=== PATIENT | male | born 1950 | race Caucasian/White ===

== ENCOUNTER → 2016-09-24 | Outpatient (CLI) | payer MEDICARE, OTHER ==
--- NOTE | 2016-09-24 09:26 | CT ---
EXAMINATION TYPE: CT chest wo con DATE OF EXAM: 09/24/2016 9:00 AM COMPARISON: 03/09/2016 HISTORY: 65-year-old male short of breath, follow-up to prior abnormal exam. TECHNIQUE: Contiguous axial scanning of the chest without IV contrast. Coronal and sagittal reconstru ctions performed. CT DLP: 382 mGycm Automated exposure control for dose reduction was used. FINDINGS: The heart is normal size without pericardial effusion. Coronary vessel calcifications are present und er a marker for coronary artery disease. Ascending aorta measures at the upper limits of normal at 3.5 cm. Moderate atherosclerotic arch calci fications with conventional arch vessel branching anatomy. No thoracic lymphadenopathy. There is a dependent filling defect within the proximal left mainstem bronchus measuring 1.4 cm, new from prior, suspected retained secretions/debris. There is mild diffuse bronchial wall thickening and advanced emphysematous change. New elongated spiculated density peripheral right upper lobe axial image 14 and coronal image 45 christian uring 1.7 x 0.7 x 2.4 cm. A second area of poorly defined 9 mm density posterior left upper lobe axia l image 12. The previously seen 8 mm peripheral left basilar pulmonary nodule has resolved suggesting a nodular a chinedu of atelectasis. No consolidation or pleural effusion. Postsurgical changes at the stomach and GE junction. Bones: Old healed lower left lateral rib fracture deformity again demonstrated. Mild superior endplate compr ession deformity of T8 is chronic. No osseous destructive process. IMPRESSION: 1. ADVANCED EMPHYSEMA WITH RESOLUTION OF THE PREVIOUSLY SEEN NODULE AT THE PERIPHERAL LEFT BASE. 2. HOWEVER, THERE IS A NEW ELONGATED SPICULATED DENSITY MEASURING 1.7 X 0.7 X 2.4 CM IN THE RIGHT UPP ER LOBE. GIVEN THE RAPID DEVELOPMENT OF A LESION THIS SIZE AND ELONGATED APPEARANCE, AN INFECTIOUS/IN FLAMMATORY FOCUS IS SOMEWHAT FAVORED OVER NEOPLASM. CLINICAL CORRELATION RECOMMENDED. EITHER 3 MONTH FOLLOW-UP EXAM OR PET-CT CAN BE PERFORMED.
== END | disposition home or self-care (01) ==
LOC: RADCTMAIN 08:41
PROVIDERS: ATTEND Internal Medicine
DX: J43.9 Emphysema, unspecified (principal); J98.4 Other disorders of lung; R91.1 Solitary pulmonary nodule
CPT/HCPCS: 71250

== ENCOUNTER 2017-12-29 20:02 | Emergency (ER) | payer MEDICARE, OTHER ==
[2017-12-29 20:32] VITALS: RESP 18
[2017-12-29 20:59] LABS: Basophils % (A) 0 %; Eosinophils # (A) 0.2 k/uL (0-0.7); Eosinophils % (A) 2 %; HCT 47.1 % (39.0-53.0); HGB 14.9 gm/dL (13.0-17.5); Lymphocytes # (A) 1.2 k/uL (1.0-4.8); Lymphocytes % (A) 11 %; MCH 29.9 pg (25.0-35.0); MCHC 31.7 g/dL (31.0-37.0); MCV 94.5 fL (80.0-100.0); Monocytes # (A) 0.6 k/uL (0-1.0); Monocytes % (A) 5 %; Neutrophils # (A) 8.9 k/uL (1.3-7.7); Neutrophils % (A) 81 %; Platelet Count 279 k/uL (150-450); RBC 4.99 m/uL (4.30-5.90); WBC 11.1 k/uL (3.8-10.6)
--- NOTE | 2017-12-29 21:00 | ED ---
Fall HPI - General Source: patient Mode of arrival: ambulatory <Latrell Alex - Last Filed: 12/29/17 20:48> <Ligia Hurtado - Last Filed: 12/30/17 00:05> - General Chief Complaint: Fall Stated Complaint: hand & rib injury/SOB Time Seen by Provider: 12/29/17 20:41 - History of Present Illness Initial Comments: 67-year-old male with past medical history of PE, DVT, exposure to hep C, COPD on 3-4 L of oxygen, pressure gastrectomy, partial vagotomy, and appendectomy presented for evaluation of a mechanical fall from standing. States that he was on the fourth step going up the stairs when he tripped over a branch fell backwards. He denies hitting his head and loss of consciousness however he is on Ellick was for the PEs and DVTs. States that he was able to get back up however due to him being on the Ellick was he came to the ED for further treatment and evaluation. He does state that he has left sided chest wall pain and right hand and wrist pain. Denies any other injuries. Has no other complaints. (Latrell Alex) - Related Data Home Medications Medication Instructions Recorded Confirmed Albuterol Nebulized [Ventolin 2.5 mg INHALATION RT-Q4H PRN 11/25/15 12/29/17 Nebulized] Albuterol Sulfate [Proventil Hfa] 2 puff INHALATION RT-Q6H PRN 11/25/15 12/29/17 Budesonide-Formot 160-4.5 Mcg 2 puff INHALATION RT-BID 11/25/15 12/29/17 [Symbicort 160-4.5 Mcg Inhaler] Cyanocobalamin [Vitamin B-12] 1,000 mcg PO DAILY 11/25/15 12/29/17 Tiotropium 18 Mcg/Puff [Spiriva] 1 cap INHALATION RT-DAILY 11/25/15 12/29/17 HYDROcodone/APAP 10-325MG [[place] 1 tab PO Q4HR PRN 03/09/16 12/29/17 10-325] Omeprazole 40 mg PO BID 03/09/16 12/29/17 Apixaban [Eliquis] 2.5 mg PO BID 12/29/17 12/29/17 Melatonin 5 mg PO HS 12/29/17 12/29/17 Morphine Sulfate ER [Ms Contin 30 mg PO Q12HR 12/29/17 12/29/17 30Mg] Sennosides [Senna] 8.6 mg PO DAILY 12/29/17 12/29/17 Previous Rx's Medication Instructions Recorded ALPRAZolam [Xanax] 0.25 mg PO TID PRN #20 tab 09/19/15 Allergies Allergy/AdvReac Type Severity Reaction Status Date / Time theophylline Allergy Rash/Hives Verified 12/29/17 21:41 metaproterenol sulfate AdvReac shaking Verified 12/29/17 21:41 [From Alupent] Review of Systems ROS Other: All systems not noted in ROS Statement are negative. Constitutional: Denies: fever, chills Eyes: Denies: eye pain, vision change ENT: Denies: ear pain, throat pain Respiratory: Reports: dyspnea (At baseline). Denies: cough Cardiovascular: Denies: chest pain, palpitations Endocrine: Denies: fatigue, polydipsia, polyuria Gastrointestinal: Denies: abdominal pain, nausea, vomiting Genitourinary: Denies: urgency, dysuria Musculoskeletal: Reports: arthralgia (Left-sided chest wall pain and right wrist /hand pain). Denies: back pain Skin: Reports: lesions (Puncture lesion to the posterior aspect of the right hand). Denies: rash Neurological: Denies: headache, weakness Psychiatric: Denies: anxiety, depression Hematological/Lymphatic: Reports: easy bleeding (on Eliquis), easy bruising (On Eliquis) <Latrell Alex - Last Filed: 12/29/17 20:48> ROS Other: All systems not noted in ROS Statement are negative. <Ligia Hurtado - Last Filed: 12/30/17 00:05> ROS Statement: Those systems with pertinent positive or pertinent negative responses have been documented in the HPI. Past Medical History Past Medical History: COPD, GERD/Reflux Additional Past Medical History / Comment(s): exposure in past to Hep. C, recent admission in Sep. for COPD-went to [facility] for short time after for rehab to build up strength, using oxygen most of the time 3-4l History of Any Multi-Drug Resistant Organisms: None Reported Past Surgical History: Appendectomy Additional Past Surgical History / Comment(s): 70% OF STOMACH REMOVED R/T ULCER DISEASE, partial vagotomy. Past Anesthesia/Blood Transfusion Reactions: No Reported Reaction Past Psychological History: Anxiety, Depression Smoking Status: Former smoker Past Alcohol Use History: None Reported Past Drug Use History: None Reported - Past Family History Mother Additional Family Medical History / Comment(s): ? brain tumor Father History Unknown: Yes Additional Family Medical History / Comment(s): lymphoma <Latrell Alex - Last Filed: 12/29/17 20:48> General Exam Limitations: no limitations General appearance: alert, in no apparent distress Head exam: Present: atraumatic, normocephalic, normal inspection Eye exam: Present: normal appearance, PERRL, EOMI. Absent: scleral icterus, conjunctival injection, periorbital swelling ENT exam: Present: normal exam, mucous membranes moist Neck exam: Present: normal inspection, full ROM. Absent: tenderness Respiratory exam: Absent: normal lung sounds bilaterally, respiratory distress Cardiovascular Exam: Present: regular rate, normal rhythm GI/Abdominal exam: Present: soft. Absent: distended, tenderness, guarding, rebound, rigid Rectal exam: Present: deferred Extremities exam: Present: tenderness, normal capillary refill, joint swelling. Absent: normal inspection, full ROM Back exam: Present: tenderness, CVA tenderness (R). Absent: normal inspection, full ROM Neurological exam: Present: alert, oriented X3 Psychiatric exam: Present: normal affect, normal mood Skin exam: Present: warm, dry, other (laceration to dorsum of hand) <Latrell Alex - Last Filed: 12/29/17 20:48> Course <Latrell Alex - Last Filed: 12/29/17 20:48> <Ligia Hurtado - Last Filed: 12/30/17 00:05> Vital Signs 12/29/17 12/29/17 20:27 21:39 Temperature 97.5 F L 97.1 F L Pulse Rate 94 89 Respiratory 18 18 Rate Blood Pressure 97/59 125/74 O2 Sat by Pulse 92 L 96 Oximetry Patient is reassessed, wrist x-ray, chest x-ray, rib series, hand, C-spine and a CT of the brain and cervical spine are unremarkable, this was discussed with the patient and be discharged to follow with his family doctor (Ligia Hurtado) - Reevaluation(s) Reevaluation #1: we wii ambulate him in the ER and see if he is stableon his feet 12/30/17 00:03 (Ligia Hurtado) Medical Decision Making <Latrell Alex - Last Filed: 12/29/17 20:48> - Lab Data Result diagrams: 12/29/17 20:45 12/29/17 20:45 <Ligia Hurtado - Last Filed: 12/30/17 00:05> - Medical Decision Making 67 yo male on Eliquis for PE/DVT presenting for evaluation of mechanical fall down 4 stairs. On physical examination he has no tenderness to the head neck or back. He does have tenderness to the left chest wall and the right hand/ wrist. There is a puncture wound to the palmar aspect of the right hand and a laceration to the dorsum of the right hand. [place] physical exam is benign with the exception of the patient being on oxygen for COPD and being mildly short of breath. Given that the patient had a fall from a height while on Ellick was this is a P2 trauma and the on-call surgeon was called and informed of plan to obtain CT head/neck, xrays of injuries, and obtain labs. He agreed with plan and had no further requests. (Latrell Alex) - Lab Data Lab Results 12/29/17 12/29/17 12/29/17 Range/Units 20:45 20:45 20:45 WBC 11.1 H (3.8-10.6) k/uL RBC 4.99 (4.30-5.90) m/uL Hgb 14.9 (13.0-17.5) gm/dL Hct 47.1 (39.0-53.0) % MCV 94.5 (80.0-100.0) fL MCH 29.9 (25.0-35.0) pg MCHC 31.7 (31.0-37.0) g/dL RDW 14.0 (11.5-15.5) % Plt Count 279 (150-450) k/uL Neutrophils % 81 % Lymphocytes % 11 % Monocytes % 5 % Eosinophils % 2 % Basophils % 0 % Neutrophils # 8.9 H (1.3-7.7) k/uL Lymphocytes # 1.2 (1.0-4.8) k/uL Monocytes # 0.6 (0-1.0) k/uL Eosinophils # 0.2 (0-0.7) k/uL Basophils # 0.0 (0-0.2) k/uL PT (9.0-12.0) sec INR (<1.2) APTT (22.0-30.0) sec Sodium 139 (137-145) mmol/L Potassium 5.2 H (3.5-5.1) mmol/L Chloride 97 L (98-107) mmol/L Carbon Dioxide 30 (22-30) mmol/L Anion Gap 12 mmol/L BUN 16 (9-20) mg/dL Creatinine 0.80 (0.66-1.25) mg/dL Est GFR (CKD-EPI)AfAm >90 (>60 ml/min/1.73 sqM) Est GFR (CKD-EPI)NonAf >90 (>60 ml/min/1.73 sqM) Glucose 97 (74-99) mg/dL Plasma Lactic Acid Calin (0.7-2.0) mmol/L Calcium 9.7 (8.4-10.2) mg/dL Total Bilirubin 0.5 (0.2-1.3) mg/dL AST 38 (17-59) U/L ALT 31 (21-72) U/L Alkaline Phosphatase 66 (38-126) U/L Total Creatine Kinase 179 H (55-170) U/L CK-MB (CK-2) 5.0 H* (0.0-2.4) ng/mL CK-MB (CK-2) Rel Index 2.8 Troponin I <0.012 (0.000-0.034) ng/mL Total Protein 7.3 (6.3-8.2) g/dL Albumin 4.5 (3.5-5.0) g/dL Amylase 59 (30-110) U/L Lipase 61 (23-300) U/L Serum Alcohol <10 mg/dL Blood Type Blood Type Recheck Antibody Screen Spec Expiration Date 12/29/17 12/29/17 12/29/17 Range/Units 20:45 20:45 20:45 WBC (3.8-10.6) k/uL RBC (4.30-5.90) m/uL Hgb (13.0-17.5) gm/dL Hct (39.0-53.0) % MCV (80.0-100.0) fL MCH (25.0-35.0) pg MCHC (31.0-37.0) g/dL RDW (11.5-15.5) % Plt Count (150-450) k/uL Neutrophils % % Lymphocytes % % Monocytes % % Eosinophils % % Basophils % % Neutrophils # (1.3-7.7) k/uL Lymphocytes # (1.0-4.8) k/uL Monocytes # (0-1.0) k/uL Eosinophils # (0-0.7) k/uL Basophils # (0-0.2) k/uL PT 9.5 (9.0-12.0) sec INR 1.0 (<1.2) APTT 23.5 (22.0-30.0) sec Sodium (137-145) mmol/L Potassium (3.5-5.1) mmol/L Chloride (98-107) mmol/L Carbon Dioxide (22-30) mmol/L Anion Gap mmol/L BUN (9-20) mg/dL Creatinine (0.66-1.25) mg/dL Est GFR (CKD-EPI)AfAm (>60 ml/min/1.73 sqM) Est GFR (CKD-EPI)NonAf (>60 ml/min/1.73 sqM) Glucose (74-99) mg/dL Plasma Lactic Acid Calin 1.9 (0.7-2.0) mmol/L Calcium (8.4-10.2) mg/dL Total Bilirubin (0.2-1.3) mg/dL AST (17-59) U/L ALT (21-72) U/L Alkaline Phosphatase (38-126) U/L Total Creatine Kinase (55-170) U/L CK-MB (CK-2) (0.0-2.4) ng/mL CK-MB (CK-2) Rel Index Troponin I (0.000-0.034) ng/mL Total Protein (6.3-8.2) g/dL Albumin (3.5-5.0) g/dL Amylase (30-110) U/L Lipase (23-300) U/L Serum Alcohol mg/dL Blood Type A Negative Blood Type Recheck CABO Indicated Antibody Screen NEGATIVE Spec Expiration Date 01/01/2018 - 7194 Disposition <Latrell Alex - Last Filed: 12/29/17 20:48> <Ligia Hurtado - Last Filed: 12/30/17 00:05> Clinical Impression: Fall Instructions: Fall Prevention for Older Adults (ED) Referrals: Nonstaff,Physician [Primary Care Provider] - 1-2 days
[2017-12-29 21:10] LABS: ALT 31 U/L (21-72); AST 38 U/L (17-59); Albumin 4.5 g/dL (3.5-5.0); Alcohol <10 mg/dL; Alkaline Phosphatase 66 U/L (38-126); Amylase 59 U/L (30-110); Anion Gap 12 mmol/L; Blood Urea Nitrogen 16 mg/dL (9-20); Calcium 9.7 mg/dL (8.4-10.2); Carbon Dioxide 30 mmol/L (22-30); Chloride 97 mmol/L (98-107); Glucose 97 mg/dL (74-99); Lipase 61 U/L (23-300); Potassium 5.2 mmol/L (3.5-5.1); Sodium 139 mmol/L (137-145); Total Bilirubin 0.5 mg/dL (0.2-1.3); Total Protein 7.3 g/dL (6.3-8.2)
[2017-12-29 21:21] LABS: Partial Thromboplastin Time 23.5 sec (22.0-30.0); Prothrombin Time 9.5 sec (9.0-12.0)
[2017-12-29 21:28] LABS: Creatine Kinase 179 U/L (55-170)
[2017-12-29 21:40] VITALS: TEMP 97.1
[2017-12-29 21:41] LABS: Troponin I <0.012 ng/mL (0.000-0.034)
--- NOTE | 2017-12-29 22:07 | CT ---
EXAMINATION TYPE: CT brain carly rojas DATE OF EXAM: 12/29/2017 COMPARISON: NONE HISTORY: Fall down 4 stairs today, patient on blood thinners. CT DLP: 1357.8 mGycm Automated exposure control for dose reduction was used. TECHNIQUE: CT scan of the head and cervical spine are performed without contrast. FINDINGS: There is no acute intracranial hemorrhage, mass effect, or midline shift identified. The ventricles and sulci are within normal limits in size. The globes are intact and the visualized sin uses are clear. Cervical spine is visualized in its entirety from C1 through upper thoracic levels and demonstrates s atisfactory alignment without evidence of acute fracture or dislocation. Prevertebral soft tissue ap pears within normal limits. The C1-C2 articulation is unremarkable. IMPRESSION: 1. There is no acute fracture or dislocation evident in the cervical spine. 2. No acute intracranial hemorrhage, mass effect, or midline shift is seen.
--- NOTE | 2017-12-29 22:49 | XR ---
PROCEDURE: XR wrist complete RT 4 views DATE AND TIME: 12/29/2017 9:30 PM REFERRING PHYSICIAN: Latrell Alex DO CLINICAL INDICATION: PHH, Pain after trauma TECHNIQUE: Department protocol. COMPARISON: None FINDINGS: There is no fracture or malalignment. The soft tissues are unremarkable. IMPRESSION: NO ACUTE PROCESS.
--- NOTE | 2017-12-29 22:52 | XR ---
PROCEDURE: XR ribs LT w pa chest xray - 5V DATE AND TIME: 12/29/2017 9:30 PM REFERRING PHYSICIAN: Latrell Alex DO CLINICAL INDICATION: PHH, Pain TECHNIQUE: Department protocol. COMPARISON: 09/18/2015 FINDINGS: There is no pneumothorax or pleural effusion. There is no fracture or malalignment. No incidental acute findings. IMPRESSION: NO ACUTE PROCESS.
--- NOTE | 2017-12-29 22:54 | XR ---
PROCEDURE: XR hand complete RT 3 views DATE AND TIME: 12/29/2017 9:30 PM REFERRING PHYSICIAN: Latrell Alex DO CLINICAL INDICATION: PHH, Pain after trauma TECHNIQUE: Department protocol. COMPARISON: None FINDINGS: There is no fracture or malalignment. The soft tissues are unremarkable. IMPRESSION: NO ACUTE PROCESS.
[2017-12-30 00:21] VITALS: BP 126/72; PULSE 84
== END 2017-12-30 00:16 ==
LOC: EC 20:02
DX: S61.411A Laceration without foreign body of right hand, initial encounter (principal); R07.89 Other chest pain; J44.9 Chronic obstructive pulmonary disease, unspecified; K21.9 Gastro-esophageal reflux disease without esophagitis; F32.9 Major depressive disorder, single episode, unspecified; F41.9 Anxiety disorder, unspecified; Z86.19 Personal history of other infectious and parasitic diseases; Z87.891 Personal history of nicotine dependence; Z86.711 Personal history of pulmonary embolism; Z86.718 Personal history of other venous thrombosis and embolism; Z79.01 Long term (current) use of anticoagulants; Z79.891 Long term (current) use of opiate analgesic; Z79.51 Long term (current) use of inhaled steroids; Z79.899 Other long term (current) drug therapy; Z88.8 Allergy status to other drugs, medicaments and biological substances; W10.9XXA Fall (on) (from) unspecified stairs and steps, initial encounter; Y92.89 Other specified places as the place of occurrence of the external cause
CPT/HCPCS: 36415; 70450; 72125; 80053; 80320; 82150; 82550; 82553; 83605; 83690; 84484; 85025; 85610; 85730; 86850; 86900; 86901; 99284

== ENCOUNTER 2018-02-15 14:03 | Inpatient (IN) | payer MEDICARE, OTHER ==
[2018-02-15] MEDS ORDERED: SODIUM CHLORIDE 0.9% 1,000 ML IV STA (14:12)
[2018-02-15] MEDS ORDERED: AZITHROMYCIN 500 MG in SODIUM CHLORIDE 0.9% 250 ML IVPB STA (14:12)
[2018-02-15] MEDS ORDERED: ALBUTEROL NEBULIZED 2.5 MG/3 ML INHALATION STA (14:12)
[2018-02-15] MEDS ORDERED: IPRATROPIUM 0.5 MG/2.5 ML NEBU INHALATION STA (14:12)
[2018-02-15] MEDS ORDERED: AZITHROMYCIN 500 MG in DEXTROSE 5% IN WATER 250 ML IVPB STA ×2 (14:33)
[2018-02-15 14:51] LABS: Basophils % (A) 0 %; Eosinophils % (A) 0 %; HCT 49.2 % (39.0-53.0); HGB 15.6 gm/dL (13.0-17.5); Lymphocytes # (A) 0.7 k/uL (1.0-4.8); Lymphocytes % (A) 9 %; MCH 29.4 pg (25.0-35.0); MCHC 31.8 g/dL (31.0-37.0); MCV 92.6 fL (80.0-100.0); Mean Platelet Volume 6.9; Monocytes # (A) 0.6 k/uL (0-1.0); Monocytes % (A) 9 %; Neutrophils # (A) 5.7 k/uL (1.3-7.7); Neutrophils % (A) 80 %; Platelet Count 328 k/uL (150-450); RBC 5.31 m/uL (4.30-5.90); RDW 13.6 % (11.5-15.5); WBC 7.1 k/uL (3.8-10.6)
[2018-02-15 15:02] LABS: Partial Thromboplastin Time 25.8 sec (22.0-30.0); Prothrombin Time 9.7 sec (9.0-12.0)
[2018-02-15 15:06] LABS: ALT 27 U/L (21-72); AST 31 U/L (17-59); Albumin 3.8 g/dL (3.5-5.0); Alkaline Phosphatase 68 U/L (38-126); Anion Gap 11 mmol/L; Blood Urea Nitrogen 18 mg/dL (9-20); Carbon Dioxide 34 mmol/L (22-30); Chloride 90 mmol/L (98-107); Glucose 119 mg/dL (74-99); Magnesium 2.2 mg/dL (1.6-2.3); Potassium 5.1 mmol/L (3.5-5.1); Sodium 135 mmol/L (137-145); Total Bilirubin 0.6 mg/dL (0.2-1.3)
[2018-02-15 15:34] LABS: Creatine Kinase 50 U/L (55-170)
[2018-02-15 15:47] LABS: Troponin I <0.012 ng/mL (0.000-0.034)
[2018-02-15] MEDS ORDERED: methylPREDNISolone SOD SUCCI 125 MG/2 ML VIAL IV STA (15:51)
--- NOTE | 2018-02-15 15:51 | ED ---
General Adult HPI - General Chief complaint: Shortness of Breath Stated complaint: SOB Time Seen by Provider: 02/15/18 14:07 Source: patient, RN notes reviewed, old records reviewed Mode of arrival: wheelchair Limitations: no limitations - History of Present Illness Initial comments: This is a 67-year-old male the ER for evasive significant short of breath. Patient is found in front of hospital with significant dyspnea and trouble catching his breath. Patient continues to complain of shortness of breath. Has a long history of smoking. Currently denying any pain, does have increased cough and congestion states symptoms 2 weeks much worse over last 2 days with increase in sputum and change in color of sputum to very dark. Denies blood. Denies fevers. No travel history no recent hospitalizations no known sick contacts - Related Data Home Medications Medication Instructions Recorded Confirmed Albuterol Nebulized [Ventolin 2.5 mg INHALATION RT-Q4H PRN 11/25/15 02/15/18 Nebulized] Albuterol Sulfate [Proventil Hfa] 2 puff INHALATION RT-Q6H PRN 11/25/15 02/15/18 Budesonide-Formot 160-4.5 Mcg 2 puff INHALATION RT-BID 11/25/15 02/15/18 [Symbicort 160-4.5 Mcg Inhaler] Cyanocobalamin [Vitamin B-12] 1,000 mcg PO DAILY 11/25/15 02/15/18 Tiotropium 18 Mcg/Puff [Spiriva] 1 cap INHALATION RT-DAILY 11/25/15 02/15/18 HYDROcodone/APAP 10-325MG [[place] 1 tab PO Q4HR PRN 03/09/16 02/15/18 10-325] Apixaban [Eliquis] 2.5 mg PO BID 12/29/17 02/15/18 Morphine Sulfate ER [Ms Contin 30 mg PO Q12HR PRN 12/29/17 02/15/18 30Mg] Sennosides [Senna] 8.6 mg PO DAILY 12/29/17 02/15/18 LORazepam [Ativan] 1 mg PO Q6H PRN 02/15/18 02/15/18 Omeprazole 20 mg PO BID 02/15/18 02/15/18 Ranitidine HCl [Zantac] 150 mg PO BID 02/15/18 02/15/18 Previous Rx's Medication Instructions Recorded ALPRAZolam [Xanax] 0.25 mg PO TID PRN #20 tab 09/19/15 Allergies Allergy/AdvReac Type Severity Reaction Status Date / Time theophylline Allergy Rash/Hives Verified 02/15/18 14:55 metaproterenol sulfate AdvReac shaking Verified 02/15/18 14:55 [From Alupent] Review of Systems ROS Statement: Those systems with pertinent positive or pertinent negative responses have been documented in the HPI. ROS Other: All systems not noted in ROS Statement are negative. Past Medical History Past Medical History: COPD, GERD/Reflux Additional Past Medical History / Comment(s): exposure in past to Hep. C, recent admission in Sep. for COPD-went to [facility] for short time after for rehab to build up strength, using oxygen most of the time 3-4l History of Any Multi-Drug Resistant Organisms: None Reported Past Surgical History: Appendectomy Additional Past Surgical History / Comment(s): 70% OF STOMACH REMOVED R/T ULCER DISEASE, partial vagotomy. Past Anesthesia/Blood Transfusion Reactions: No Reported Reaction Past Psychological History: Anxiety, Depression Smoking Status: Former smoker Past Alcohol Use History: None Reported Past Drug Use History: None Reported - Past Family History Mother Additional Family Medical History / Comment(s): ? brain tumor Father History Unknown: Yes Additional Family Medical History / Comment(s): lymphoma General Exam Limitations: no limitations General appearance: alert, in no apparent distress, anxious Head exam: Present: atraumatic, normocephalic, normal inspection Eye exam: Present: normal appearance, PERRL, EOMI. Absent: scleral icterus, conjunctival injection, periorbital swelling ENT exam: Present: normal exam, mucous membranes moist Neck exam: Present: normal inspection. Absent: tenderness, meningismus, lymphadenopathy Respiratory exam: Present: normal lung sounds bilaterally. Absent: respiratory distress, wheezes, rales, rhonchi, stridor Cardiovascular Exam: Present: normal rhythm, tachycardia, normal heart sounds. Absent: systolic murmur, diastolic murmur, rubs, gallop, clicks GI/Abdominal exam: Present: soft, normal bowel sounds. Absent: distended, tenderness, guarding, rebound, rigid Extremities exam: Present: normal inspection, full ROM, normal capillary refill. Absent: tenderness, pedal edema, joint swelling, calf tenderness Back exam: Present: normal inspection Neurological exam: Present: alert, oriented X3, CN II-XII intact Psychiatric exam: Present: normal affect, normal mood Skin exam: Present: warm, dry, intact, normal color. Absent: rash Course Vital Signs 02/15/18 02/15/18 02/15/18 14:12 14:26 14:37 Temperature 97 F L Pulse Rate 115 H 108 H Respiratory 24 24 Rate Blood Pressure 147/86 O2 Sat by Pulse 98 Oximetry 02/15/18 02/15/18 14:58 15:29 Temperature Pulse Rate 108 H 110 H Respiratory Rate Blood Pressure O2 Sat by Pulse Oximetry - Reevaluation(s) Reevaluation #1: 02/15/18 15:50 Patient has mild improvement with breathing EKG Findings - EKG Comments: EKG Findings:: EKG shows sinus tachycardia rate 110, MO 1:30, QRS 74, QTc 435 Medical Decision Making - Medical Decision Making 67 male the ER with significant shortness of breath and COPD exacerbation with hypoxia. Patient is to be admitted for rehydration, cardiopulmonary support, continue breathing treatments and steroids. - Lab Data Result diagrams: 02/15/18 14:29 02/15/18 14:29 Lab Results 02/15/18 02/15/18 02/15/18 Range/Units 14:29 14:29 14:29 WBC 7.1 (3.8-10.6) k/uL RBC 5.31 (4.30-5.90) m/uL Hgb 15.6 (13.0-17.5) gm/dL Hct 49.2 (39.0-53.0) % MCV 92.6 (80.0-100.0) fL MCH 29.4 (25.0-35.0) pg MCHC 31.8 (31.0-37.0) g/dL RDW 13.6 (11.5-15.5) % Plt Count 328 (150-450) k/uL Neutrophils % 80 % Lymphocytes % 9 % Monocytes % 9 % Eosinophils % 0 % Basophils % 0 % Neutrophils # 5.7 (1.3-7.7) k/uL Lymphocytes # 0.7 L (1.0-4.8) k/uL Monocytes # 0.6 (0-1.0) k/uL Eosinophils # 0.0 (0-0.7) k/uL Basophils # 0.0 (0-0.2) k/uL PT (9.0-12.0) sec INR (<1.2) APTT (22.0-30.0) sec Sodium 135 L (137-145) mmol/L Potassium 5.1 (3.5-5.1) mmol/L Chloride 90 L (98-107) mmol/L Carbon Dioxide 34 H (22-30) mmol/L Anion Gap 11 mmol/L BUN 18 (9-20) mg/dL Creatinine 0.65 L (0.66-1.25) mg/dL Est GFR (CKD-EPI)AfAm >90 (>60 ml/min/1.73 sqM) Est GFR (CKD-EPI)NonAf >90 (>60 ml/min/1.73 sqM) Glucose 119 H (74-99) mg/dL Calcium 9.0 (8.4-10.2) mg/dL Magnesium 2.2 (1.6-2.3) mg/dL Total Bilirubin 0.6 (0.2-1.3) mg/dL AST 31 (17-59) U/L ALT 27 (21-72) U/L Alkaline Phosphatase 68 (38-126) U/L Total Creatine Kinase 50 L (55-170) U/L NT-Pro-B Natriuret Pep pg/mL Total Protein 7.0 (6.3-8.2) g/dL Albumin 3.8 (3.5-5.0) g/dL 02/15/18 02/15/18 Range/Units 14:29 14:29 WBC (3.8-10.6) k/uL RBC (4.30-5.90) m/uL Hgb (13.0-17.5) gm/dL Hct (39.0-53.0) % MCV (80.0-100.0) fL MCH (25.0-35.0) pg MCHC (31.0-37.0) g/dL RDW (11.5-15.5) % Plt Count (150-450) k/uL Neutrophils % % Lymphocytes % % Monocytes % % Eosinophils % % Basophils % % Neutrophils # (1.3-7.7) k/uL Lymphocytes # (1.0-4.8) k/uL Monocytes # (0-1.0) k/uL Eosinophils # (0-0.7) k/uL Basophils # (0-0.2) k/uL PT 9.7 (9.0-12.0) sec INR 1.0 (<1.2) APTT 25.8 (22.0-30.0) sec Sodium (137-145) mmol/L Potassium (3.5-5.1) mmol/L Chloride (98-107) mmol/L Carbon Dioxide (22-30) mmol/L Anion Gap mmol/L BUN (9-20) mg/dL Creatinine (0.66-1.25) mg/dL Est GFR (CKD-EPI)AfAm (>60 ml/min/1.73 sqM) Est GFR (CKD-EPI)NonAf (>60 ml/min/1.73 sqM) Glucose (74-99) mg/dL Calcium (8.4-10.2) mg/dL Magnesium (1.6-2.3) mg/dL Total Bilirubin (0.2-1.3) mg/dL AST (17-59) U/L ALT (21-72) U/L Alkaline Phosphatase (38-126) U/L Total Creatine Kinase (55-170) U/L NT-Pro-B Natriuret Pep 927 pg/mL Total Protein (6.3-8.2) g/dL Albumin (3.5-5.0) g/dL - Radiology Data Radiology results: report reviewed (Chest x-rays negative for acute disease), image reviewed Disposition Clinical Impression: COPD with acute exacerbation, Acute exacerbation of chronic obstructive airways disease Disposition: ADMITTED IP TO THIS [facility] Condition: Fair Is patient prescribed a controlled substance at d/c from ED?: No Referrals: Nonstaff,Physician [Primary Care Provider] - 1-2 days
[2018-02-15 15:52] LABS: Creatine Kinase MB 2.8 ng/mL (0.0-2.4)
--- NOTE | 2018-02-15 16:21 | XR ---
EXAMINATION TYPE: XR chest 1V portable DATE OF EXAM: 02/15/2018 CLINICAL HISTORY: Difficulty breathing progress study. History of COPD. TECHNIQUE: Single AP portable upright view of the chest is obtained. COMPARISON: Chest x-ray from December 29, 2017. CT chest September 24, 2016. FINDINGS: There is underlying emphysematous change redemonstrated. There is persistent blunting of b ilateral costophrenic angles likely product of underlying COPD. Scattered areas of parenchymal scarri ng are redemonstrated bilaterally. There is persistent spiculated nodule lateral right upper lung fel t grossly stable but was new from 2015 CT. follow-up CT and/or PET CT is advised if no further workup was performed since September 2016. No new suspicious focal airspace opacity or pneumothorax is seen bilaterally. Cardiac silhouette size is stable and within normal limits with atherosclerotic thoracic aorta. Osseous structures are intact. IMPRESSION: Overall stable findings, chronic emphysematous change without acute pulmonary process. Other findings as noted above.
[2018-02-15] MEDS ORDERED: SENNOSIDES 8.6 MG TAB PO PRN (17:12)
[2018-02-15] MEDS ORDERED: ALPRAZolam 0.25 MG TAB PO PRN (17:12)
--- NOTE | 2018-02-15 17:41 | P.HPIM ---
History of Present Illness 67-year-old the male came in with compensative shortness of breath has been going on for be progressively worsening patient has advanced COPD uses about 3 L of oxygen at rest and 4 L upon amble and. Patient is unable to even walk a few feet without getting short of breath patient is comparing of cough without any sputum production chest x-ray did not show any pneumonic process. Patient was started on IV steroids, his demisewas subsequently admitted. Patient with anti-correlation not sure why he is on anti-correlation as to have to check with the patient. Patient denied any fever chills. Patient quit smoking 2 months ago Review of Systems REVIEW OF SYSTEMS: CONSTITUTIONAL: No fever, no malaise, no fatigue. HEENT: No recent visual problems or hearing problems. Denied any sore throat. CARDIOVASCULAR: No chest pain, orthopnea, PND, no palpitations, no syncope. PULMONARY: As mentioned in HPI GASTROINTESTINAL: No diarrhea, no nausea, no vomiting, no abdominal pain. Normoactive bowel sounds. NEUROLOGICAL: No headaches, no weakness, no numbness. HEMATOLOGICAL: Denies any bleeding or petechiae. GENITOURINARY: Denies any burning micturition, frequency, or urgency. MUSCULOSKELETAL/RHEUMATOLOGICAL: Denies any joint pain, swelling, or any muscle pain. ENDOCRINE: Denies any polyuria or polydipsia. The rest of the 14-point review of systems is negative. Past Medical History Past Medical History: COPD, GERD/Reflux Additional Past Medical History / Comment(s): exposure in past to Hep. C, recent admission in Sep. for COPD-went to [facility] for short time after for rehab to build up strength, using oxygen most of the time 3-4l History of Any Multi-Drug Resistant Organisms: None Reported Past Surgical History: Appendectomy Additional Past Surgical History / Comment(s): 70% OF STOMACH REMOVED R/T ULCER DISEASE, partial vagotomy. Past Anesthesia/Blood Transfusion Reactions: No Reported Reaction Past Psychological History: Anxiety, Depression Smoking Status: Former smoker Past Alcohol Use History: None Reported Past Drug Use History: None Reported - Past Family History Mother Additional Family Medical History / Comment(s): ? brain tumor Father History Unknown: Yes Additional Family Medical History / Comment(s): lymphoma Medications and Allergies Home Medications Medication Instructions Recorded Confirmed Type ALPRAZolam [Xanax] 0.25 mg PO TID PRN #20 tab 09/19/15 02/15/18 Rx Albuterol Nebulized [Ventolin 2.5 mg INHALATION RT-Q4H PRN 11/25/15 02/15/18 History Nebulized] Albuterol Sulfate [Proventil Hfa] 2 puff INHALATION RT-Q6H PRN 11/25/15 History Budesonide-Formot 160-4.5 Mcg 2 puff INHALATION RT-BID 11/25/15 02/15/18 History [Symbicort 160-4.5 Mcg Inhaler] Cyanocobalamin [Vitamin B-12] 1,000 mcg PO DAILY 11/25/15 02/15/18 History Tiotropium 18 Mcg/Puff [Spiriva] 1 cap INHALATION RT-DAILY 11/25/15 02/15/18 History HYDROcodone/APAP 10-325MG [[place] 1 tab PO Q4HR PRN 03/09/16 02/15/18 History 10-325] Apixaban [Eliquis] 2.5 mg PO BID 12/29/17 02/15/18 History Morphine Sulfate ER [Ms Contin 30 mg PO Q12HR PRN 12/29/17 02/15/18 History 30Mg] Sennosides [Senna] 8.6 mg PO DAILY 12/29/17 02/15/18 History LORazepam [Ativan] 1 mg PO Q6H PRN 02/15/18 02/15/18 History Omeprazole 20 mg PO BID 02/15/18 02/15/18 History Ranitidine HCl [Zantac] 150 mg PO BID 02/15/18 02/15/18 History Allergies Allergy/AdvReac Type Severity Reaction Status Date / Time theophylline Allergy Rash/Hives Verified 02/15/18 14:55 metaproterenol sulfate AdvReac shaking Verified 02/15/18 14:55 [From Alupent] Physical Exam Vitals: Vital Signs Temp Pulse Resp BP Pulse Ox 02/15/18 16:51 97.7 F 107 H 20 117/66 99 02/15/18 15:29 110 H 02/15/18 14:58 108 H 02/15/18 14:37 24 02/15/18 14:26 108 H 02/15/18 14:12 97 F L 115 H 24 147/86 98 Intake and Output 02/15/18 02/15/18 02/15/18 06:59 14:59 22:59 Other: Weight 42.91 kg PHYSICAL EXAMINATION: GENERAL: The patient is alert and oriented x3, not in any acute distress. Well developed, well nourished. HEENT: Pupils are round and equally reacting to light. EOMI. No scleral icterus. No conjunctival pallor. Normocephalic, atraumatic. No pharyngeal erythema. No thyromegaly. CARDIOVASCULAR: S1 and S2 present. No murmurs, rubs, or gallops. PULMONARY: Diminished air entry into bilateral lung weir no wheezing was appreciated no crackles were appreciated ABDOMEN: Soft, nontender, nondistended, normoactive bowel sounds. No palpable organomegaly. MUSCULOSKELETAL: No joint swelling or deformity. EXTREMITIES: No cyanosis, clubbing, or pedal edema. NEUROLOGICAL: Gross neurological examination did not reveal any focal deficits. SKIN: No rashes. Results CBC & Chem 7: 02/15/18 14:29 02/15/18 14:29 Labs: Abnormal Lab Results - Last 24 Hours (Table) 02/15/18 02/15/18 02/15/18 Range/Units 14:29 14:29 14:29 Lymphocytes # 0.7 L (1.0-4.8) k/uL Sodium 135 L (137-145) mmol/L Chloride 90 L (98-107) mmol/L Carbon Dioxide 34 H (22-30) mmol/L Creatinine 0.65 L (0.66-1.25) mg/dL Glucose 119 H (74-99) mg/dL Total Creatine Kinase 50 L (55-170) U/L CK-MB (CK-2) 2.8 H* (0.0-2.4) ng/mL Assessment and Plan Plan: -Acute on chronic hypercapnic respiratory failure secondary to COPD exacerbation : Patient will be can you done systemic strides in nature treatments. Consult pulmonary. Patient has advanced COPD -Tracheobronchitis -Anxiety and depression -Gastroesophageal reflux disease -Chronic weight loss unintentional, further workup as an outpatient starting with regular screening procedures and CAT scan of the chest considering his smoking history
[2018-02-15 17:45] VITALS: BMI 13.9
[2018-02-15] MEDS: SODIUM CHLORIDE 0.9% 1,000 ML IV SCH (18:13)
[2018-02-15] MEDS: PANTOPRAZOLE 40 MG TABLET PO SCH (18:20)
[2018-02-15] MEDS ORDERED: methylPREDNISolone SOD SUCCI 125 MG/2 ML VIAL IV SCH (20:00)
[2018-02-15] MEDS: SYMBICORT 160-4.5 MCG INHALER INHALATION SCH (20:36)
[2018-02-15] MEDS: IPRATROPIUM-ALBUTEROL 3 ML NEB INHALATION SCH (20:36)
[2018-02-15 21:28] LABS: Glucose,Whole Blood 181 mg/dL (75-99)
[2018-02-15] MEDS: APIXABAN 2.5 MG TABLET PO SCH (22:25)
[2018-02-15] MEDS: INSULIN ASPART 100 UNIT/ML 1 ML 10 ML VIAL SQ SCH (22:25)
[2018-02-16] MEDS: methylPREDNISolone SOD SUCCI 40 MG/ML 1 ML VIAL IV SCH ×3 (00:31→17:36)
[2018-02-16] MEDS: SODIUM CHLORIDE 0.9% 1,000 ML IV SCH ×3 (03:50→21:05)
[2018-02-16 04:12] LABS: Hemoglobin A1C 5.5 % (4.0-6.0)
[2018-02-16 07:42] LABS: Glucose,Whole Blood 138 mg/dL (75-99)
[2018-02-16] MEDS: SYMBICORT 160-4.5 MCG INHALER INHALATION SCH ×2 (07:51→19:55)
[2018-02-16] MEDS: IPRATROPIUM-ALBUTEROL 3 ML NEB INHALATION SCH ×4 (07:51→19:55)
[2018-02-16] MEDS: INSULIN ASPART 100 UNIT/ML 1 ML 10 ML VIAL SQ SCH ×4 (08:22→21:05)
[2018-02-16] MEDS ORDERED: NICOTINE 21MG/24HR PATCH TRANSDERM SCH (09:00)
[2018-02-16] MEDS ORDERED: ENOXAPARIN 40 MG/0.4 ML SYRINGE SQ SCH (09:00)
[2018-02-16] MEDS: MORPHINE SULFATE ER 30 MG TABLET PO PRN (09:09)
[2018-02-16] MEDS: AZITHROMYCIN 500 MG TAB PO SCH (09:09)
[2018-02-16] MEDS: PANTOPRAZOLE 40 MG TABLET PO SCH ×2 (09:09→17:36)
[2018-02-16] MEDS: APIXABAN 2.5 MG TABLET PO SCH ×2 (09:10→21:04)
[2018-02-16 12:20] LABS: Glucose,Whole Blood 215 mg/dL (75-99)
--- NOTE | 2018-02-16 15:50 | P.CNPUL ---
History of Present Illness Consult date: 02/16/18 Reason for consult: dyspnea, COPD, abnormal CXR/CT Chief complaint: Severe dyspnea, COPD exacerbation, spiculated nodule in the right lung History of present illness: Mr. Coello is a 67-year-old white male patient who presented to the hospital on 02/15/2018 with severe shortness of breath, patient was found in front of the hospital in severe respiratory distress. Patient reports increased cough, chest congestion, and worsening dyspnea over the course of 2 weeks, and his sputum was very dark, but denies hemoptysis. Denies any fever or chills. Denies any sick contacts. Patient has a known history of severe advanced oxygen -dependent COPD, with previously documented FEV1 of 1.14 L or 36% of predicted from 2017. Patient normally follows with [facility]. In 2016 he was noted to have a 8 mm peripheral left basilar pulmonary nodule. He was also diagnosed with pulmonary emboli at that time and was placed on anticoagulation in the form of the Xarelto, he remains on anticoagulation at this time, in the form of Eliquis 2.5 mm twice daily. In 2017 CT chest showed advanced emphysema, and a new elongated spiculated density measuring 1.7 x 0.7 x 2.4 cm in the right upper lobe. Patient was scheduled [facility], however in view of patient's poor lung function the procedure considered risky, and the patient decided not to go through with it. Patient had 2 PET scans, the results of which are unavailable to us. Patient is very frail and cachectic, and has severe exercise capacity limitation related to his poor lung function. Past medical history is positive for severe peptic ulcer disease, status post gastrectomy, COPD, past exposure to hepatitis C, anxiety, depression, past history of nicotine dependence, patient carries a [id number] smoking history. Has a history of service, 21 years in the [employer]. His maintenance inhalers include Spiriva, Symbicort, Ventolin, and albuterol nebulized treatments. Patient was last seen in the pulmonary office by Dr. 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 Chest x-ray showed chronic emphysematous changes without acute pulmonary process, and a persistent spiculated nodule in the lateral right upper lung. EKG showed sinus tachycardia rate of 110 BPM. Labs showed white count of 7.1, hemoglobin of 15.6, sodium of 135, potassium is 5.1, chloride is 90, CO2 34, BUN is 18, creatinine 0.65, CK-MB of 2.8, troponin was negative 1, proBNP of 927. Review of Systems All systems: negative Constitutional: Denies chills, Denies fever Eyes: denies blurred vision, denies pain Ears, nose, mouth and throat: Denies headache, Denies sore throat Cardiovascular: Denies chest pain, Denies shortness of breath Respiratory: Reports congestion, Reports dyspnea, Reports home oxygen, Denies cough Gastrointestinal: Denies abdominal pain, Denies diarrhea, Denies nausea, Denies vomiting Musculoskeletal: Denies myalgias Integumentary: Denies pruritus, Denies rash Neurological: Denies numbness, Denies weakness Psychiatric: Denies anxiety, Denies depression Endocrine: Denies fatigue, Denies weight change Past Medical History Past Medical History: COPD, GERD/Reflux Additional Past Medical History / Comment(s): exposure in past to Hep. C, recent admission in Sep. for COPD-went to [facility] for short time after for rehab to build up strength, using oxygen most of the time 3-4l History of Any Multi-Drug Resistant Organisms: None Reported Past Surgical History: Appendectomy Additional Past Surgical History / Comment(s): 70% OF STOMACH REMOVED R/T ULCER DISEASE, partial vagotomy. Past Anesthesia/Blood Transfusion Reactions: No Reported Reaction Past Psychological History: Anxiety, Depression Smoking Status: Former smoker Past Alcohol Use History: None Reported Past Drug Use History: None Reported - Past Family History Mother Additional Family Medical History / Comment(s): ? brain tumor Father History Unknown: Yes Additional Family Medical History / Comment(s): lymphoma Medications and Allergies Home Medications Medication Instructions Recorded Confirmed Type ALPRAZolam [Xanax] 0.25 mg PO TID PRN #20 tab 09/19/15 02/15/18 Rx Albuterol Nebulized [Ventolin 2.5 mg INHALATION RT-Q4H PRN 11/25/15 02/15/18 History Nebulized] Albuterol Sulfate [Proventil Hfa] 2 puff INHALATION RT-Q6H PRN 11/25/15 History Budesonide-Formot 160-4.5 Mcg 2 puff INHALATION RT-BID 11/25/15 02/15/18 History [Symbicort 160-4.5 Mcg Inhaler] Cyanocobalamin [Vitamin B-12] 1,000 mcg PO DAILY 11/25/15 02/15/18 History Tiotropium 18 Mcg/Puff [Spiriva] 1 cap INHALATION RT-DAILY 11/25/15 02/15/18 History HYDROcodone/APAP 10-325MG [[place] 1 tab PO Q4HR PRN 03/09/16 02/15/18 History 10-325] Apixaban [Eliquis] 2.5 mg PO BID 12/29/17 02/15/18 History Morphine Sulfate ER [Ms Contin 30 mg PO Q12HR PRN 12/29/17 02/15/18 History 30Mg] Sennosides [Senna] 8.6 mg PO DAILY 12/29/17 02/15/18 History LORazepam [Ativan] 1 mg PO Q6H PRN 02/15/18 02/15/18 History Omeprazole 20 mg PO BID 02/15/18 02/15/18 History Ranitidine HCl [Zantac] 150 mg PO BID 02/15/18 02/15/18 History Allergies Allergy/AdvReac Type Severity Reaction Status Date / Time theophylline Allergy Rash/Hives Verified 02/15/18 14:55 metaproterenol sulfate AdvReac shaking Verified 02/15/18 14:55 [From Alupent] Physical Exam Vitals: Vital Signs Temp Pulse Pulse Resp BP BP Pulse Ox 02/16/18 11:29 92 02/16/18 11:14 92 02/16/18 08:07 88 02/16/18 07:51 80 02/16/18 06:10 97.8 F 80 20 132/82 96 02/16/18 00:10 98.1 F 76 20 114/67 97 02/15/18 20:45 90 02/15/18 20:38 89 02/15/18 17:20 97.3 F L 106 H 16 125/81 100 02/15/18 16:51 97.7 F 107 H 20 117/66 99 02/15/18 15:29 110 H 02/15/18 14:58 108 H 02/15/18 14:37 24 02/15/18 14:26 108 H 02/15/18 14:12 97 F L 115 H 24 147/86 98 Intake and Output 02/15/18 02/16/18 02/16/18 22:59 06:59 14:59 Intake Total 450 100 250 Output Total 300 Balance 450 100 -50 Intake: Oral 450 100 250 Output: Urine 300 Other: Voiding Method Urinal # Voids 1 2 Weight 42.91 kg 42.91 kg GENERAL EXAM: Alert, frail, cachectic white male, appears chronically ill, patient is dyspneic with normal conversation HEAD: Normocephalic/atraumatic. EYES: Normal reaction of pupils, equal size. Conjunctiva pink, sclera white. NOSE: Clear with pink turbinates. THROAT: No erythema or exudates. NECK: No masses, no JVD, no thyroid enlargement, no adenopathy. CHEST: No chest wall deformity. Symmetrical expansion. LUNGS: Decreased air movement, prolonged expiratory phase CVS: Regular rate and rhythm, normal S1 and S2, no gallops, no murmurs, no rubs ABDOMEN: Soft, nontender. No hepatosplenomegaly, normal bowel sounds, no guarding or rigidity. EXTREMITIES: No clubbing, no edema, no cyanosis, 2+ pulses and upper and lower extremities. MUSCULOSKELETAL: Muscle strength and tone normal. SPINE: No scoliosis or deformity SKIN: No rashes CENTRAL NERVOUS SYSTEM: Alert and oriented -3. No focal deficits, tone is normal in all 4 extremities. PSYCHIATRIC: Alert and oriented -3. Appropriate affect. Intact judgment and insight. Results - Laboratory Findings CBC and BMP: 02/15/18 14:29 02/15/18 14:29 PT/INR, D-dimer PT 9.7 sec (9.0-12.0) 02/15/18 14:29 INR 1.0 (<1.2) 02/15/18 14:29 Abnormal lab findings: Abnormal Labs 02/15/18 02/15/18 02/15/18 14:29 14:29 14:29 Lymphocytes # 0.7 L Sodium 135 L Chloride 90 L Carbon Dioxide 34 H Creatinine 0.65 L Glucose 119 H POC Glucose (mg/dL) Total Creatine Kinase 50 L CK-MB (CK-2) 2.8 H* 02/15/18 02/16/18 21:18 07:16 Lymphocytes # Sodium Chloride Carbon Dioxide Creatinine Glucose POC Glucose (mg/dL) 181 H 138 H Total Creatine Kinase CK-MB (CK-2) - Diagnostic Findings Chest x-ray: report reviewed, image reviewed Additional studies: EKG reviewed Assessment and Plan Plan: Assessment: #1. Severe dyspnea secondary to acute exacerbation of chronic obstructive pulmonary disease #2. Advanced oxygen-dependent COPD, with an underlying FEV1 of 1.14 L, or 36% of predicted, consistent with GOLD stage III, as documented in 2017. #3. Spiculated elongated nodule in the right upper lobe, present since September 2016, highly suspicious for malignancy, patient had 2 PET scans at a [facility] in [place], his altered unavailable. The patient is not a surgical candidate or even a candidate for biopsy. #4. Left upper lobe 8mm nodule that has been followed since 2016 #5. Poor baseline exercise capacity related to poor lung function related to advanced COPD #6. History of pulmonary emboli, and patient remains on long-term anticoagulation with Eliquis #7. Cachexia with significant loss of total body muscle mass #8. History of severe peptic ulcer disease, status post gastrectomy and partial vagotomy #9. History of term nicotine dependence, quit in 2016, carries over 46-pack- year smoking history Plan: Continue nebulized bronchodilators, continue IV Solu-Medrol, continue Eliquis, continue Symbicort and Zithromax. We will try to obtain records from the [facility] in [place] and [place]. Patient is not a candidate for biopsy, he is not a surgical candidate, or candidate for chemotherapy view of his advanced COPD, and poor lung function. For now we will treat his COPD, no need for a repeat CT chest. We'll have the patient follow up with Dr. Pratt in the office post discharge. I performed a history & physical examination of the patient and discussed their management with my nurse practitioner, Dai Jerome. I reviewed the nurse practitioner's note and agree with the documented findings and plan of care. Lung sounds are for decreased lung sounds bilaterally, with prolongation of expiratory phase. The findings and the impression was discussed with the patient. I attest to the documentation by the nurse practitioner. Time with Patient: Greater than 30
[2018-02-16] MEDS: HYDROcodone/APAP 10-325MG 1 EACH TAB PO PRN (17:36)
[2018-02-16 17:53] LABS: Glucose,Whole Blood 97 mg/dL (75-99)
[2018-02-16 21:09] LABS: Glucose,Whole Blood 146 mg/dL (75-99)
[2018-02-17] MEDS ORDERED: methylPREDNISolone SOD SUCCI 40 MG/ML 1 ML VIAL ONE
[2018-02-17 07:33] LABS: Glucose,Whole Blood 113 mg/dL (75-99)
[2018-02-17] MEDS: methylPREDNISolone SOD SUCCI 40 MG/ML 1 ML VIAL IV SCH ×2 (08:22→10:41)
[2018-02-17] MEDS: INSULIN ASPART 100 UNIT/ML 1 ML 10 ML VIAL SQ SCH ×4 (08:23→21:26)
[2018-02-17] MEDS: PANTOPRAZOLE 40 MG TABLET PO SCH ×2 (08:23→18:33)
[2018-02-17] MEDS: SODIUM CHLORIDE 0.9% 1,000 ML IV SCH ×2 (08:24→18:41)
[2018-02-17] MEDS: APIXABAN 2.5 MG TABLET PO SCH ×2 (08:25→21:44)
[2018-02-17] MEDS: AZITHROMYCIN 500 MG TAB PO SCH (08:25)
[2018-02-17] MEDS: SYMBICORT 160-4.5 MCG INHALER INHALATION SCH (08:33)
[2018-02-17] MEDS: IPRATROPIUM-ALBUTEROL 3 ML NEB INHALATION SCH ×4 (08:33→20:49)
--- NOTE | 2018-02-17 12:12 | P.PN ---
Subjective Progress Note Date: 02/17/18 Principal diagnosis: Dyspnea, secondary to an acute exacerbation of chronic obstructive pulmonary disease, nodule in the right upper lobe and left upper lobe Mr. Coello is a 67-year-old white male patient who presented to the hospital on 02/15/2018 with severe shortness of breath, patient was found in front of the hospital in severe respiratory distress. Patient reports increased cough, chest congestion, and worsening dyspnea over the course of 2 weeks, and his sputum was very dark, but denies hemoptysis. Denies any fever or chills. Denies any sick contacts. Patient has a known history of severe advanced oxygen -dependent COPD, with previously documented FEV1 of 1.14 L or 36% of predicted from 2017. [facility] In [facility] he was noted to have a 8 mm peripheral left basilar pulmonary nodule. He was also diagnosed with pulmonary emboli at that time and was placed on anticoagulation in the form of the Xarelto, he remains on anticoagulation at this time, in the form of Eliquis 2.5 mm twice daily. In 2017 CT chest showed advanced emphysema, and a new elongated spiculated density measuring 1.7 x 0.7 x 2.4 cm in the right upper lobe. Patient was scheduled to undergo a [facility] by [facility], however in view of patient's poor lung function the procedure considered risky, and the patient decided not to go through with it. Patient had 2 PET scans, the results of which are unavailable to us. Patient is very frail and cachectic, and has severe exercise capacity limitation related to his poor lung function. Past medical history is positive for severe peptic ulcer disease, status post gastrectomy, COPD, past exposure to hepatitis C, anxiety, depression, past history of nicotine dependence, patient carries a [id number] smoking history. Has a history of service, 21 years in the [employer]. His maintenance inhalers include Spiriva, Symbicort, Ventolin, and albuterol nebulized treatments. Patient was last seen in the pulmonary office by Dr. 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 Chest x-ray showed chronic emphysematous changes without acute pulmonary process, and a persistent spiculated nodule in the lateral right upper lung. EKG showed sinus tachycardia rate of 110 BPM. Labs showed white count of 7.1, hemoglobin of 15.6, sodium of 135, potassium is 5.1, chloride is 90, CO2 34, BUN is 18, creatinine 0.65, CK-MB of 2.8, troponin was negative 1, proBNP of 927. On 02/17/2018 patient seen in follow-up on medical surgical floor. Still significantly dyspneic at rest, and even speaking. 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 He' ll very thick and yellow. Physical exam reveals decreased air entry bilaterally. Patient remains on 3 L per nasal cannula with O2 sat at 97%, he is afebrile, he is on Zithromax, nebulized bronchodilators. No new labs or chest x-rays today. Objective - Vital Signs Vital signs: Vital Signs Temp 97.6 F 02/17/18 06:20 Pulse 88 02/17/18 08:43 Resp 18 02/17/18 06:20 BP 148/84 02/17/18 06:20 Pulse Ox 97 02/17/18 06:20 Intake & Output 02/16/18 02/17/18 02/17/18 18:59 06:59 18:59 Intake Total 500 1750 Output Total 700 1400 325 Balance -200 350 -325 Weight 42.91 kg Intake: Oral 500 1750 Output: Urine 700 1400 325 Other: Voiding Method Urinal # Voids 2 - Exam GENERAL EXAM: Alert, frail, cachectic white male, appears chronically ill, patient is dyspneic with normal conversation HEAD: Normocephalic/atraumatic. EYES: Normal reaction of pupils, equal size. Conjunctiva pink, sclera white. NOSE: Clear with pink turbinates. THROAT: No erythema or exudates. NECK: No masses, no JVD, no thyroid enlargement, no adenopathy. CHEST: No chest wall deformity. Symmetrical expansion. LUNGS: Decreased air movement, prolonged expiratory phase CVS: Regular rate and rhythm, normal S1 and S2, no gallops, no murmurs, no rubs ABDOMEN: Soft, nontender. No hepatosplenomegaly, normal bowel sounds, no guarding or rigidity. EXTREMITIES: No clubbing, no edema, no cyanosis, 2+ pulses and upper and lower extremities. MUSCULOSKELETAL: Muscle strength and tone normal. SPINE: No scoliosis or deformity SKIN: No rashes CENTRAL NERVOUS SYSTEM: Alert and oriented -3. No focal deficits, tone is normal in all 4 extremities. PSYCHIATRIC: Alert and oriented -3. Appropriate affect. Intact judgment and insight. - Labs CBC & Chem 7: 02/15/18 14:29 02/15/18 14:29 Labs: Abnormal Lab Results - Last 24 Hours (Table) 02/16/18 02/16/18 02/17/18 Range/Units 12:14 20:53 07:13 POC Glucose (mg/dL) 215 H 146 H 113 H (75-99) mg/dL Assessment and Plan Plan: Assessment: #1. Severe dyspnea secondary to acute exacerbation of chronic obstructive pulmonary disease #2. Advanced oxygen-dependent COPD, with an underlying FEV1 of 1.14 L, or 36% of predicted, consistent with GOLD stage III, as documented in 2017. #3. Spiculated elongated nodule in the right upper lobe, present since September 2016, highly suspicious for malignancy, patient had 2 PET scans at a [facility] in [place], his altered unavailable. The patient is not a surgical candidate or even a candidate for biopsy. #4. Left upper lobe 8mm nodule that has been followed since 2016 #5. Poor baseline exercise capacity related to poor lung function related to advanced COPD #6. History of pulmonary emboli, and patient remains on long-term anticoagulation with Eliquis #7. Cachexia with significant loss of total body muscle mass #8. History of severe peptic ulcer disease, status post gastrectomy and partial vagotomy #9. History of term nicotine dependence, quit in 2015, carries over 46-pack- year smoking history Plan: Continue current medical treatment, patient is still significantly short of breath at rest and with speaking, very limited in terms of activity tolerance. Continue empiric antibiotics, we will increase the IV Solu-Medrol back to 60 mg every 6 hours, continue with nebulized bronchodilators. First is Symbicort 2 Pulmicort and Perforomist. Continue anticoagulation. Not ready for discharge. I performed a history & physical examination of the patient and discussed their management with my nurse practitioner, Dai Jerome. I reviewed the nurse practitioner's note and agree with the documented findings and plan of care. Lung sounds are for decreased lung sounds bilaterally, with prolongation of expiratory phase. The findings and the impression was discussed with the patient. I attest to the documentation by the nurse practitioner. Time with Patient: Less than 30
[2018-02-17 12:21] LABS: Glucose,Whole Blood 102 mg/dL (75-99)
[2018-02-17 17:41] LABS: Glucose,Whole Blood 97 mg/dL (75-99)
[2018-02-17] MEDS: methylPREDNISolone SOD SUCCI 125 MG/2 ML VIAL IV SCH (18:36)
--- NOTE | 2018-02-17 20:01 | P.PN ---
Subjective Progress Note Date: 02/16/18 Progress Note being Dictated for Dr. Bella This is a 67-year-old the male came in with compensative shortness of breath has been going on for be progressively worsening patient has advanced COPD uses about 3 L of oxygen at rest and 4 L upon amble and. Patient is unable to even walk a few feet without getting short of breath patient is comparing of cough without any sputum production chest x-ray did not show any pneumonic process. Patient was started on IV steroids, his demisewas subsequently admitted. Patient with anti-correlation not sure why he is on anti-correlation as to have to check with the patient. Patient denied any fever chills. Patient quit smoking 2 months ago. Review of Systems REVIEW OF SYSTEMS: CONSTITUTIONAL: No fever, no malaise, no fatigue. HEENT: No recent visual problems or hearing problems. Denied any sore throat. CARDIOVASCULAR: No chest pain, orthopnea, PND, no palpitations, no syncope. PULMONARY: As mentioned in HPI GASTROINTESTINAL: No diarrhea, no nausea, no vomiting, no abdominal pain. Normoactive bowel sounds. NEUROLOGICAL: No headaches, no weakness, no numbness. HEMATOLOGICAL: Denies any bleeding or petechiae. GENITOURINARY: Denies any burning micturition, frequency, or urgency. MUSCULOSKELETAL/RHEUMATOLOGICAL: Denies any joint pain, swelling, or any muscle pain. ENDOCRINE: Denies any polyuria or polydipsia. 02/16/18 maintained on nebulized bronchodilators, steroids, Zithromax with significant dyspnea at rest, in a patient with advanced COPD. evaluated by pulmonary with recommendations noted. Chest x-ray reporting persistent bilateral right upper lung nodule. [facility] Reports productive cough with thick yellow sputum production. Afebrile. Objective - Vital Signs Vital signs: Vital Signs Temp 98.7 F 02/16/18 15:00 Pulse 90 02/16/18 20:09 Resp 16 02/16/18 15:55 BP 89/58 02/16/18 15:00 Pulse Ox 97 02/16/18 15:00 Intake & Output 02/16/18 02/16/18 02/17/18 06:59 18:59 06:59 Intake Total 300 500 550 Output Total 700 400 Balance 300 -200 150 Weight 42.91 kg Intake: Oral 300 500 550 Output: Urine 700 400 Other: Voiding Method Urinal # Voids 2 2 - Exam GENERAL: The patient is alert and oriented x3, not in any acute distress. Cachetic, increased respiratory effort. HEENT: Pupils are round and equally reacting to light. EOMI. No scleral icterus. No conjunctival pallor. Normocephalic, atraumatic. CARDIOVASCULAR: S1 and S2 present. No murmurs, rubs, or gallops. PULMONARY: Diminished air entry into bilateral lung weir no wheezing was appreciated no crackles were appreciated, ABDOMEN: Soft, nontender, nondistended, normoactive bowel sounds. No palpable organomegaly. MUSCULOSKELETAL: No joint swelling or deformity. EXTREMITIES: No cyanosis, clubbing, or pedal edema. NEUROLOGICAL: Gross neurological examination did not reveal any focal deficits. SKIN: No rashes. - Labs CBC & Chem 7: 02/15/18 14:29 02/15/18 14:29 Labs: Abnormal Lab Results - Last 24 Hours (Table) 02/16/18 02/16/18 02/16/18 Range/Units 07:16 12:14 20:53 POC Glucose (mg/dL) 138 H 215 H 146 H (75-99) mg/dL Assessment and Plan Assessment: -Acute on chronic hypercapnic respiratory failure secondary to acute COPD exacerbation. Patient has advanced COPD. -Tracheobronchitis -Anxiety and depression -Gastroesophageal reflux disease -Chronic weight loss unintentional, further workup as an outpatient starting with regular screening procedures and CAT scan of the chest considering his smoking history -Moderate protein calorie malnutrition, BMI 14 -Persistent Right upper lobe nodule, suspicious for malignancy. [facility] being [facility] Plan: Continue current medication regime ,monitoring and symptomatic treatment. Maintain nebulized bronchodilators, steroids, Zithromax. Anticoagulation with Eliquis. Persistent suspicious right lung nodule-follow closely with pulmonary. Prognosis guarded given multiple complex medical issues. The impression and plan of care has been dictated as directed. : I performed a history and examination of this patient, discussed the same with the dictator. I agree with the dictator's note ,documented as a scribe. Any additional findings or plans will be noted.
--- NOTE | 2018-02-17 20:04 | P.PN ---
Subjective Progress Note Date: 02/17/18 Progress Note being Dictated for Dr. Bella This is a 67-year-old the male came in with compensative shortness of breath has been going on for be progressively worsening patient has advanced COPD uses about 3 L of oxygen at rest and 4 L upon amble and. Patient is unable to even walk a few feet without getting short of breath patient is comparing of cough without any sputum production chest x-ray did not show any pneumonic process. Patient was started on IV steroids, his demisewas subsequently admitted. Patient with anti-correlation not sure why he is on anti-correlation as to have to check with the patient. Patient denied any fever chills. Patient quit smoking 2 months ago. Review of Systems REVIEW OF SYSTEMS: CONSTITUTIONAL: No fever, no malaise, no fatigue. HEENT: No recent visual problems or hearing problems. Denied any sore throat. CARDIOVASCULAR: No chest pain, orthopnea, PND, no palpitations, no syncope. PULMONARY: As mentioned in HPI GASTROINTESTINAL: No diarrhea, no nausea, no vomiting, no abdominal pain. Normoactive bowel sounds. NEUROLOGICAL: No headaches, no weakness, no numbness. HEMATOLOGICAL: Denies any bleeding or petechiae. GENITOURINARY: Denies any burning micturition, frequency, or urgency. MUSCULOSKELETAL/RHEUMATOLOGICAL: Denies any joint pain, swelling, or any muscle pain. ENDOCRINE: Denies any polyuria or polydipsia. 02/16/18 maintained on nebulized bronchodilators, steroids, Zithromax with significant dyspnea at rest, in a patient with advanced COPD. evaluated by pulmonary with recommendations noted. Chest x-ray reporting persistent bilateral right upper lung nodule. [facility] Reports productive cough with thick yellow sputum production. Afebrile. 02/17/2018 no overnight events. Maintaining O2 sats in the high 90s on 3 L nasal cannula. Dyspnea unchanged. Steroids increased. Objective - Vital Signs Vital signs: Vital Signs Temp 97.8 F 02/17/18 15:00 Pulse 80 02/17/18 17:14 Resp 20 02/17/18 15:00 BP 117/66 02/17/18 15:00 Pulse Ox 99 02/17/18 15:00 Intake & Output 02/17/18 02/17/18 02/18/18 06:59 18:59 06:59 Intake Total 1750 Output Total 1400 675 Balance 350 -675 Intake: Oral 1750 Output: Urine 1400 675 Other: # Voids 1 # Bowel Movements 1 - Exam GENERAL: The patient is alert and oriented x3, not in any acute distress. Cachetic, increased respiratory effort. HEENT: Pupils are round and equally reacting to light. EOMI. No scleral icterus. No conjunctival pallor. Normocephalic, atraumatic. CARDIOVASCULAR: S1 and S2 present. No murmurs, rubs, or gallops. PULMONARY: Diminished air entry into bilateral lung weir no wheezing was appreciated no crackles were appreciated, ABDOMEN: Soft, nontender, nondistended, normoactive bowel sounds. No palpable organomegaly. MUSCULOSKELETAL: No joint swelling or deformity. EXTREMITIES: No cyanosis, clubbing, or pedal edema. NEUROLOGICAL: Gross neurological examination did not reveal any focal deficits. SKIN: No rashes. - Labs CBC & Chem 7: 02/15/18 14:29 02/15/18 14:29 Labs: Abnormal Lab Results - Last 24 Hours (Table) 02/16/18 02/17/18 02/17/18 Range/Units 20:53 07:13 12:18 POC Glucose (mg/dL) 146 H 113 H 102 H (75-99) mg/dL Assessment and Plan Assessment: -Acute on chronic hypercapnic respiratory failure secondary to acute COPD exacerbation. Patient has advanced COPD. -Tracheobronchitis -Anxiety and depression -Gastroesophageal reflux disease -Chronic weight loss unintentional, further workup as an outpatient starting with regular screening procedures and CAT scan of the chest considering his smoking history -Moderate protein calorie malnutrition, BMI 14 -Persistent Right upper lobe nodule, suspicious for malignancy. [facility] Plan: Continue current medication regime ,monitoring and symptomatic treatment. Maintain nebulized bronchodilators, steroids, Zithromax. Follow closely with pulmonary. Prognosis guarded given multiple complex medical issues. The impression and plan of care has been dictated as directed. : I performed a history and examination of this patient, discussed the same with the dictator. I agree with the dictator's note ,documented as a scribe. Any additional findings or plans will be noted.
[2018-02-17] MEDS: BUDESONIDE 1 MG/2 ML NEBU INHALATION SCH (20:49)
[2018-02-17] MEDS: FORMOTEROL FUMARATE 20 MCG/2 ML NEBU INHALATION SCH (20:49)
[2018-02-17 21:17] LABS: Glucose,Whole Blood 127 mg/dL (75-99)
[2018-02-18] MEDS: methylPREDNISolone SOD SUCCI 125 MG/2 ML VIAL IV SCH ×4 (00:26→18:03)
[2018-02-18] MEDS: SODIUM CHLORIDE 0.9% 1,000 ML IV SCH ×2 (05:29→09:39)
[2018-02-18 07:19] LABS: Glucose,Whole Blood 102 mg/dL (75-99)
[2018-02-18] MEDS: BUDESONIDE 1 MG/2 ML NEBU INHALATION SCH ×2 (08:14→19:36)
[2018-02-18] MEDS: FORMOTEROL FUMARATE 20 MCG/2 ML NEBU INHALATION SCH ×2 (08:14→19:36)
[2018-02-18] MEDS: IPRATROPIUM-ALBUTEROL 3 ML NEB INHALATION SCH ×4 (08:14→19:36)
[2018-02-18 08:26] LABS: Basophils % (A) 0 %; Eosinophils % (A) 0 %; HCT 39.1 % (39.0-53.0); HGB 12.7 gm/dL (13.0-17.5); Lymphocytes # (A) 0.3 k/uL (1.0-4.8); Lymphocytes % (A) 4 %; MCH 29.6 pg (25.0-35.0); MCHC 32.5 g/dL (31.0-37.0); MCV 91.2 fL (80.0-100.0); Mean Platelet Volume 6.5; Monocytes # (A) 0.4 k/uL (0-1.0); Monocytes % (A) 6 %; Neutrophils # (A) 6.9 k/uL (1.3-7.7); Neutrophils % (A) 89 %; Platelet Count 297 k/uL (150-450); RBC 4.29 m/uL (4.30-5.90); RDW 13.6 % (11.5-15.5); WBC 7.8 k/uL (3.8-10.6)
[2018-02-18] MEDS: INSULIN ASPART 100 UNIT/ML 1 ML 10 ML VIAL SQ SCH ×4 (08:34→21:18)
[2018-02-18 08:42] LABS: Anion Gap 4 mmol/L; Blood Urea Nitrogen 13 mg/dL (9-20); Calcium 8.2 mg/dL (8.4-10.2); Carbon Dioxide 32 mmol/L (22-30); Chloride 99 mmol/L (98-107); Glucose 112 mg/dL (74-99); Potassium 4.8 mmol/L (3.5-5.1); Sodium 135 mmol/L (137-145)
[2018-02-18] MEDS: AZITHROMYCIN 500 MG TAB PO SCH (09:39)
[2018-02-18] MEDS: MORPHINE SULFATE ER 30 MG TABLET PO PRN (09:39)
[2018-02-18] MEDS: APIXABAN 2.5 MG TABLET PO SCH ×2 (09:40→22:13)
[2018-02-18] MEDS: PANTOPRAZOLE 40 MG TABLET PO SCH ×2 (09:40→18:03)
[2018-02-18 12:32] LABS: Glucose,Whole Blood 106 mg/dL (75-99)
--- NOTE | 2018-02-18 12:34 | P.PN ---
Subjective Patient with advanced COPD admitted for COPD exacerbation no significant improvement compared to yesterday patient's saturations did improve. Patient is not coughing up as much. Possibly of discharge hopefully on Tuesday. Constitutional: Denied any fatigue denied any fever. Cardio vascular: denied any chest pain, palpitations Gastrointestinal denied any nausea vomiting Pulmonary: As mentioned in HPI Neurologic denied any new focal deficits Objective - Vital Signs Vital signs: Vital Signs Temp 98.1 F 02/18/18 06:38 Pulse 88 02/18/18 11:56 Resp 18 02/18/18 09:43 BP 134/80 02/18/18 06:38 Pulse Ox 97 02/18/18 08:18 Intake & Output 02/17/18 02/18/18 02/18/18 18:59 06:59 18:59 Intake Total 1675 300 Output Total 675 1800 500 Balance -675 -125 -200 Weight 42.91 kg Intake: Oral 1675 300 Output: Urine 675 1800 500 Other: Voiding Method Urinal # Voids 1 # Bowel Movements 1 - Exam PHYSICAL EXAMINATION: GENERAL: The patient is alert and oriented x3, not in any acute distress. Well developed, well nourished. HEENT: Pupils are round and equally reacting to light. EOMI. No scleral icterus. No conjunctival pallor. Normocephalic, atraumatic. No pharyngeal erythema. No thyromegaly. CARDIOVASCULAR: S1 and S2 present. No murmurs, rubs, or gallops. PULMONARY: I did not appreciate any air movement into bilateral lung weir ABDOMEN: Soft, nontender, nondistended, normoactive bowel sounds. No palpable organomegaly. MUSCULOSKELETAL: No joint swelling or deformity. EXTREMITIES: No cyanosis, clubbing, or pedal edema. NEUROLOGICAL: Gross neurological examination did not reveal any focal deficits. SKIN: No rashes. - Labs CBC & Chem 7: 02/18/18 07:55 02/18/18 07:55 Labs: Abnormal Lab Results - Last 24 Hours (Table) 02/17/18 02/18/18 02/18/18 Range/Units 21:07 07:16 07:55 RBC 4.29 L (4.30-5.90) m/uL Hgb 12.7 L (13.0-17.5) gm/dL Lymphocytes # 0.3 L (1.0-4.8) k/uL Sodium (137-145) mmol/L Carbon Dioxide (22-30) mmol/L Creatinine (0.66-1.25) mg/dL Glucose (74-99) mg/dL POC Glucose (mg/dL) 127 H 102 H (75-99) mg/dL Calcium (8.4-10.2) mg/dL 02/18/18 Range/Units 07:55 RBC (4.30-5.90) m/uL Hgb (13.0-17.5) gm/dL Lymphocytes # (1.0-4.8) k/uL Sodium 135 L (137-145) mmol/L Carbon Dioxide 32 H (22-30) mmol/L Creatinine 0.56 L (0.66-1.25) mg/dL Glucose 112 H (74-99) mg/dL POC Glucose (mg/dL) (75-99) mg/dL Calcium 8.2 L (8.4-10.2) mg/dL Assessment and Plan Plan: -Acute on chronic hypercapnic respiratory failure secondary to COPD exacerbation : Patient will be can you done systemic strides in nature treatments. Consult pulmonary. Patient has advanced COPD -Tracheobronchitis -Anxiety and depression -Gastroesophageal reflux disease -Chronic weight loss unintentional, had a CAT scan of the chest which showed nodule in the right upper lobe suspicious for malignancy records from [facility] are being obtained -Moderate protein calorie malnutrition with BMI of 14
--- NOTE | 2018-02-18 14:29 | P.PN ---
Subjective Progress Note Date: 02/18/18 Principal diagnosis: Acute exacerbation of chronic obstructive pulmonary disease. Pulmonary nodules in the right and left upper lobes. Mr. Coello is a 67-year-old white male patient who presented to the hospital on 02/15/2018 with severe shortness of breath, patient was found in front of the hospital in severe respiratory distress. Patient reports increased cough, chest congestion, and worsening dyspnea over the course of 2 weeks, and his sputum was very dark, but denies hemoptysis. Denies any fever or chills. Denies any sick contacts. Patient has a known history of severe advanced oxygen -dependent COPD, with previously documented FEV1 of 1.14 L or 36% of predicted from 2017. [facility] 2016 he was noted to have a 8 mm peripheral left basilar pulmonary nodule. He was also diagnosed with pulmonary emboli at that time and was placed on anticoagulation in the form of the Xarelto, he remains on anticoagulation at this time, in the form of Eliquis 2.5 mm twice daily. In 2017 CT chest showed advanced emphysema, and a new elongated spiculated density measuring 1.7 x 0.7 x 2.4 cm in the right upper lobe. Patient was scheduled to undergo a biopsy by a practice lead out of the [facility] in 2017, however in view of patient's poor lung function the procedure considered risky, and the patient decided not to go through with it. Patient had 2 PET scans, the results of which are unavailable to us. Patient is very frail and cachectic, and has severe exercise capacity limitation related to his poor lung function. 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 Has a history of service, 21 years in the [employer]. His maintenance inhalers include Spiriva, Symbicort, Ventolin, and albuterol nebulized treatments. Patient was last seen in the pulmonary office by Dr. Pratt in 2017, after that patient followed with his practice lead from the [facility]. Chest x-ray showed chronic emphysematous changes without acute pulmonary process, and a persistent spiculated nodule in the lateral right upper lung. EKG showed sinus tachycardia rate of 110 BPM. Labs showed white count of 7.1, hemoglobin of 15.6, sodium of 135, potassium is 5.1, chloride is 90, CO2 34, BUN is 18, creatinine 0.65, CK-MB of 2.8, troponin was negative 1, proBNP of 927. On 02/17/2018 patient seen in follow-up on medical surgical floor. Still significantly dyspneic at rest, and even speaking. 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 He' ll very thick and yellow. Physical exam reveals decreased air entry bilaterally. Patient remains on 3 L per nasal cannula with O2 sat at 97%, he is afebrile, he is on Zithromax, nebulized bronchodilators. No new labs or chest x-rays today. The patient is seen today 02/18/2018 in follow-up on the regular medical floor. He is in mild respiratory distress. He states he is breathing better today as compared to yesterday still not quite back to his baseline. Still somewhat bronchospastic and wheezy. He is currently afebrile. Hemodynamically stable. Maintain O2 saturations in the upper 90s on 3 L/m per nasal cannula. White count 7.8. Hemoglobin 12.7. Creatinine 0.56. Objective - Vital Signs Vital signs: Vital Signs Temp 98.1 F 02/18/18 06:38 Pulse 88 02/18/18 11:56 Resp 18 02/18/18 09:43 BP 134/80 02/18/18 06:38 Pulse Ox 97 02/18/18 08:18 Intake & Output 02/17/18 02/18/18 02/18/18 18:59 06:59 18:59 Intake Total 1675 600 Output Total 675 1800 500 Balance -675 -125 100 Weight 42.91 kg Intake: Oral 1675 600 Output: Urine 675 1800 500 Other: Voiding Method Urinal # Voids 1 # Bowel Movements 1 - Exam GENERAL EXAM: Alert, frail, cachectic white male, appears chronically ill, patient is dyspneic with minimal exertion HEAD: Normocephalic/atraumatic. EYES: Normal reaction of pupils, equal size. Conjunctiva pink, sclera white. NOSE: Clear with pink turbinates. THROAT: No erythema or exudates. NECK: No masses, no JVD, no thyroid enlargement, no adenopathy. CHEST: No chest wall deformity. Symmetrical expansion. LUNGS: Decreased air movement, prolonged expiratory phase CVS: Regular rate and rhythm, normal S1 and S2, no gallops, no murmurs, no rubs ABDOMEN: Soft, nontender. No hepatosplenomegaly, normal bowel sounds, no guarding or rigidity. EXTREMITIES: No clubbing, no edema, no cyanosis, 2+ pulses and upper and lower extremities. MUSCULOSKELETAL: Muscle strength and tone normal. SPINE: No scoliosis or deformity SKIN: No rashes CENTRAL NERVOUS SYSTEM: Alert and oriented -3. No focal deficits, tone is normal in all 4 extremities. PSYCHIATRIC: Alert and oriented -3. Appropriate affect. Intact judgment and insight. - Labs CBC & Chem 7: 02/18/18 07:55 02/18/18 07:55 Labs: Abnormal Lab Results - Last 24 Hours (Table) 02/17/18 02/18/18 02/18/18 Range/Units 21:07 07:16 07:55 RBC 4.29 L (4.30-5.90) m/uL Hgb 12.7 L (13.0-17.5) gm/dL Lymphocytes # 0.3 L (1.0-4.8) k/uL Sodium (137-145) mmol/L Carbon Dioxide (22-30) mmol/L Creatinine (0.66-1.25) mg/dL Glucose (74-99) mg/dL POC Glucose (mg/dL) 127 H 102 H (75-99) mg/dL Calcium (8.4-10.2) mg/dL 02/18/18 02/18/18 Range/Units 07:55 12:30 RBC (4.30-5.90) m/uL Hgb (13.0-17.5) gm/dL Lymphocytes # (1.0-4.8) k/uL Sodium 135 L (137-145) mmol/L Carbon Dioxide 32 H (22-30) mmol/L Creatinine 0.56 L (0.66-1.25) mg/dL Glucose 112 H (74-99) mg/dL POC Glucose (mg/dL) 106 H (75-99) mg/dL Calcium 8.2 L (8.4-10.2) mg/dL Assessment and Plan Assessment: Assessment: #1. Severe dyspnea secondary to acute exacerbation of chronic obstructive pulmonary disease #2. Advanced oxygen-dependent COPD, with an underlying FEV1 of 1.14 L, or 36% of predicted, consistent with GOLD stage III, as documented in 2017. #3. Spiculated elongated nodule in the right upper lobe, present since September 2016, highly suspicious for malignancy, patient [facility] [place], his altered unavailable. The patient is not a surgical candidate or even a candidate for biopsy. #4. Left upper lobe 8mm nodule that has been followed since 2016 #5. Poor baseline exercise capacity related to poor lung function related to advanced COPD #6. History of pulmonary emboli, and patient remains on long-term anticoagulation with Eliquis #7. Cachexia with significant loss of total body muscle mass #8. History of severe peptic ulcer disease, status post gastrectomy and partial vagotomy #9. History of term nicotine dependence, quit in 2016, carries over 46-pack- year smoking history Plan: The patient was seen and evaluated by Dr. Richardson. He has been slow to progress. We'll continue with his current treatment plan for now. Increase his activity as tolerated. We will continue to follow make further recommendations based on his clinical status. I, the cosigning physician, performed a history & physical examination of the patient. Lungs sounds with bilateral end expiratory wheeze. Diminished. Maintaining good O2 saturations in the 90s on 3 L/m per nasal cannula. I discussed the assessment and plan of care with my nurse practitioner, Chey Madera. I attest to the above note as dictated by her.
[2018-02-18 17:15] LABS: Glucose,Whole Blood 191 mg/dL (75-99)
[2018-02-18] MEDS: HYDROcodone/APAP 10-325MG 1 EACH TAB PO PRN (18:04)
[2018-02-18 21:17] LABS: Glucose,Whole Blood 116 mg/dL (75-99)
[2018-02-19] MEDS: methylPREDNISolone SOD SUCCI 125 MG/2 ML VIAL IV SCH ×5 (00:04→23:49)
[2018-02-19 07:27] LABS: Glucose,Whole Blood 101 mg/dL (75-99)
[2018-02-19] MEDS: INSULIN ASPART 100 UNIT/ML 1 ML 10 ML VIAL SQ SCH ×4 (07:31→21:17)
[2018-02-19] MEDS: APIXABAN 2.5 MG TABLET PO SCH ×2 (07:32→21:17)
[2018-02-19] MEDS: PANTOPRAZOLE 40 MG TABLET PO SCH ×2 (07:32→18:13)
[2018-02-19] MEDS: AZITHROMYCIN 500 MG TAB PO SCH (07:32)
[2018-02-19] MEDS: FORMOTEROL FUMARATE 20 MCG/2 ML NEBU INHALATION SCH ×2 (08:35→19:16)
[2018-02-19] MEDS: BUDESONIDE 1 MG/2 ML NEBU INHALATION SCH ×2 (08:35→19:16)
[2018-02-19] MEDS: IPRATROPIUM-ALBUTEROL 3 ML NEB INHALATION SCH ×4 (08:35→19:16)
--- NOTE | 2018-02-19 11:57 | P.PN ---
Subjective Patient with advanced COPD admitted for COPD exacerbation no significant improvement compared to yesterday patient's saturations did improve. Patient is not coughing up as much. Possibly of discharge hopefully on Tuesday. 02/19/2018 Patient symptomatically feels bit better still no air movement in the lung. No overnight events. Patient will be discharged once cleared by pulmonology. Constitutional: Denied any fatigue denied any fever. Cardio vascular: denied any chest pain, palpitations Gastrointestinal denied any nausea vomiting Pulmonary: As mentioned in HPI Neurologic denied any new focal deficits Objective - Vital Signs Vital signs: Vital Signs Temp 97.6 F 02/19/18 07:00 Pulse 88 02/19/18 09:01 Resp 16 02/19/18 07:00 BP 124/57 02/19/18 07:00 Pulse Ox 98 02/19/18 08:38 Intake & Output 02/18/18 02/19/18 02/19/18 18:59 06:59 18:59 Intake Total 850 440 Output Total 1500 500 Balance -650 -500 440 Weight 42.91 kg 42.91 kg Intake: Oral 850 440 Output: Urine 1500 500 Other: Voiding Method Urinal Urinal # Voids 1 2 - Exam PHYSICAL EXAMINATION: GENERAL: The patient is alert and oriented x3, not in any acute distress. Well developed, well nourished. HEENT: Pupils are round and equally reacting to light. EOMI. No scleral icterus. No conjunctival pallor. Normocephalic, atraumatic. No pharyngeal erythema. No thyromegaly. CARDIOVASCULAR: S1 and S2 present. No murmurs, rubs, or gallops. PULMONARY: I did not appreciate any air movement into bilateral lung weir ABDOMEN: Soft, nontender, nondistended, normoactive bowel sounds. No palpable organomegaly. MUSCULOSKELETAL: No joint swelling or deformity. EXTREMITIES: No cyanosis, clubbing, or pedal edema. NEUROLOGICAL: Gross neurological examination did not reveal any focal deficits. SKIN: No rashes. - Labs CBC & Chem 7: 02/18/18 07:55 02/18/18 07:55 Labs: Abnormal Lab Results - Last 24 Hours (Table) 02/18/18 02/18/18 02/18/18 Range/Units 12:30 17:13 21:11 POC Glucose (mg/dL) 106 H 191 H 116 H (75-99) mg/dL 02/19/18 Range/Units 07:09 POC Glucose (mg/dL) 101 H (75-99) mg/dL Assessment and Plan Plan: -Acute on chronic hypercapnic respiratory failure secondary to COPD exacerbation : Patient will be can you done systemic strides in nature treatments. Urinary following the patient. -Tracheobronchitis -Anxiety and depression -Gastroesophageal reflux disease -Chronic weight loss unintentional, had a CAT scan of the chest which showed nodule in the right upper lobe suspicious for malignancy records from [facility] are being obtained -Moderate protein calorie malnutrition with BMI of 14
[2018-02-19 12:11] LABS: Glucose,Whole Blood 190 mg/dL (75-99)
--- NOTE | 2018-02-19 14:19 | P.PN ---
Subjective Progress Note Date: 02/19/18 Principal diagnosis: Acute hypoxic respiratory failure secondary to acute COPD exacerbation. Mr. Coello is a 67-year-old white male patient who presented to the hospital on 02/15/2018 with severe shortness of breath, patient was found in front of the hospital in severe respiratory distress. Patient reports increased cough, chest congestion, and worsening dyspnea over the course of 2 weeks, and his sputum was very dark, but denies hemoptysis. Denies any fever or chills. Denies any sick contacts. Patient has a known history of severe advanced oxygen -dependent COPD, with previously documented FEV1 of 1.14 L or 36% of predicted from 2017. Patient normally follows with the [facility]. In 2016 he was noted to have a 8 mm peripheral left basilar pulmonary nodule. He was also diagnosed with pulmonary emboli at that time and was placed on anticoagulation in the form of the Xarelto, he remains on anticoagulation at this time, in the form of Eliquis 2.5 mm twice daily. In 2017 CT chest showed advanced emphysema, and a new elongated spiculated density measuring 1.7 x 0.7 x 2.4 cm in the right upper lobe. Patient was scheduled to undergo a biopsy by a personalized living manager nurse out of the [facility] in 2017, however in view of patient's poor lung function the procedure considered risky, and the patient decided not to go through with it. Patient had 2 PET scans, the results of which are unavailable to us. Patient is very frail and cachectic, and has severe exercise capacity limitation related to his poor lung function. Past medical history is positive for severe peptic ulcer disease, status post gastrectomy, COPD, past exposure to hepatitis C, anxiety, depression, past history of nicotine dependence, patient carries a [id number] smoking history. Has a history of service, 21 years in the [employer]. His maintenance inhalers include Spiriva, Symbicort, Ventolin, and albuterol nebulized treatments. Patient was last seen in the pulmonary office by Dr. Pratt in 2017, after that patient followed with his personalized living manager nurse from the [facility]. Chest x-ray showed chronic emphysematous changes without acute pulmonary process, and a persistent spiculated nodule in the lateral right upper lung. EKG showed sinus tachycardia rate of 110 BPM. Labs showed white count of 7.1, hemoglobin of 15.6, sodium of 135, potassium is 5.1, chloride is 90, CO2 34, BUN is 18, creatinine 0.65, CK-MB of 2.8, troponin was negative 1, proBNP of 927. On 02/17/2018 patient seen in follow-up on medical surgical floor. Still significantly dyspneic at rest, and even speaking. He states his breathing has not improved, although his sputum appears to be can cutter than on admission. He' ll very thick and yellow. Physical exam reveals decreased air entry bilaterally. Patient remains on 3 L per nasal cannula with O2 sat at 97%, he is afebrile, he is on Zithromax, nebulized bronchodilators. No new labs or chest x-rays today. The patient is seen today 02/18/2018 in follow-up on the regular medical floor. He is in mild respiratory distress. He states he is breathing better today as compared to yesterday still not quite back to his baseline. Still somewhat bronchospastic and wheezy. He is currently afebrile. Hemodynamically stable. Maintain O2 saturations in the upper 90s on 3 L/m per nasal cannula. White count 7.8. Hemoglobin 12.7. Creatinine 0.56. Reevaluated today on 02/19/2018, patient continues to have shortness of breath with any activity, some cough which is productive with slightly yellow phlegm, no fever no chills no hemoptysis no chest pain. Patient is maintaining O2 sats in the 90s on 3 L nasal cannula. All his labs were reviewed including basic metabolic profile and CBC. They seem to be relatively unremarkable. Objective - Vital Signs Vital signs: Vital Signs Temp 97.6 F 02/19/18 07:00 Pulse 92 02/19/18 12:22 Resp 16 02/19/18 07:00 BP 124/57 02/19/18 07:00 Pulse Ox 98 02/19/18 08:38 Intake & Output 02/18/18 02/19/18 02/19/18 18:59 06:59 18:59 Intake Total 850 440 Output Total 1500 500 Balance -650 -500 440 Weight 42.91 kg 42.91 kg Intake: Oral 850 440 Output: Urine 1500 500 Other: Voiding Method Urinal Urinal # Voids 1 2 - Exam GENERAL EXAM: Alert, frail, cachectic white male, appears chronically ill, patient is dyspneic with minimal exertion HEAD: Normocephalic/atraumatic. EYES: Normal reaction of pupils, equal size. Conjunctiva pink, sclera white. NOSE: Clear with pink turbinates. THROAT: No erythema or exudates. NECK: No masses, no JVD, no thyroid enlargement, no adenopathy. CHEST: No chest wall deformity. Symmetrical expansion. LUNGS: Decreased air movement, prolonged expiratory phase CVS: Regular rate and rhythm, normal S1 and S2, no gallops, no murmurs, no rubs ABDOMEN: Soft, nontender. No hepatosplenomegaly, normal bowel sounds, no guarding or rigidity. EXTREMITIES: No clubbing, no edema, no cyanosis, 2+ pulses and upper and lower extremities. MUSCULOSKELETAL: Muscle strength and tone normal. SPINE: No scoliosis or deformity SKIN: No rashes CENTRAL NERVOUS SYSTEM: Alert and oriented -3. No focal deficits, tone is normal in all 4 extremities. PSYCHIATRIC: Alert and oriented -3. Appropriate affect. Intact judgment and insight. - Labs CBC & Chem 7: 02/18/18 07:55 02/18/18 07:55 Labs: Abnormal Lab Results - Last 24 Hours (Table) 02/18/18 02/18/18 02/19/18 Range/Units 17:13 21:11 07:09 POC Glucose (mg/dL) 191 H 116 H 101 H (75-99) mg/dL 02/19/18 Range/Units 12:05 POC Glucose (mg/dL) 190 H (75-99) mg/dL Assessment and Plan Assessment: #1. Severe dyspnea secondary to acute exacerbation of chronic obstructive pulmonary disease #2. Acute on chronic hypoxic respiratory failure secondary to Advanced oxygen- dependent COPD, with an underlying FEV1 of 1.14 L, or 36% of predicted, consistent with GOLD stage III, as documented in 2017. #3. Spiculated elongated nodule in the right upper lobe, present since September 2016, highly suspicious for malignancy, patient had 2 PET scans at a [facility] in [place], his altered unavailable. The patient is not a surgical candidate or even a candidate for biopsy. #4. Left upper lobe 8mm nodule that has been followed since 2016 #5. Poor baseline exercise capacity related to poor lung function related to advanced COPD #6. History of pulmonary emboli, and patient remains on long-term anticoagulation with Eliquis #7. Cachexia with significant loss of total body muscle mass #8. History of severe peptic ulcer disease, status post gastrectomy and partial vagotomy #9. History of term nicotine dependence, quit in 2016, carries over 46-pack- year smoking history Recommendation: Continue present course of bronchodilators, antibiotics, most likely the patient could be cleared for discharge home tomorrow, and follow-up with Dr. Pratt on outpatient basis in the next couple of weeks. He should have follow-up regarding his spiculated nodule and for follow-up on his underlying severe COPD. Time with Patient: Less than 30
[2018-02-19] MEDS: HYDROcodone/APAP 10-325MG 1 EACH TAB PO PRN (16:26)
[2018-02-19 17:34] LABS: Glucose,Whole Blood 92 mg/dL (75-99)
[2018-02-19 21:01] LABS: Glucose,Whole Blood 112 mg/dL (75-99)
[2018-02-19] MEDS: MORPHINE SULFATE ER 30 MG TABLET PO PRN (21:20)
[2018-02-20] MEDS: methylPREDNISolone SOD SUCCI 125 MG/2 ML VIAL IV SCH ×2 (06:20→13:39)
[2018-02-20 07:03] VITALS: BP 141/75; RESP 18; TEMP 97.4
[2018-02-20] MEDS: FORMOTEROL FUMARATE 20 MCG/2 ML NEBU INHALATION SCH (07:36)
[2018-02-20] MEDS: BUDESONIDE 1 MG/2 ML NEBU INHALATION SCH (07:36)
[2018-02-20] MEDS: IPRATROPIUM-ALBUTEROL 3 ML NEB INHALATION SCH ×3 (07:36→15:38)
[2018-02-20 07:39] LABS: Glucose,Whole Blood 101 mg/dL (75-99)
[2018-02-20] MEDS: INSULIN ASPART 100 UNIT/ML 1 ML 10 ML VIAL SQ SCH ×2 (08:39→13:39)
[2018-02-20] MEDS: PANTOPRAZOLE 40 MG TABLET PO SCH (10:02)
[2018-02-20] MEDS: AZITHROMYCIN 500 MG TAB PO SCH (10:02)
[2018-02-20] MEDS: APIXABAN 2.5 MG TABLET PO SCH (10:03)
--- NOTE | 2018-02-20 11:26 | P.PN ---
Subjective Progress Note Date: 02/20/18 Principal diagnosis: Dyspnea, secondary to an acute exacerbation of chronic obstructive pulmonary disease, nodule in the right upper lobe and left upper lobe Mr. Coello is a 67-year-old white male patient who presented to the hospital on 02/15/2018 with severe shortness of breath, patient was found in front of the hospital in severe respiratory distress. Patient reports increased cough, chest congestion, and worsening dyspnea over the course of 2 weeks, and his sputum was very dark, but denies hemoptysis. Denies any fever or chills. Denies any sick contacts. Patient has a known history of severe advanced oxygen -dependent COPD, with previously documented FEV1 of 1.14 L or 36% of predicted from 2017. [facility] In [facility] he was noted to have a 8 mm peripheral left basilar pulmonary nodule. He was also diagnosed with pulmonary emboli at that time and was placed on anticoagulation in the form of the Xarelto, he remains on anticoagulation at this time, in the form of Eliquis 2.5 mm twice daily. In 2017 CT chest showed advanced emphysema, and a new elongated spiculated density measuring 1.7 x 0.7 x 2.4 cm in the right upper lobe. Patient was scheduled to undergo a biopsy by a ceramic designer [facility], however in view of patient's poor lung function the procedure considered risky, and the patient decided not to go through with it. Patient had 2 PET scans, the results of which are unavailable to us. Patient is very frail and cachectic, and has severe exercise capacity limitation related to his poor lung function. Past medical history is positive for severe peptic ulcer disease, status post gastrectomy, COPD, past exposure to hepatitis C, anxiety, depression, past history of nicotine dependence, patient carries a [id number] smoking history. Has a history of service, 21 years in the [employer]. His maintenance inhalers include Spiriva, Symbicort, Ventolin, and albuterol nebulized treatments. Patient was last seen in the pulmonary office by Dr. Pratt in 2017, after that patient followed with his ceramic designer from the [place] [facility]. Chest x-ray showed chronic emphysematous changes without acute pulmonary process, and a persistent spiculated nodule in the lateral right upper lung. EKG showed sinus tachycardia rate of 110 BPM. Labs showed white count of 7.1, hemoglobin of 15.6, sodium of 135, potassium is 5.1, chloride is 90, CO2 34, BUN is 18, creatinine 0.65, CK-MB of 2.8, troponin was negative 1, proBNP of 927. On 02/17/2018 patient seen in follow-up on medical surgical floor. Still significantly dyspneic at rest, and even speaking. He states his breathing has not improved, although his sputum appears to be guest relations agent than on admission. He' ll very thick and yellow. Physical exam reveals decreased air entry bilaterally. Patient remains on 3 L per nasal cannula with O2 sat at 97%, he is afebrile, he is on Zithromax, nebulized bronchodilators. No new labs or chest x-rays today. The patient is seen today 02/18/2018 in follow-up on the regular medical floor. He is in mild respiratory distress. He states he is breathing better today as compared to yesterday still not quite back to his baseline. Still somewhat bronchospastic and wheezy. He is currently afebrile. Hemodynamically stable. Maintain O2 saturations in the upper 90s on 3 L/m per nasal cannula. White count 7.8. Hemoglobin 12.7. Creatinine 0.56. Reevaluated today on 02/19/2018, patient continues to have shortness of breath with any activity, some cough which is productive with slightly yellow phlegm, no fever no chills no hemoptysis no chest pain. Patient is maintaining O2 sats in the 90s on 3 L nasal cannula. All his labs were reviewed including basic metabolic profile and CBC. They seem to be relatively unremarkable. On 02/20/2018 patient seen again on medical surgical floor. Remains very dyspneic at rest, and overall states there has been slight improvement. Not bringing up much sputum, denies any fever or chills, no chest pain. On 3 L per nasal cannula his pulse ox is 98%, is afebrile. Hemodynamically stable. He continues on Zithromax, IV Solu-Medrol, Pulmicort and Perforomist, he is on oral anticoagulation for his history of pulmonary embolism. Has not been able to tolerate much activity related to his dyspnea, and he has concerns about being able to go home. We will speak to the community development planner regarding tensional rehab placement after discharge. Objective - Vital Signs Vital signs: Vital Signs Temp 97.4 F L 02/20/18 07:00 Pulse 92 02/20/18 11:13 Resp 18 02/20/18 07:00 BP 141/75 02/20/18 07:00 Pulse Ox 98 02/20/18 07:00 Intake & Output 02/19/18 02/20/18 02/20/18 18:59 06:59 18:59 Intake Total 640 200 Output Total 1300 800 700 Balance -660 -800 -500 Weight 42.91 kg Intake: Oral 640 200 Output: Urine 1300 800 700 Other: Voiding Method Urinal Urinal # Voids 1 # Bowel Movements 1 - Exam GENERAL EXAM: Alert, frail, cachectic white male, appears chronically ill, patient is dyspneic with normal conversation HEAD: Normocephalic/atraumatic. EYES: Normal reaction of pupils, equal size. Conjunctiva pink, sclera white. NOSE: Clear with pink turbinates. THROAT: No erythema or exudates. NECK: No masses, no JVD, no thyroid enlargement, no adenopathy. CHEST: No chest wall deformity. Symmetrical expansion. LUNGS: Decreased air movement, prolonged expiratory phase CVS: Regular rate and rhythm, normal S1 and S2, no gallops, no murmurs, no rubs ABDOMEN: Soft, nontender. No hepatosplenomegaly, normal bowel sounds, no guarding or rigidity. EXTREMITIES: No clubbing, no edema, no cyanosis, 2+ pulses and upper and lower extremities. MUSCULOSKELETAL: Muscle strength and tone normal. SPINE: No scoliosis or deformity SKIN: No rashes CENTRAL NERVOUS SYSTEM: Alert and oriented -3. No focal deficits, tone is normal in all 4 extremities. PSYCHIATRIC: Alert and oriented -3. Appropriate affect. Intact judgment and insight. - Labs CBC & Chem 7: 02/18/18 07:55 02/18/18 07:55 Labs: Abnormal Lab Results - Last 24 Hours (Table) 02/19/18 02/19/18 02/20/18 Range/Units 12:05 20:54 07:35 POC Glucose (mg/dL) 190 H 112 H 101 H (75-99) mg/dL Assessment and Plan Plan: Assessment: #1. Severe dyspnea secondary to acute exacerbation of chronic obstructive pulmonary disease #2. Advanced oxygen-dependent COPD, with an underlying FEV1 of 1.14 L, or 36% of predicted, consistent with GOLD stage III, as documented in 2017. #3. Spiculated elongated nodule in the right upper lobe, present since September 2016, highly suspicious for malignancy, patient had 2 PET scans at a [facility] in [place], his altered unavailable. The patient is not a surgical candidate or even a candidate for biopsy. #4. Left upper lobe 8mm nodule that has been followed since 2016 #5. Poor baseline exercise capacity related to poor lung function related to advanced COPD #6. History of pulmonary emboli, and patient remains on long-term anticoagulation with Eliquis #7. Cachexia with significant loss of total body muscle mass #8. History of severe peptic ulcer disease, status post gastrectomy and partial vagotomy #9. History of term nicotine dependence, quit in 2016, carries over 46-pack- year smoking history Plan: Continue current medical treatment, patient although very dyspneic with any activity, and at rest, probably close to his baseline. Patient is stable, no fever, no chills, no chest wall tenderness. Patient has concerns about going home and being able to handle himself at home, we will touch base with the community development planner, regarding potential placement in subacute rehab. Otherwise continue with current medications, same IV steroid dose, impaired antibiotics and nebulized bronchodilators. I performed a history & physical examination of the patient and discussed their management with my nurse practitioner, Dai Jerome. I reviewed the nurse practitioner's note and agree with the documented findings and plan of care. Lung sounds are for decreased lung sounds bilaterally, with prolongation of expiratory phase. The findings and the impression was discussed with the patient. I attest to the documentation by the nurse practitioner. Time with Patient: Less than 30
[2018-02-20 12:22] LABS: Glucose,Whole Blood 183 mg/dL (75-99)
--- NOTE | 2018-02-20 14:13 | P.DS ---
Providers Date of admission: 02/16/18 15:29 Expected date of discharge: 02/20/18 Attending physician: Kyleigh Bella Consults: 02/15/18 17:13 Consult Physician Routine Consulting Provider: Mi Pratt Consult Reason/Comments: COPD Do you want consulting provider notified?: Yes Primary care physician: Physician [facility] Course: Final Diagnoses: -Acute on chronic hypercapnic respiratory failure secondary to COPD exacerbation -Tracheobronchitis -Anxiety and depression -Gastroesophageal reflux disease -Chronic weight loss unintentional, CAT scan of the chest which showed nodule in the right upper lobe suspicious for malignancy, not a surgical candidate, not a candidate for biopsy as per pulmonary, F/U OP with Pulmonary -Moderate protein calorie malnutrition with BMI of 14 Hospital COurse:Patient with advanced COPD exac. Evaluated by pulmonary. Treated with nebublized bronchodilators,antibiotics, IV steroids.Significant clinical improvement-back to baseline. cleared by pulmonary for discharge. Discharge to [facility] in a stable consition with guarded prognosis. GENERAL: The patient is alert and oriented x3, not in any acute distress. CARDIOVASCULAR: S1 and S2 present. No murmurs, rubs, or gallops. PULMONARY: Diminshed ABDOMEN: Soft, nontender, nondistended, normoactive bowel sounds. No palpable organomegaly. NEUROLOGICAL: Gross neurological examination did not reveal any focal deficits. The impression and plan of care has been dictated as directed. : I performed a history and examination of this patient, discussed the same with the dictator. I agree with the dictator's note ,documented as a scribe. Any additional findings or plans will be noted. Time taken: 35 minutes Patient Condition at Discharge: Stable Plan - Discharge Summary Discharge Rx Participant: Yes New Discharge Prescriptions: New Azithromycin [Zithromax] 500 mg PO DAILY #5 tab Ipratropium-Albuterol Nebulize [Duoneb 0.5 mg-3 mg/3 ml Soln] 3 ml INHALATION RT-QID #120 ampul.neb Pantoprazole [Protonix] 40 mg PO AC-BID tablet. predniSONE 10 mg PO DIRECTED #30 tab Continue Cyanocobalamin [Vitamin B-12] 1,000 mcg PO DAILY Tiotropium 18 Mcg/Puff [Spiriva] 1 cap INHALATION RT-DAILY Budesonide-Formot 160-4.5 Mcg [Symbicort 160-4.5 Mcg Inhaler] 2 puff INHALATION RT-BID Apixaban [Eliquis] 2.5 mg PO BID Sennosides [Senna] 8.6 mg PO DAILY ALPRAZolam [Xanax] 0.25 mg PO TID PRN #9 tab PRN Reason: Anxiety HYDROcodone/APAP 10-325MG [[place] 10-325] 1 tab PO Q4HR PRN #18 tab PRN Reason: Pain Morphine Sulfate ER [Ms Contin] 30 mg PO Q12HR PRN #6 tablet PRN Reason: Pain Discontinued Albuterol Sulfate [Proventil Hfa] 2 puff INHALATION RT-Q6H PRN PRN Reason: Dyspnea Albuterol Nebulized [Ventolin Nebulized] 2.5 mg INHALATION RT-Q4H PRN PRN Reason: Shortness Of Breath Ranitidine HCl [Zantac] 150 mg PO BID LORazepam [Ativan] 1 mg PO Q6H PRN PRN Reason: Anxiety Omeprazole 20 mg PO BID Discharge Medication List Budesonide-Formot 160-4.5 Mcg [Symbicort 160-4.5 Mcg Inhaler] 2 puff INHALATION RT-BID 11/25/15 [History] Cyanocobalamin [Vitamin B-12] 1,000 mcg PO DAILY 11/25/15 [History] Tiotropium 18 Mcg/Puff [Spiriva] 1 cap INHALATION RT-DAILY 11/25/15 [History] Apixaban [Eliquis] 2.5 mg PO BID 12/29/17 [History] Sennosides [Senna] 8.6 mg PO DAILY 12/29/17 [History] ALPRAZolam [Xanax] 0.25 mg PO TID PRN #9 tab 02/20/18 [Rx] Azithromycin [Zithromax] 500 mg PO DAILY #5 tab 02/20/18 [Rx] HYDROcodone/APAP 10-325MG [[place] 10-325] 1 tab PO Q4HR PRN #18 tab 02/20/18 [Rx] Ipratropium-Albuterol Nebulize [Duoneb 0.5 mg-3 mg/3 ml Soln] 3 ml INHALATION RT -QID #120 ampul.neb 02/20/18 [Rx] Morphine Sulfate ER [Ms Contin] 30 mg PO Q12HR PRN #6 tablet 02/20/18 [Rx] Pantoprazole [Protonix] 40 mg PO AC-BID tablet. 02/20/18 [Rx] predniSONE 10 mg PO DIRECTED #30 tab 02/20/18 [Rx] Follow up Appointment(s)/Referral(s): Sebastián Richardson MD [STAFF PHYSICIAN] - 1 Week Francisco Landers DO [STAFF PHYSICIAN] - 3 Days Activity/Diet/Wound Care/Special Instructions: Rivas CBC,BMP in 3 days 3l NC O2 Discharge Disposition: TRANSFER TO SNF/ECF
[2018-02-20 15:48] VITALS: PULSE 100
[2018-02-21] MEDS ORDERED: predniSONE 20 MG TAB PO SCH (09:00)
== END 2018-02-20 16:38 | disposition home health service (06) | DRG 190 ==
LOC: EC 14:03 → 5MS5E 15:51 → 4MS4W 16:13 → OBSVTOIN 02-16 15:29
PROVIDERS: ADMIT Hospitalist; ATTEND Hospitalist
DX: J44.1 Chronic obstructive pulmonary disease with (acute) exacerbation (principal); J96.21 Acute and chronic respiratory failure with hypoxia; J96.22 Acute and chronic respiratory failure with hypercapnia; E44.0 Moderate protein-calorie malnutrition; R64 Cachexia; C34.11 Malignant neoplasm of upper lobe, right bronchus or lung; Z68.1 Body mass index [BMI] 19.9 or less, adult; F32.9 Major depressive disorder, single episode, unspecified; F41.9 Anxiety disorder, unspecified; K21.9 Gastro-esophageal reflux disease without esophagitis; Z20.5 Contact with and (suspected) exposure to viral hepatitis; Z87.891 Personal history of nicotine dependence; Z79.01 Long term (current) use of anticoagulants; Z79.51 Long term (current) use of inhaled steroids; Z79.899 Other long term (current) drug therapy; Z99.81 Dependence on supplemental oxygen; Z90.3 Acquired absence of stomach [part of]; Z87.11 Personal history of peptic ulcer disease; Z86.711 Personal history of pulmonary embolism; Z88.8 Allergy status to other drugs, medicaments and biological substances; Z80.7 Family history of other malignant neoplasms of lymphoid, hematopoietic and related tissues
CPT/HCPCS: 36415; 71045; 80048; 80053; 82550; 82553; 83036; 83735; 83880; 84484; 85025; 85610; 85730; 93005; 94640; 94644; 94760; 96365; 96366; 99285

== ENCOUNTER → 2018-06-17 | Outpatient (CLI) | payer MEDICARE, OTHER ==
--- NOTE | 2018-06-19 11:14 | PE ---
Nuclear medicine PET/CT HISTORY: Solitary pulmonary nodule, R 91.1, initial Patient received 11.7 mCi F-18 FDG intravenously in delayed scanning was performed from the skull bas e to the mid thighs. Localization and attenuation correction CT scan was performed. Correlation to prior chest CT 09/24/2016, chest x-ray 02/15/2018, CT abdomen pelvis 02/03/2016 Neck and chest: Carotid artery calcifications are present. No evident cervical or supraclavicular amanda nopathy. No mediastinal, axillary, or hilar adenopathy. Coronary artery calcifications are present. E xtensive emphysematous changes are present within the lungs. Subpleural nodular density on image 105 left lower lobe measures approximately 9 to 10 mm but does not show significant hypermetabolic uptake although nodule is an interval finding, there is a nodular density on axial image #72 and shows SUV of only 1.0 and measures only 11 to 12 mm could possibly be postinflammatory, nodule size has not giancarlo nged significantly compared to prior CT. Postop changes are noted gastroesophageal junction. Gastric uptake is likely physiologic. Abdomen pelvis: No suspicious hypermetabolic uptake. No retroperitoneal adenopathy or adrenal mass. N o evident liver mass. Bowel uptake is felt likely to be physiologic. Some presacral uptake may be rel ated to bowel activity but is indeterminate. Osseous structures are unremarkable. Muscular uptake noted is likely physiologic. Prostate calcificat ions noted incidentally. IMPRESSION: Right upper lobe nodule shows a stable appearance, additional follow-up is recommended. I nterval nodule left lower lobe as described. Indeterminate presacral uptake thought likely related to bowel.
== END | disposition home or self-care (01) ==
LOC: RADPETMAIN 07:36
PROVIDERS: ATTEND Radiology Radiation Oncology
DX: R91.1 Solitary pulmonary nodule (principal)
CPT/HCPCS: 78815; A9552

== ENCOUNTER → 2018-12-04 | Outpatient (CLI) | payer MEDICARE, OTHER ==
--- NOTE | 2018-12-06 13:25 | P.ARTDOP ---
Arterial Doppler LOWER EXTREMITY ARTERIAL DOPPLER: DATE OF SERVICE: 12/04/2018 Reason for study: Suspected peripheral arterial disease. Doppler waveforms: Multiphasic at both femorals but atypical below. Pulse volume recording: []. Pressure gradients: Above the low thigh bilaterally and across the knee bilaterally. Ankle-brachial indices: 0.66 on the right and 0.63 on the left. Toe pressures: [] on the right, [] on the left Impression: Moderate bilateral fem-pop disease..
== END | disposition home or self-care (01) ==
LOC: RADUSWWP 13:22
PROVIDERS: ATTEND Family Medicine
DX: I73.9 Peripheral vascular disease, unspecified (principal)
CPT/HCPCS: 93923

== ENCOUNTER 2019-03-14 15:32 | Inpatient (IN) | payer MEDICARE, OTHER ==
[2019-03-14] MEDS ORDERED: SODIUM CHLORIDE 0.9% 500 ML 500 ML IV STA (16:06)
[2019-03-14] MEDS ORDERED: ALBUTEROL NEBULIZED 2.5 MG/3 ML INHALATION STA (16:07)
[2019-03-14] MEDS ORDERED: IPRATROPIUM 0.5 MG/2.5 ML NEBU INHALATION STA (16:07)
[2019-03-14] MEDS: DEXAMETHASONE SOD PHOSPHATE 10 MG/ML 1 ML VIAL IV STA (16:28)
[2019-03-14 16:30] LABS: VBG PH 7.33 (7.31-7.41)
[2019-03-14 16:30] LABS: Basophils % (A) 0 %; Eosinophils # (A) 0.2 k/uL (0-0.7); Eosinophils % (A) 2 %; HCT 47.2 % (39.0-53.0); HGB 14.3 gm/dL (13.0-17.5); Hypochromasia Slight; Lymphocytes # (A) 1.4 k/uL (1.0-4.8); Lymphocytes % (A) 13 %; MCH 29.8 pg (25.0-35.0); MCHC 30.3 g/dL (31.0-37.0); MCV 98.5 fL (80.0-100.0); Mean Platelet Volume 6.6; Monocytes # (A) 0.5 k/uL (0-1.0); Monocytes % (A) 5 %; Neutrophils % (A) 78 %; Platelet Count 311 k/uL (150-450); RBC 4.79 m/uL (4.30-5.90); RDW 13.7 % (11.5-15.5); WBC 10.2 k/uL (3.8-10.6)
--- NOTE | 2019-03-14 16:32 | ED ---
General Adult HPI - General Chief complaint: Shortness of Breath Stated complaint: SHALONDA Time Seen by Provider: 03/14/19 15:54 Source: patient Mode of arrival: ambulatory Limitations: no limitations - History of Present Illness Initial comments: Dictation was produced using [employer] dictation software. please excuse any grammatical, word or spelling errors. Chief Complaint: 68-year-old male past medical history of severe COPD presents with dyspnea. History of Present Illness: An is a 68-year-old male he has extensive history of COPD was brought to the emergency department from the [facility] for acute significant dyspnea. Patient is a poor historian at this time given his medical condition. Chart review shows that patient has advanced COPD and is reliant on home oxygen. Patient was noted to have a forced expiratory volume that is very poor. Patient states he has some mild chest pain to the right chest. States it is a sharp crushing pain. The ROS documented in this emergency department record has been reviewed and confirmed by me. Those systems with pertinent positive or negative responses have been documented in the HPI. All other systems are other negative and/or noncontributory. PHYSICAL EXAM: General Impression: Alert and oriented x3, acutely dyspneic with pursed lips, cachectic sick HEENT: Normocephalic atraumatic, extra-ocular movements intact, pupils equal and reactive to light bilaterally, mucous membranes moist. Cardiovascular: Heart regular rate and rhythm, S1&S2 audible, no murmurs, rubs or gallops Chest: Diminished bilateral breath sounds Abdomen: Bowel sounds present, abdomen soft, non-tender, non-distended, no organomegaly Musculoskeletal: Pulses present and equal in all extremities, no peripheral edema Motor: no focal deficits noted Neurological: CN II-XII grossly intact, no focal motor or sensory deficits noted Skin: Intact with no visualized rashes Psych: Anxious ED course: 77-year-old male presents with chief complaint of dyspnea. Vital signs upon arrival shows respiratory rate of 18, worse vital signs within acceptable limits. A hankins showing significant respiratory distress. While at bedside his symptoms improved and he is now breathing more comfortably. BiPAP to be held at this time.Laboratory evaluation obtained. CBC unremarkable. Coag panel unremarkable. Blood gases shows pCO2 of 65 with metabolic compensation. Speech is normal. Potassium is 5.2. No acidosis. Chest x-ray shows COPD and pulmonary fibrosis. Patient reevaluated after initial breathing treatment with stable medical findings. Patient has better air entry and air movement. Patient resting comfortably at this time. He is given steroids, azithromycin. Given patient's clinical presentation we'll admit her for COPD exacerbation. Pulmonology on consult. Discussed patient case with Dr. Mason who is agreeable EKG interpretation: Ventricular rate in 93, sinus rhythm with sinus arrhythmia, IL interval 144, care 78, QTC 410. No IL prolongation, no QTC prolongation, no ST or T-wave changes noted. EKG compared to 02/15/2018 showing no changes. Overall, this EKG is unremarkable - Related Data Home Medications Medication Instructions Recorded Confirmed Budesonide-Formot 160-4.5 Mcg 2 puff INHALATION RT-BID 11/25/15 03/14/19 [Symbicort 160-4.5 Mcg Inhaler] Cyanocobalamin [Vitamin B-12] 500 mcg PO DAILY 11/25/15 03/14/19 Tiotropium 18 Mcg/Puff [Spiriva] 1 cap INHALATION RT-DAILY 11/25/15 03/14/19 Apixaban [Eliquis] 2.5 mg PO BID 12/29/17 03/14/19 Sennosides [Senna] 17.2 mg PO HS 12/29/17 03/14/19 Albuterol Inhaler [Ventolin Hfa 2 puff INHALATION RT-Q6H PRN 03/14/19 03/14/19 Inhaler] HYDROcodone/APAP 10-325MG [[place] 1 tab PO Q4HR PRN 03/14/19 03/14/19 10-325] LORazepam [Ativan] 1 mg PO Q8H PRN 03/14/19 03/14/19 Morphine Sulfate ER [Ms Contin] 30 mg PO BID@0900,2100 03/14/19 03/14/19 Nicotine Polacrilex [Nicorette] 2 mg PO Q4H PRN 03/14/19 03/14/19 Omeprazole 40 mg PO BID 03/14/19 03/14/19 Polyethylene Glycol 3350 [Miralax] 17 gm PO DAILY PRN 03/14/19 03/14/19 Ranitidine HCl [Zantac] 150 mg PO BID 03/14/19 03/14/19 Allergies Allergy/AdvReac Type Severity Reaction Status Date / Time theophylline Allergy Rash/Hives Verified 03/14/19 16:24 metaproterenol sulfate AdvReac shaking Verified 03/14/19 16:24 [From Alupent] Review of Systems ROS Statement: Those systems with pertinent positive or pertinent negative responses have been documented in the HPI. ROS Other: All systems not noted in ROS Statement are negative. Past Medical History Past Medical History: COPD, GERD/Reflux Additional Past Medical History / Comment(s): exposure in past to Hep. C, recent admission in Sep. for COPD-went to [facility] for short time after for rehab to build up strength, using oxygen most of the time 3-4l History of Any Multi-Drug Resistant Organisms: None Reported Past Surgical History: Appendectomy Additional Past Surgical History / Comment(s): 70% OF STOMACH REMOVED R/T ULCER DISEASE, partial vagotomy. Past Anesthesia/Blood Transfusion Reactions: No Reported Reaction Past Psychological History: Anxiety, Depression Smoking Status: Current every day smoker Past Alcohol Use History: None Reported Past Drug Use History: None Reported - Past Family History Mother Additional Family Medical History / Comment(s): ? brain tumor Father History Unknown: Yes Additional Family Medical History / Comment(s): lymphoma General Exam Limitations: no limitations Course Vital Signs 03/14/19 03/14/19 03/14/19 15:49 16:17 16:32 Temperature 97.7 F Pulse Rate 91 87 92 Respiratory 18 Rate Blood Pressure 109/68 O2 Sat by Pulse 94 L Oximetry 03/14/19 16:47 Temperature Pulse Rate 91 Respiratory Rate Blood Pressure O2 Sat by Pulse Oximetry Medical Decision Making - Lab Data Result diagrams: 03/14/19 16:23 03/14/19 16:23 Lab Results 03/14/19 03/14/19 03/14/19 Range/Units 16:08 16:23 16:23 WBC 10.2 (3.8-10.6) k/uL RBC 4.79 (4.30-5.90) m/uL Hgb 14.3 (13.0-17.5) gm/dL Hct 47.2 (39.0-53.0) % MCV 98.5 (80.0-100.0) fL MCH 29.8 (25.0-35.0) pg MCHC 30.3 L (31.0-37.0) g/dL RDW 13.7 (11.5-15.5) % Plt Count 311 (150-450) k/uL Neutrophils % 78 % Lymphocytes % 13 % Monocytes % 5 % Eosinophils % 2 % Basophils % 0 % Neutrophils # 8.0 H (1.3-7.7) k/uL Lymphocytes # 1.4 (1.0-4.8) k/uL Monocytes # 0.5 (0-1.0) k/uL Eosinophils # 0.2 (0-0.7) k/uL Basophils # 0.0 (0-0.2) k/uL Hypochromasia Slight PT (9.0-12.0) sec INR (<1.2) APTT (22.0-30.0) sec VBG pH 7.33 (7.31-7.41) VBG pCO2 65 H (37-51) mmHg VBG HCO3 34 H (24-28) mmol/L Sodium 139 (137-145) mmol/L Potassium 5.2 H (3.5-5.1) mmol/L Chloride 97 L (98-107) mmol/L Carbon Dioxide 34 H (22-30) mmol/L Anion Gap 8 mmol/L BUN 19 (9-20) mg/dL Creatinine 0.70 (0.66-1.25) mg/dL Est GFR (CKD-EPI)AfAm >90 (>60 ml/min/1.73 sqM) Est GFR (CKD-EPI)NonAf >90 (>60 ml/min/1.73 sqM) Glucose 106 H (74-99) mg/dL Calcium 9.6 (8.4-10.2) mg/dL Magnesium 2.2 (1.6-2.3) mg/dL Total Bilirubin 0.4 (0.2-1.3) mg/dL AST 58 (17-59) U/L ALT 49 (21-72) U/L Alkaline Phosphatase 62 (38-126) U/L Troponin I (0.000-0.034) ng/mL Total Protein 7.3 (6.3-8.2) g/dL Albumin 4.4 (3.5-5.0) g/dL 03/14/19 03/14/19 Range/Units 16:23 16:23 WBC (3.8-10.6) k/uL RBC (4.30-5.90) m/uL Hgb (13.0-17.5) gm/dL Hct (39.0-53.0) % MCV (80.0-100.0) fL MCH (25.0-35.0) pg MCHC (31.0-37.0) g/dL RDW (11.5-15.5) % Plt Count (150-450) k/uL Neutrophils % % Lymphocytes % % Monocytes % % Eosinophils % % Basophils % % Neutrophils # (1.3-7.7) k/uL Lymphocytes # (1.0-4.8) k/uL Monocytes # (0-1.0) k/uL Eosinophils # (0-0.7) k/uL Basophils # (0-0.2) k/uL Hypochromasia PT 9.4 (9.0-12.0) sec INR 0.9 (<1.2) APTT 26.5 (22.0-30.0) sec VBG pH (7.31-7.41) VBG pCO2 (37-51) mmHg VBG HCO3 (24-28) mmol/L Sodium (137-145) mmol/L Potassium (3.5-5.1) mmol/L Chloride (98-107) mmol/L Carbon Dioxide (22-30) mmol/L Anion Gap mmol/L BUN (9-20) mg/dL Creatinine (0.66-1.25) mg/dL Est GFR (CKD-EPI)AfAm (>60 ml/min/1.73 sqM) Est GFR (CKD-EPI)NonAf (>60 ml/min/1.73 sqM) Glucose (74-99) mg/dL Calcium (8.4-10.2) mg/dL Magnesium (1.6-2.3) mg/dL Total Bilirubin (0.2-1.3) mg/dL AST (17-59) U/L ALT (21-72) U/L Alkaline Phosphatase (38-126) U/L Troponin I <0.012 (0.000-0.034) ng/mL Total Protein (6.3-8.2) g/dL Albumin (3.5-5.0) g/dL Disposition Clinical Impression: COPD exacerbation Disposition: ADMITTED IP TO THIS HOSP Condition: Fair Referrals: Nadir Mason MD [Primary Care Provider] - 1-2 days Decision Time: 17:06
--- NOTE | 2019-03-14 16:38 | XR ---
EXAMINATION TYPE: XR chest 1V portable DATE OF EXAM: 03/14/2019 COMPARISON: 02/15/2018 HISTORY: Short of breath TECHNIQUE: Single frontal view of the chest is obtained. FINDINGS: Heart is normal. Lungs are clear of consolidation. There are no hilar masses. Thoracic aor ta is atheromatous. There is some coarsening of interstitial markings. There are emphysematous change s. Bony thorax is intact. IMPRESSION: COPD and pulmonary fibrosis. There is some clearing of small pleural effusions compared to old exam. No heart failure.
[2019-03-14 16:39] LABS: ALT 49 U/L (21-72); AST 58 U/L (17-59); African American GFR (CKD) >90 (>60 ml/min/1.73 sqM); Albumin 4.4 g/dL (3.5-5.0); Alkaline Phosphatase 62 U/L (38-126); Anion Gap 8 mmol/L; Blood Urea Nitrogen 19 mg/dL (9-20); Calcium 9.6 mg/dL (8.4-10.2); Carbon Dioxide 34 mmol/L (22-30); Chloride 97 mmol/L (98-107); Glucose 106 mg/dL (74-99); Magnesium 2.2 mg/dL (1.6-2.3); Potassium 5.2 mmol/L (3.5-5.1); Sodium 139 mmol/L (137-145); Total Bilirubin 0.4 mg/dL (0.2-1.3); Total Protein 7.3 g/dL (6.3-8.2)
[2019-03-14 16:40] LABS: INR 0.9 (<1.2); Partial Thromboplastin Time 26.5 sec (22.0-30.0); Prothrombin Time 9.4 sec (9.0-12.0)
[2019-03-14] MEDS ORDERED: AZITHROMYCIN 500 MG TAB PO STA (17:08)
[2019-03-14] MEDS ORDERED: HYDROcodone/APAP 10-325MG 1 EACH TAB PO PRN (18:23)
[2019-03-14] MEDS ORDERED: LORazepam 1 MG TAB PO PRN (18:23)
[2019-03-14] MEDS ORDERED: POLYETHYLENE GLYCOL 3350 17 GM POWD.PACK PO PRN (18:23)
[2019-03-14] MEDS ORDERED: NICOTINE POLACRILEX 2 MG GUM BUCCAL PRN (18:23)
[2019-03-14] MEDS ORDERED: RX INFO: IV CONTRAST WAS GIVEN 1 EACH MISC MISCELLANE PRN (18:25)
--- NOTE | 2019-03-14 19:32 | CT ---
EXAMINATION TYPE: CT chest w con DATE OF EXAM: 03/14/2019 COMPARISON: 09/24/2016 HISTORY: SOB, COPD CT DLP: 129.9 mGycm Automated exposure control for dose reduction was used. CONTRAST: CT scan of the chest is performed with IV Contrast, patient injected with 100 mL of Isovue 300. FINDINGS: There is diffuse pulmonary emphysema. There is some stellate reticular infiltrate in the lateral aspe ct right upper lobe. There is no pleural effusion. Heart size is normal. There is no pericardial effu tyler. There are no hilar masses. There is no mediastinal adenopathy. There is 30% anterior wedging of T8 vertebra. There is slight anterior wedging of multiple mid thora cic vertebra. There is osteopenia. I see no focal bone destruction. IMPRESSION: There is a 15 mm stellate infiltrate lateral aspect right upper lobe that appears the sa me or smaller than old CT scan and consistent with scarring. Pulmonary emphysema. Multiple osteoporotic type thoracic compression fractures. Unchanged.
[2019-03-14] MEDS ORDERED: FAMOTIDINE 20 MG TAB PO SCH (21:00)
[2019-03-14] MEDS: APIXABAN 2.5 MG TABLET PO SCH (21:36)
[2019-03-14] MEDS: MORPHINE SULFATE ER 30 MG TABLET PO SCH (21:36)
[2019-03-14] MEDS: SENNOSIDES 8.6 MG TAB PO SCH (21:37)
[2019-03-14] MEDS: PANTOPRAZOLE 40 MG TABLET PO SCH (21:38)
[2019-03-15] MEDS: IPRATROPIUM-ALBUTEROL 3 ML NEB INHALATION PRN ×2 (00:12→04:08)
--- NOTE | 2019-03-15 08:19 | HP ---
HISTORY AND PHYSICAL CHIEF COMPLAINT: A 68-year-old white male with severe COPD and dyspnea. States he came to the hospital mainly because of severe PAD, pain down his legs. He wants a vascular consult and wants to be evaluated for his PAD. He has longstanding history of advanced COPD on home and is possibly going to be going into hospice soon for history of lung cancer. Home medications include: 1. Symbicort. 2. B12. 3. Spiriva. 4. Eliquis. 5. Senna. 6. Ventolin. 7. [place]. 8. Ativan. 9. MS Contin. 10. . 11.Omeprazole. 12.Zantac. He had elevated with a pCO2 of 65, at which he came to the hospital, potassium is 5.2. He had no acidosis. Chest x-ray shows COPD and pulmonary fibrosis. ALLERGIES: METOPROLOL, THEOPHYLLINE. PAST MEDICAL HISTORY: COPD, GERD, hep C and 70% of his stomach removed from an ulcer, possible pressure vagotomy. He is a current everyday smoker and has severe chronic pain taken long-term pain medicines for multiple years from the [place]. FAMILY HISTORY: Mother with a brain tumor. Father with lymphoma. Temp 97.7, pulse 87-92, respiratory rate 16 to 18, blood pressure 109/60s, O2 is 94% on 3 L. LABS: Reviewed. Sodium 139, potassium 5.2, BUN 19, creatinine 0.7. ASSESSMENT: 1. Chronic obstructive pulmonary disease exacerbation, tracheobronchitis, PAD, significant PAD claudication, chronic pain syndrome, history of possible protein calorie malnutrition, generalized weakness. 2. CAT scan of his lung was ordered, which shows no significant adenopathy and no masses, osteopenia. No focal bone destruction 50 mm stellate infiltrate right upper lobe into the road. CT scan consistent with scarring. Multiple vertebral fractures unchanged. Continue current treatment. Await Pulmonary consultation. MMODL / IJN: [id number] /
[2019-03-15] MEDS ORDERED: IPRATROPIUM-ALBUTEROL 3 ML NEB INHALATION PRN (08:33)
[2019-03-15] MEDS: SYMBICORT 160-4.5 MCG INHALER INHALATION SCH ×2 (09:19→11:02)
[2019-03-15] MEDS: PANTOPRAZOLE 40 MG TABLET PO SCH ×2 (09:29→17:27)
[2019-03-15] MEDS: MORPHINE SULFATE ER 30 MG TABLET PO SCH ×2 (09:29→20:47)
[2019-03-15] MEDS: APIXABAN 2.5 MG TABLET PO SCH ×2 (09:29→20:47)
[2019-03-15] MEDS: predniSONE 20 MG TAB PO SCH (09:29)
[2019-03-15] MEDS: IPRATROPIUM-ALBUTEROL 3 ML NEB INHALATION SCH ×3 (11:02→19:34)
[2019-03-15 11:26] LABS: Glucose,Whole Blood 114 mg/dL (75-99)
[2019-03-15] MEDS: INSULIN ASPART (NovoLOG) 100 UNIT/ML VIAL SQ SCH ×3 (11:30→20:47)
[2019-03-15 11:41] VITALS: BMI 15.6
--- NOTE | 2019-03-15 14:31 | CONS ---
DATE OF CONSULTATION: 03/15/2019 This is a 68-year-old gentleman who has been admitted to [facility] with history of COPD and patient has a history of claudication, no rest pain. Patient had a partial gastrectomy in the past. No history of diabetes. PHYSICAL EXAMINATION: The patient has nasal cannula. CHEST: A few rhonchi. ABDOMEN: Soft. FEMORALS: 2+. Posterior tibial does not feel palpable. No ischemic ulcer noted. No history of rest pain. Patient has a PVR done today. We will review the report. At this point, patient does not need any major surgical intervention. When he is discharged from the hospital, I will follow up with him in my office. MMODL / IJN: [id number] / MTDTonio
--- NOTE | 2019-03-15 15:28 | P.CNPUL ---
History of Present Illness Consult date: 03/15/19 Reason for consult: COPD History of present illness: 68-year-old male patient, advanced oxygen-dependent COPD with chronic hypoxic respiratory failure who is coming in with worsening shortness of breath. His last hospitalization was in 02/16/2018. Over this past year the patient continued to smoke around one pack of cigarettes a day. His condition is a progressively declining and the patient has gotten to a point where he was unable to perform activities of daily today life without any major difficulties. Note that a previous pulmonary function test on this patient from 2017 showed an FEV1 of 1.14 L which is only 36% of predicted. He also was found to have a spiculated density measuring 1.7 x 0.7 x 2.4 cm in the right upper lobe. A repeat CAT scan of the chest was done during this current admission and the findings are essentially stable and as such and in the absence of any growth, this is most likely a benign scar. No biopsies have been obtained on this patient. He carries more than [id number] smoking history. He is on a combination of Symbicort and Spiriva and Ventolin rescue inhaler on as needed basis. He is oxygen dependent. He is coming in with worsening shortness of breath. He has a congested cough. Unable to bring up much sputum. No significant chest pain. No altered mentation per no nausea. No vomiting. No pleurisy. No hemoptysis. Quite debilitated and very poor performance and functional status. Initially he was given BiPAP briefly and subsequently was switched back on oxygen and currently is on 3 L of oxygen nasal cannula. Review of Systems Constitutional: Reports chronic pain, Reports fatigue, Reports lethargy, Reports night sweats, Reports weakness, Reports weight loss Eyes: denies as per HPI, denies blurred vision, denies bulging eye, denies decreased vision, denies diplopia, denies discharge, denies dry eye, denies irritation, denies itching, denies pain, denies photophobia, denies loss of peripheral vision, denies loss of vision, denies tunnel vision/blind spots Ears: deny: decreased hearing, ear discharge, earache, tinnitus Ears, nose, mouth and throat: Denies headache, Denies sore throat Cardiovascular: Reports chest pain, Reports decreased exercise tolerance, Reports dyspnea on exertion, Reports shortness of breath Respiratory: Reports cough, Reports dyspnea, Reports home oxygen, Reports wheezing Gastrointestinal: Reports loss of appetite Genitourinary: Reports as per HPI Musculoskeletal: Reports as per HPI (Patient is also osteoporosis with compression fractures), Reports low back pain Musculoskeletal: absent: ankle pain, ankle stiffness, ankle swelling, as per HPI, elbow pain, elbow stiffness, elbow swelling, foot pain, foot stiffness, foot swelling, hand pain, hand stiffness, hand swelling, hip pain, hip stiffness, hip swelling, knee pain, knee stiffness, knee swelling, shoulder pain, shoulder stiffness, shoulder swelling, wrist pain, wrist stiffness, wrist swelling Integumentary: Denies pruritus, Denies rash Neurological: Reports weakness Psychiatric: Reports as per HPI Endocrine: Reports as per HPI Hematologic/Lymphatic: Reports as per HPI Allergic/Immunologic: Reports as per HPI Past Medical History Past Medical History: COPD, GERD/Reflux Additional Past Medical History / Comment(s): Severe COPD with an FEV1 of 36% of predicted, chronic spiculated right upper lobe scar, previous exposure to hepatitis C, anxiety, depression, chronic nicotine addiction and the patient carries more than [id number] smoking history. Previous history of peptic ulcer disease in the patient has had a partial gastrectomy. He has also had a vagotomy History of Any Multi-Drug Resistant Organisms: None Reported Past Surgical History: Appendectomy Additional Past Surgical History / Comment(s): 70% OF STOMACH REMOVED R/T ULCER DISEASE, partial vagotomy. Past Anesthesia/Blood Transfusion Reactions: No Reported Reaction Past Psychological History: Anxiety, Depression Smoking Status: Current some day smoker Past Alcohol Use History: None Reported Additional Past Alcohol Use History / Comment(s): quit smoking 2015, had smoked since early , 6-12 beers per week. Past Drug Use History: None Reported - Past Family History Mother Additional Family Medical History / Comment(s): There is a questionable history of brain tumor in the family. This is present in the mother. His father had lymphoma. Father History Unknown: Yes Additional Family Medical History / Comment(s): lymphoma Medications and Allergies Home Medications Medication Instructions Recorded Confirmed Type Budesonide-Formot 160-4.5 Mcg 2 puff INHALATION RT-BID 11/25/15 03/14/19 History [Symbicort 160-4.5 Mcg Inhaler] Cyanocobalamin [Vitamin B-12] 500 mcg PO DAILY 11/25/15 03/14/19 History Tiotropium 18 Mcg/Puff [Spiriva] 1 cap INHALATION RT-DAILY 11/25/15 03/14/19 History Apixaban [Eliquis] 2.5 mg PO BID 12/29/17 03/14/19 History Sennosides [Senna] 17.2 mg PO HS 12/29/17 03/14/19 History Albuterol Inhaler [Ventolin Hfa 2 puff INHALATION RT-Q6H PRN 03/14/19 03/14/19 History Inhaler] HYDROcodone/APAP 10-325MG [[place] 1 tab PO Q4HR PRN 03/14/19 03/14/19 History 10-325] LORazepam [Ativan] 1 mg PO Q8H PRN 03/14/19 03/14/19 History Morphine Sulfate ER [Ms Contin] 30 mg PO BID@0900,2100 03/14/19 03/14/19 History Nicotine Polacrilex [Nicorette] 2 mg PO Q4H PRN 03/14/19 03/14/19 History Omeprazole 40 mg PO BID 03/14/19 03/14/19 History Polyethylene Glycol 3350 [Miralax] 17 gm PO DAILY PRN 03/14/19 03/14/19 History Ranitidine HCl [Zantac] 150 mg PO BID 03/14/19 03/14/19 History Allergies Allergy/AdvReac Type Severity Reaction Status Date / Time theophylline Allergy Rash/Hives Verified 03/14/19 16:24 metaproterenol sulfate AdvReac shaking Verified 03/14/19 16:24 [From Alupent] Physical Exam Vitals: Vital Signs Temp Pulse Pulse Resp BP BP Pulse Ox 03/15/19 12:00 97.9 F 92 19 121/64 95 03/15/19 11:16 94 03/15/19 11:02 100 03/15/19 05:00 97.8 F 95 20 110/65 99 03/15/19 04:25 92 03/15/19 04:09 88 03/15/19 00:24 80 03/15/19 00:12 79 100 03/15/19 00:00 93 20 03/14/19 21:00 98.0 F 93 20 127/80 99 03/14/19 18:40 97.9 F 89 17 125/73 98 03/14/19 17:35 98.1 F 87 18 122/74 94 L 03/14/19 16:47 91 03/14/19 16:32 92 03/14/19 16:17 87 03/14/19 15:49 97.7 F 91 18 109/68 94 L Intake and Output 03/15/19 03/15/19 03/15/19 06:59 14:59 22:59 Intake Total 590 Balance 590 Intake: Oral 590 Other: Voiding Method Indwelling Catheter # Voids 1 1 Weight 46.629 kg GENERAL EXAM: Alert, frail, cachectic white male, appears chronically ill, jovana ent is dyspneic with normal conversation HEAD: Normocephalic/atraumatic. EYES: Normal reaction of pupils, equal size. Conjunctiva pink, sclera white. NOSE: Clear with pink turbinates. THROAT: No erythema or exudates. NECK: No masses, no JVD, no thyroid enlargement, no adenopathy. CHEST: No chest wall deformity. Symmetrical expansion. LUNGS: Decreased air movement, prolonged expiratory phase and there is expiratory wheezes throughout the lung weir bilaterally. CVS: Regular rate and rhythm, normal S1 and S2, no gallops, no murmurs, no rubs ABDOMEN: Soft, nontender. No hepatosplenomegaly, normal bowel sounds, no guarding or rigidity. EXTREMITIES: No clubbing, no edema, no cyanosis, 2+ pulses and upper and lower extremities. MUSCULOSKELETAL: Muscle strength and tone normal. SPINE: No scoliosis or deformity SKIN: No rashes CENTRAL NERVOUS SYSTEM: Alert and oriented -3. No focal deficits, tone is normal in all 4 extremities. PSYCHIATRIC: Alert and oriented -3. Appropriate affect. Intact judgment and insight. Results - Laboratory Findings CBC and BMP: 03/14/19 16:23 03/14/19 16:23 PT/INR, D-dimer PT 9.4 sec (9.0-12.0) 03/14/19 16:23 INR 0.9 (<1.2) 03/14/19 16:23 Abnormal lab findings: Abnormal Labs 03/14/19 03/14/19 03/14/19 16:08 16:23 16:23 MCHC 30.3 L Neutrophils # 8.0 H VBG pCO2 65 H VBG HCO3 34 H Potassium 5.2 H Chloride 97 L Carbon Dioxide 34 H Glucose 106 H POC Glucose (mg/dL) 03/15/19 11:25 MCHC Neutrophils # VBG pCO2 VBG HCO3 Potassium Chloride Carbon Dioxide Glucose POC Glucose (mg/dL) 114 H - Diagnostic Findings CT scan - chest: image reviewed Assessment and Plan Plan: 1 acute COPD exacerbation with secondary shortness of breath 2 severe and advanced/and states COPD with a previous FEV1 of 36% of predicted. This was documented back in 2017. Nevertheless the patient's overall performance and functional status has declined significantly. No subsequent reevaluation his lung capacity has been done over the past 2 years. He francesco nued to smoke cigarettes. He is oxygen dependent and he has chronic hypoxic respiratory failure 3 right upper lobe spiculated scar unchanged on the most recent follow-up CAT scan of the chest 4 very poor baseline performance and functional status secondary to above 5. History of pulmonary embolism 6 cachexia with significant loss and total body muscle mass 7 history of severe peptic ulcer disease with a partial gastrectomy and vagotomy 8 nicotine addiction/smoking more than [id number] 9 multiple osteoporotic thoracic compression fractures as visualized on the CAT scan of the chest Plan Agree on the current treatment. Smoking cessation counseling was done. The patient reports significant limitation of exercise capacity. She is unable to enjoy life and he is very much interested in hospice care. I think this may be initiated within next 24-48 hours. Meanwhile, I agree on the current treatment. We'll continue to follow. I reassured on the results of the CAT scan of the chest. No evidence of malignancy. Highly doubt DVT of the lower extremity. The patient is on long-term anticoagulation with Eliquis. The prognosis poor baseline above-mentioned comorbidities.
--- NOTE | 2019-03-15 16:11 | P.PN ---
Subjective Progress Note Date: 03/15/19 This is 60-year-old severe COPD, dyspnea, severe PAD, claudication, history of lung cancer. Arteriogram /PVR performed, final report pending. Evaluated by vascular surgery, recommendations noted including no surgical intervention. Pulmonary consult in place with recommendations noted. Ambulating to and from bathroom with walker, minimal to no reserve. Maintaining O2 sats in the 90s on 3 L nasal cannula.VSS. Objective - Vital Signs Vital signs: Vital Signs Temp 97.8 F 03/15/19 05:00 Pulse 95 03/15/19 05:00 Resp 20 03/15/19 05:00 BP 110/65 03/15/19 05:00 Pulse Ox 99 03/15/19 05:00 Intake & Output 03/14/19 03/15/19 03/15/19 18:59 06:59 18:59 Intake Total 1180 Balance 1180 Weight 48.716 kg Intake: Oral 1180 Other: Voiding Method Indwelling Catheter # Voids 1 - Exam PHYSICAL EXAM: VITAL SIGNS: As above GENERAL: Alert and oriented 3, respiratory effort increased HEENT: Conjunctivae normal. eyes normal. NECK: No JVD. No thyroid enlargement. No LNs CARDIOVASCULAR: S1, S2 regular.. No murmur RESPIRATION: Decreased air entry, Breath sounds diminished in the bases. Prolonged expiratory wheezing scattered throughout. ABDOMEN: Soft, nontender . No guarding. no masses palpable. No ascites, No hepatosplenomegaly.Bowel sounds heard. LEGS: No edema. no swelling, +2 femorals PSYCHIATRY: Alert and oriented X3, mood and affect normal. NERVOUS SYSTEM: Cranial N 2-12 grossly normal. Moves all 4 limbs. Diffuse weakness, No focal deficits. Strength and sensation grossly intact.. Skin: no rashes - Labs CBC & Chem 7: 03/14/19 16:23 03/14/19 16:23 Labs: Abnormal Lab Results - Last 24 Hours (Table) 03/14/19 03/14/19 03/14/19 Range/Units 16:08 16:23 16:23 MCHC 30.3 L (31.0-37.0) g/dL Neutrophils # 8.0 H (1.3-7.7) k/uL VBG pCO2 65 H (37-51) mmHg VBG HCO3 34 H (24-28) mmol/L Potassium 5.2 H (3.5-5.1) mmol/L Chloride 97 L (98-107) mmol/L Carbon Dioxide 34 H (22-30) mmol/L Glucose 106 H (74-99) mg/dL Assessment and Plan Assessment: -Acute COPD exacerbation in a patient with severe, end-stage COPD. -Chronic hypoxic respiratory failure -Right upper lobe 15 mm speculated scar unchanged from prior CT -Significant PAD, claudication, status post arteriogram, PVR, final readings pending. Follow with vascular surgery as advised. -Severe protein calorie malnutrition, BMI 15.6 -Ongoing nicotine dependence,than [id number] -multiple osteoporotic thoracic compression fractures per CT -History of pulmonary embolism -history of severe peptic ulcer disease with a partial gastrectomy,vagotomy Plan:Continue current medication regime ,monitoring and symptomatic treatment. Continue on nebulized bronchodilators. Pulmonary consult in place, recommendations pending. Patient has minimal reserve ambulating a few steps with walker to bathroom, states he is opening with hospice care in the next 24 hrs. evaluated by vascular surgery with recommendations noted. Arteriogram results pending at this time. Prognosis guarded given multiple complex medical issues. Discharge planning in progress for tomorrow. The impression and plan of care has been dictated as directed. : I performed a history and examination of this patient, discussed the same with the dictator. I agree with the dictator's note ,documented as a scribe. Any additional findings or plans will be noted.
[2019-03-15 17:01] LABS: Glucose,Whole Blood 147 mg/dL (75-99)
[2019-03-15] MEDS: DEXAMETHASONE SOD PHOSPHATE 10 MG/ML 1 ML VIAL IV STA (17:58)
[2019-03-15] MEDS ORDERED: AZITHROMYCIN 500 MG TAB PO SCH (18:00)
[2019-03-15 20:18] LABS: Glucose,Whole Blood 133 mg/dL (75-99)
[2019-03-15] MEDS: SENNOSIDES 8.6 MG TAB PO SCH (20:49)
[2019-03-16 07:12] LABS: Glucose,Whole Blood 108 mg/dL (75-99)
[2019-03-16] MEDS: INSULIN ASPART (NovoLOG) 100 UNIT/ML VIAL SQ SCH ×2 (07:13→11:54)
[2019-03-16] MEDS: SYMBICORT 160-4.5 MCG INHALER INHALATION SCH (08:25)
[2019-03-16] MEDS: IPRATROPIUM-ALBUTEROL 3 ML NEB INHALATION SCH ×2 (08:25→11:51)
[2019-03-16] MEDS: APIXABAN 2.5 MG TABLET PO SCH (08:30)
[2019-03-16] MEDS: predniSONE 20 MG TAB PO SCH (08:30)
[2019-03-16] MEDS: PANTOPRAZOLE 40 MG TABLET PO SCH (08:30)
[2019-03-16] MEDS: MORPHINE SULFATE ER 30 MG TABLET PO SCH (08:31)
[2019-03-16 11:44] LABS: Glucose,Whole Blood 65 mg/dL (75-99)
[2019-03-16 11:52] LABS: Glucose,Whole Blood 85 mg/dL (75-99)
[2019-03-16 13:35] VITALS: BP 107/51; PULSE 80; RESP 17; TEMP 98.3
--- NOTE | 2019-03-16 15:40 | P.DS ---
Providers Date of admission: 03/14/19 16:59 Expected date of discharge: 03/16/19 Attending physician: Nadir Mason Consults: 03/14/19 16:55 Consult Physician Routine Consulting Provider: Sebastián Richardson Consult Reason/Comments: copd exacerbation Do you want consulting provider notified?: Yes 03/14/19 18:39 Consult Physician Routine Consulting Provider: John Nicolas Consult Reason/Comments: pad Do you want consulting provider notified?: Yes Primary care physician: [facility] Course: Final Diagnoses: -Acute COPD exacerbation in a patient with end-stage COPD. -Chronic hypoxic respiratory failure -Right upper lobe 15 mm speculated scar unchanged from prior CT -Significant PAD, claudication, status post arteriogram, PVR, final readings pending. Follow with vascular surgery as advised. -Severe protein calorie malnutrition, BMI 15.6 -Ongoing nicotine dependence,than [id number] -multiple osteoporotic thoracic compression fractures per CT -History of pulmonary embolism -history of severe peptic ulcer disease with a partial gastrectomy,vagotomy Hospital course:This is 60-year-old severe COPD, dyspnea, severe PAD, claudication, history of lung cancer. Arteriogram /PVR performed, final report pending. Evaluated by vascular surgery, recommendations noted including no surgical intervention. Pulmonary consult in place with recommendations noted. Ambulating to and from bathroom with walker, minimal to no reserve. Maintaining O2 sats in the 90s on 3 L nasal cannula.VSS. Evaluated by pulmonary and vascular surgery. Arteriogram results pending at this time. Patient is being discharged home and scheduled to open up with palliative/hospice care today. Cleared by all consults for discharge. Patient is being discharged home in stable condition with guarded prognosis. EXAM: GENERAL: Alert and oriented 3, respiratory effort increased HEENT: Conjunctivae normal. eyes normal. NECK: No JVD. No thyroid enlargement. No LNs CARDIOVASCULAR: S1, S2 regular.. No murmur RESPIRATION: Decreased air entry, Breath sounds diminished in the bases. Prolonged expiratory wheezing scattered throughout. ABDOMEN: Soft, nontender . No guarding. no masses palpable. Bowel sounds heard. LEGS: No edema. no swelling, +2 femorals PSYCHIATRY: Alert and oriented X3, mood and affect normal. NERVOUS SYSTEM: Cranial N 2-12 grossly normal. Moves all 4 limbs. Diffuse weakness, No focal deficits. The impression and plan of care has been dictated as directed. : I performed a history and examination of this patient, discussed the same with the dictator. I agree with the dictator's note ,documented as a scribe. Any additional findings or plans will be noted. Time taken: 35 minutes Patient Condition at Discharge: Stable Plan - Discharge Summary Discharge Rx Participant: Yes New Discharge Prescriptions: New Ipratropium-Albuterol Nebulize [Duoneb 0.5 mg-3 mg/3 ml Soln] 3 ml INHALATION RT-QID #120 ampul.neb predniSONE 10 mg PO DIRECTED #30 tab Azithromycin [Zithromax] 500 mg PO DAILY@1800 #5 tab Continue Cyanocobalamin [Vitamin B-12] 500 mcg PO DAILY Budesonide-Formot 160-4.5 Mcg [Symbicort 160-4.5 Mcg Inhaler] 2 puff INHALATION RT-BID Apixaban [Eliquis] 2.5 mg PO BID Sennosides [Senna] 17.2 mg PO HS Polyethylene Glycol 3350 [Miralax] 17 gm PO DAILY PRN PRN Reason: Constipation Omeprazole 40 mg PO BID Nicotine Polacrilex [Nicorette] 2 mg PO Q4H PRN PRN Reason: CRAVINGS LORazepam [Ativan] 1 mg PO Q8H PRN PRN Reason: Anxiety Albuterol Inhaler [Ventolin Hfa Inhaler] 2 puff INHALATION RT-Q6H PRN PRN Reason: Shortness Of Breath Morphine Sulfate ER [Ms Contin] 30 mg PO BID@0900,2100 HYDROcodone/APAP 10-325MG [[place] 10-325] 1 tab PO Q4HR PRN PRN Reason: Breakthrough Pain Discontinued Ranitidine HCl [Zantac] 150 mg PO BID Discharge Medication List Budesonide-Formot 160-4.5 Mcg [Symbicort 160-4.5 Mcg Inhaler] 2 puff INHALATION RT-BID 11/25/15 [History] Cyanocobalamin [Vitamin B-12] 500 mcg PO DAILY 11/25/15 [History] Apixaban [Eliquis] 2.5 mg PO BID 12/29/17 [History] Sennosides [Senna] 17.2 mg PO HS 12/29/17 [History] Albuterol Inhaler [Ventolin Hfa Inhaler] 2 puff INHALATION RT-Q6H PRN 03/14/19 [History] HYDROcodone/APAP 10-325MG [[place] 10-325] 1 tab PO Q4HR PRN 03/14/19 [History] LORazepam [Ativan] 1 mg PO Q8H PRN 03/14/19 [History] Morphine Sulfate ER [Ms Contin] 30 mg PO BID@0900,2100 03/14/19 [History] Nicotine Polacrilex [Nicorette] 2 mg PO Q4H PRN 03/14/19 [History] Omeprazole 40 mg PO BID 03/14/19 [History] Polyethylene Glycol 3350 [Miralax] 17 gm PO DAILY PRN 03/14/19 [History] Azithromycin [Zithromax] 500 mg PO DAILY@1800 #5 tab 03/16/19 [Rx] Ipratropium-Albuterol Nebulize [Duoneb 0.5 mg-3 mg/3 ml Soln] 3 ml INHALATION RT-QID #120 ampul.neb 03/16/19 [Rx] predniSONE 10 mg PO DIRECTED #30 tab 03/16/19 [Rx] Follow up Appointment(s)/Referral(s): Nadir Mason MD [Primary Care Provider] - 03/20/19 10:30 am John Nicolas MD [STAFF PHYSICIAN] - 03/29/19 11:00 am Patient Instructions/Handouts: COPD (Chronic Obstructive Pulmonary Disease) (DC) Activity/Diet/Wound Care/Special Instructions: Patient has nebulizer and albuterol solution at home. Resume albuterol nebulizer and Spiriva as previously ordered. Pt will need indigent funds at [place] for rx [facility] can be contacted at . Plans on 03-16 as follows:[facility]live from hospice to complete paperwork and open Pt to hospice between [phone]. Please call them for any questions. Discharge Disposition: HOME WITH HOSPICE
--- NOTE | 2019-03-21 09:54 | P.ARTDOP ---
Arterial Doppler LOWER EXTREMITY ARTERIAL DOPPLER: DATE OF SERVICE: 03/15/2019 Reason for study: PAD. Doppler waveforms: Multiphasic at the right femoral. Atypical at the right popliteal the left femoral. Monophasic at the left popliteal and below and below the right popliteal. Pulse volume recording: []. Pressure gradients: Gradients above the low thigh bilaterally and across the knee on the right. Ankle-brachial indices: 0.55 on the right and 0.38 on the left. Toe pressures: [] on the right, [] on the left Impression: Moderate right femoral popliteal disease. Moderate to severe left fem-pop disease with suspected left iliac component. Possible deterioration from study 3 months ago. Clinical correlation recommended.
== END 2019-03-16 14:50 | disposition home or self-care (01) | DRG 190 ==
LOC: EC 15:32 → 3NMEDONC 16:59
PROVIDERS: ADMIT Family Medicine; ATTEND Family Medicine
DX: J44.1 Chronic obstructive pulmonary disease with (acute) exacerbation (principal); E43 Unspecified severe protein-calorie malnutrition; Z68.1 Body mass index [BMI] 19.9 or less, adult; J96.11 Chronic respiratory failure with hypoxia; R64 Cachexia; M80.08XA Age-related osteoporosis with current pathological fracture, vertebra(e), initial encounter for fracture; I73.9 Peripheral vascular disease, unspecified; G89.4 Chronic pain syndrome; F17.210 Nicotine dependence, cigarettes, uncomplicated; K21.9 Gastro-esophageal reflux disease without esophagitis; F32.9 Major depressive disorder, single episode, unspecified; F41.9 Anxiety disorder, unspecified; J84.10 Pulmonary fibrosis, unspecified; Z79.01 Long term (current) use of anticoagulants; Z79.51 Long term (current) use of inhaled steroids; Z80.7 Family history of other malignant neoplasms of lymphoid, hematopoietic and related tissues; Z85.118 Personal history of other malignant neoplasm of bronchus and lung; Z86.711 Personal history of pulmonary embolism; Z87.11 Personal history of peptic ulcer disease; Z90.3 Acquired absence of stomach [part of]; Z99.81 Dependence on supplemental oxygen; Z79.899 Other long term (current) drug therapy; Z88.8 Allergy status to other drugs, medicaments and biological substances; Z90.49 Acquired absence of other specified parts of digestive tract; Z80.8 Family history of malignant neoplasm of other organs or systems
CPT/HCPCS: 36415; 71045; 71260; 80053; 82803; 83735; 84484; 85025; 85610; 85730; 93923; 94640; 94644; 94760; 96361; 96374; 99285

== ENCOUNTER → 2019-03-14 | Outpatient (CLI) | payer MEDICARE, OTHER | END | disposition home or self-care (01) | LOC: RADUSWWP 14:38 | PROVIDERS: ATTEND Family Medicine | DX: Z53.9 Procedure and treatment not carried out, unspecified reason (principal) ==

== ENCOUNTER 2019-07-11 10:01 | Inpatient (IN) | payer MEDICARE, OTHER ==
[2019-07-11] MEDS ORDERED: IPRATROPIUM-ALBUTEROL 3 ML NEB INHALATION PRN (13:41)
[2019-07-11] MEDS ORDERED: HYDROcodone/APAP 10-325MG 1 EACH TAB PO PRN (13:44)
[2019-07-11] MEDS ORDERED: LORazepam 1 MG TAB PO PRN (13:44)
[2019-07-11] MEDS: methylPREDNISolone SOD SUCCI 125 MG/2 ML VIAL IV SCH ×2 (14:34→17:53)
[2019-07-11 15:47] LABS: Basophils % (A) 0 %; Eosinophils % (A) 0 %; HCT 41.2 % (39.0-53.0); HGB 12.5 gm/dL (13.0-17.5); Hypochromasia Slight; Lymphocytes # (A) 0.8 k/uL (1.0-4.8); Lymphocytes % (A) 4 %; MCH 28.6 pg (25.0-35.0); MCHC 30.4 g/dL (31.0-37.0); Mean Platelet Volume 7.3; Monocytes # (A) 0.9 k/uL (0-1.0); Monocytes % (A) 5 %; Neutrophils # (A) 17.3 k/uL (1.3-7.7); Neutrophils % (A) 90 %; Platelet Count 488 k/uL (150-450); RBC 4.39 m/uL (4.30-5.90); RDW 13.1 % (11.5-15.5); WBC 19.2 k/uL (3.8-10.6)
[2019-07-11 15:58] LABS: African American GFR (CKD) >90 (>60 ml/min/1.73 sqM); Anion Gap 7 mmol/L; Blood Urea Nitrogen 25 mg/dL (9-20); Calcium 8.4 mg/dL (8.4-10.2); Carbon Dioxide 32 mmol/L (22-30); Chloride 95 mmol/L (98-107); Glucose 109 mg/dL (74-99); Non-African American GFR(CKD) >90 (>60 ml/min/1.73 sqM); Potassium 4.8 mmol/L (3.5-5.1); Sodium 134 mmol/L (137-145)
[2019-07-11] MEDS: IPRATROPIUM-ALBUTEROL 3 ML NEB INHALATION SCH ×2 (15:58→20:05)
[2019-07-11 17:02] LABS: Glucose,Whole Blood 197 mg/dL (75-99)
[2019-07-11] MEDS: INSULIN ASPART (NovoLOG) 100 UNIT/ML VIAL SQ SCH ×2 (17:54→22:07)
[2019-07-11] MEDS: PANTOPRAZOLE 40 MG TABLET PO SCH (17:56)
[2019-07-11] MEDS: SYMBICORT 160-4.5 MCG INHALER INHALATION SCH (20:05)
[2019-07-11 20:16] LABS: Glucose,Whole Blood 151 mg/dL (75-99)
[2019-07-11] MEDS: SENNOSIDES 8.6 MG TAB PO SCH (22:06)
[2019-07-11] MEDS: APIXABAN 2.5 MG TABLET PO SCH (22:06)
[2019-07-11] MEDS: MORPHINE SULFATE ER 30 MG TABLET PO SCH (22:06)
[2019-07-12] MEDS: methylPREDNISolone SOD SUCCI 125 MG/2 ML VIAL IV SCH ×4 (00:52→17:25)
[2019-07-12] MEDS ORDERED: RX INFO: IV CONTRAST WAS GIVEN 1 EACH MISC MISCELLANE PRN (06:54)
[2019-07-12 07:13] LABS: Glucose,Whole Blood 134 mg/dL (75-99)
[2019-07-12] MEDS: PANTOPRAZOLE 40 MG TABLET PO SCH ×2 (07:16→17:26)
[2019-07-12] MEDS: MORPHINE SULFATE ER 30 MG TABLET PO SCH ×2 (07:16→21:09)
[2019-07-12] MEDS: APIXABAN 2.5 MG TABLET PO SCH ×2 (07:16→21:09)
[2019-07-12] MEDS: CYANOCOBALAMIN 500 MCG TAB PO SCH (07:16)
[2019-07-12] MEDS: PIPERACILLIN-TAZOBACTAM 3.375 GM in SODIUM CHLORIDE 0.9% 100 ML IVPB SCH ×2 (07:17→16:38)
[2019-07-12] MEDS: INSULIN ASPART (NovoLOG) 100 UNIT/ML VIAL SQ SCH ×4 (07:56→21:09)
--- NOTE | 2019-07-12 07:57 | XR ---
EXAMINATION TYPE: XR chest 2V DATE OF EXAM: 07/11/2019 COMPARISON: Prior chest x-ray 03/14/2019 HISTORY: Shortness of breath 2 views of the chest There is abnormal increased attenuation in the right upper lobe. Prominence of interstitium and possi ble mixed airspace disease present also in the right lower lung. Prominent lung volumes suggest under lying COPD. Prominent pulmonary artery is again seen suggesting pulmonary artery hypertension. Postop changes are noted near the gastroesophageal junction. The aorta is dense. Heart is small. No evident pneumothorax. No pleural effusion identified. IMPRESSION: Correlate for pneumonia, follow-up to resolution recommended to exclude underlying mass.
--- NOTE | 2019-07-12 08:17 | CT ---
EXAMINATION TYPE: CT chest w con DATE OF EXAM: 07/12/2019 COMPARISON: Prior chest x-ray 07/11/2019, CT 03/14/2019 HISTORY: Dyspnea, COPD CT DLP: 138.40 mGycm Automated exposure control for dose reduction was used. CONTRAST: CT scan of the chest is performed with IV Contrast, patient injected with 100 ml mL of Isovue 300. FINDINGS: LUNGS: Abnormal increased density with air bronchograms noted at the right upper lobe towards the ape x and posteriorly. There is underlying extensive emphysematous change. Abnormal density also present in the right lower lobe with associated air bronchograms. Minimal right pleural effusion. Prominence of interstitium and airspace disease also present in the right middle lobe. MEDIASTINUM: There is right hilar adenopathy. Question some subcarinal adenopathy. No pericardial ef fusion is seen. There are coronary artery calcifications. The heart is small. Postop change noted th e gastroesophageal junction. AORTA: Atheromatous changes are present. No evident aneurysm. OTHER: No additional significant abnormality is seen. IMPRESSION: Multi lobar pneumonia, follow-up to resolution recommended. Postop changes and emphysema . Coronary artery disease.
[2019-07-12 08:39] LABS: African American GFR (CKD) >90 (>60 ml/min/1.73 sqM); Anion Gap 8 mmol/L; Blood Urea Nitrogen 22 mg/dL (9-20); Calcium 8.1 mg/dL (8.4-10.2); Carbon Dioxide 27 mmol/L (22-30); Chloride 99 mmol/L (98-107); Glucose 116 mg/dL (74-99); Non-African American GFR(CKD) >90 (>60 ml/min/1.73 sqM); Potassium 4.6 mmol/L (3.5-5.1); Sodium 134 mmol/L (137-145)
[2019-07-12] MEDS: IPRATROPIUM-ALBUTEROL 3 ML NEB INHALATION SCH ×4 (08:55→19:46)
[2019-07-12] MEDS: SYMBICORT 160-4.5 MCG INHALER INHALATION SCH ×2 (08:55→19:46)
[2019-07-12 09:57] LABS: Basophils % (A) 0 %; Eosinophils % (A) 0 %; HCT 35.1 % (39.0-53.0); HGB 10.8 gm/dL (13.0-17.5); Hypochromasia Moderate; Lymphocytes # (A) 0.4 k/uL (1.0-4.8); Lymphocytes % (A) 3 %; MCHC 30.7 g/dL (31.0-37.0); MCV 94.6 fL (80.0-100.0); Mean Platelet Volume 9.1; Monocytes # (A) 0.3 k/uL (0-1.0); Monocytes % (A) 2 %; Neutrophils # (A) 14.5 k/uL (1.3-7.7); Neutrophils % (A) 94 %; Platelet Count 361 k/uL (150-450); RBC 3.71 m/uL (4.30-5.90); WBC 15.3 k/uL (3.8-10.6)
[2019-07-12 11:56] LABS: Glucose,Whole Blood 131 mg/dL (75-99)
[2019-07-12] MEDS ORDERED: VANCOMYCIN IV PER PHARMACY 1 EACH MISC MISCELLANE PRN (12:48)
[2019-07-12] MEDS ORDERED: VANCOMYCIN 750 MG in SODIUM CHLORIDE 0.9% 250 ML IVPB STA (12:48)
--- NOTE | 2019-07-12 13:11 | HP ---
HISTORY AND PHYSICAL CHIEF COMPLAINT: A 68-year-old white male came in to the hospital with cough, congestion, shortness of breath, failing outpatient treatment with antibiotics, steroids, updraft treatments. He is an end-stage COPD patient, developed significant cough, congestion, shortness of breath. Pulse oxing 2-4 L in the low 80s at which time he is admitted to the hospital and sent to the hospital and CAT scan shows community multilobular pneumonia. Start on IV Zosyn and vancomycin, pharmacy to dose. Pulmonary consult. IV steroids, updraft treatments. HOME MEDICATIONS: DuoNeb q.i.d., Senna, Ranitidine, Spiriva, omeprazole, MS Contin, Ativan for severe anxiety, [place] 10, vitamin B12, Symbicort, Eliquis, Ventolin HFA. PAST MEDICAL HISTORY: A fibrillations, end-stage COPD, nicotine addiction, malnourishment, anxiety, depression, severe degenerative disc disease with neuropathy. 14 POINT REVIEW OF SYSTEMS: As mentioned above. Extreme weakness, fatigue, shortness of breath, dyspnea. Walks with a walker, extremely fatigued. O2 saturation is 94% on 3 L. Blood pressure 111/72, respiratory rate 18-22, pulse is 70s to 80s, temperature 97.9. CARDIOVASCULAR: S1-S2. LUNGS: Scattered rhonchi and wheeze x4. Decreased breath sounds x4. HEMATOLOGIC: Negative Homans. CONSTITUTIONAL: Thin, cachectic, acute respiratory distress. Darkened facies. Dry mucous membranes. Poor skin turgor. Inspiratory, expiratory wheeze he is near syncopal, sitting up in a chair. ASSESSMENT: At this time community-acquired pneumonia, end-stage chronic obstructive pulmonary disease with exacerbation, given acute on chronic hypercapnic respiratory failure. Degenerative disc disease, neuropathy, history of atrial fibrillation. Please see further orders. Nicotine addiction. Please see further orders on the chart. Broad- spectrum antibiotics, steroids, updrafts. MMODL / IJN: [id number] /
--- NOTE | 2019-07-12 15:21 | P.CNPUL ---
History of Present Illness Consult date: 07/12/19 Reason for consult: dyspnea, cough, COPD, hypoxemia, pneumonia Chief complaint: Shortness of breath cough and sputum production History of present illness: this is a well-known 68-year-old male with past medical history of 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 patient has been recently placed on foster care, due to respiratory problem patient was seen and evaluated by primary care's office advised to be admitted into the hospital patient has been outpatient treated with antibiotics and steroid without any significant improvement on 4 L his sats are in the low 80s patient underwent chest x-ray and CAT scan, x-ray shows significant right lower lobe disease likely pneumonia along with evidence of pulmonary hypertension, the computed tomography scan informants presence of right upper lobe pneumonia with extensive emphysematous changes, dense pneumonia seen on the lower lobe, neoplasm cannot be excluded Review of Systems All systems: negative Past Medical History Past Medical History: Asthma, COPD, Deep Vein Thrombosis (DVT), GERD/Reflux, Pneumonia, Pulmonary Embolus (PE), Respiratory Disorder, Vascular Disorder Additional Past Medical History / Comment(s): End stage COPD, chronic hypoxic respiratory failure, O2 at 4L/NC ATC, R upper lobe spiculating scar, bronchitis, R pulmonary embolism, bilateral lower leg DVTs, PAD-pt recently told he needed surgery but was not a candidate d/t lung disease, neuropathy bilateral feet/legs, pt states he was told he had an EKG that indicated he had had a ID at some time, multiple oseoporotic thracic compression fractures, chronic chest pain/worse on R side, severe PUD with partial gastrectomy/vagotomy, gastroparesis, diverticulitis, hepatitis C exposure but pt tested negative, constipation. History of Any Multi-Drug Resistant Organisms: None Reported Past Surgical History: Appendectomy Additional Past Surgical History / Comment(s): Partial gastrectomy/partial vagotomy/teminal vagotomy/Billroth's procedure, EGDs, colonoscopy, appendectomy but appendix was healthy-had gangrenous fat removed with appendix, arteriogram/PVR Past Anesthesia/Blood Transfusion Reactions: No Reported Reaction Smoking Status: Former smoker - Past Family History Mother Additional Family Medical History / Comment(s): Mother had some sort of brain surgery and . Pt unsure if surgery was for an aneurysm or mass. Father History Unknown: Yes Family Medical History: Cancer Additional Family Medical History / Comment(s): lymphoma Medications and Allergies Home Medications Medication Instructions Recorded Confirmed Type Budesonide-Formot 160-4.5 Mcg 2 puff INHALATION RT-BID 11/25/15 07/11/19 History [Symbicort 160-4.5 Mcg Inhaler] Cyanocobalamin [Vitamin B-12] 500 mcg PO DAILY 11/25/15 07/11/19 History Apixaban [Eliquis] 2.5 mg PO BID 12/29/17 07/11/19 History Sennosides [Senna] 17.2 mg PO HS 12/29/17 07/11/19 History Albuterol Inhaler [Ventolin Hfa 2 puff INHALATION RT-Q6H PRN 03/14/19 07/11/19 History Inhaler] HYDROcodone/APAP 10-325MG [[place] 1 tab PO Q4HR PRN 03/14/19 07/11/19 History 10-325] LORazepam [Ativan] 1 mg PO Q6H PRN 03/14/19 07/11/19 History Morphine Sulfate ER [Ms Contin] 30 mg PO BID@0900,2100 03/14/19 07/11/19 History Omeprazole 40 mg PO BID 03/14/19 07/11/19 History Ipratropium-Albuterol Nebulize 3 ml INHALATION RT-Q4H PRN 07/11/19 07/11/19 History [Duoneb 0.5 mg-3 mg/3 ml Soln] Ranitidine HCl 150 mg PO BID 07/11/19 07/11/19 History Tiotropium [place] [Spiriva] 1 cap INHALATION DAILY 07/11/19 07/11/19 History Allergies Allergy/AdvReac Type Severity Reaction Status Date / Time theophylline Allergy Rash/Hives Verified 07/11/19 12:32 metaproterenol sulfate AdvReac shaking Verified 07/11/19 12:32 [From Alupent] Physical Exam Vitals: Vital Signs Temp Pulse Pulse Resp BP Pulse Ox 07/12/19 12:50 84 07/12/19 12:35 92 07/12/19 09:10 84 07/12/19 08:55 84 07/12/19 05:04 97.9 F 74 18 111/72 94 L 07/11/19 22:00 97.8 F 84 16 100/59 95 07/11/19 20:15 81 16 07/11/19 20:05 80 16 07/11/19 16:07 82 20 07/11/19 15:58 80 20 Intake and Output 07/12/19 07/12/19 07/12/19 06:59 14:59 22:59 Output Total 600 Balance -600 Output: Urine 600 Other: # Voids 0 Weight 43.2 kg 43.2 kg - Constitutional General appearance: disheveled, mild distress - EENT Eyes: EOMI, PERRLA, poor dentition, normal appearance Ears: bilateral: normal - Neck Neck: normal ROM Carotids: bilateral: upstroke normal Thyroid: bilateral: normal size - Respiratory Respiratory: bilateral: diminished, rales, rhonchi, wheezing, prolonged expiration - Cardiovascular Rhythm: regular Heart sounds: normal: S1, S2 - Gastrointestinal General gastrointestinal: decreased bowel sounds, soft - Neurologic Neurologic: CNII-XII intact - Musculoskeletal Musculoskeletal: gait normal, generalized weakness, strength equal bilaterally - Psychiatric Psychiatric: A&O x's 3, appropriate affect, intact judgment & insight Results - Laboratory Findings CBC and BMP: 07/12/19 07:56 07/12/19 07:56 PT/INR, D-dimer D-Dimer 5.21 mg/L FEU (<0.60) H 07/12/19 07:56 Abnormal lab findings: Abnormal Labs 07/11/19 07/11/19 07/11/19 14:50 14:50 16:56 WBC 19.2 H RBC Hgb 12.5 L Hct MCHC 30.4 L Plt Count 488 H Neutrophils # 17.3 H Lymphocytes # 0.8 L D-Dimer Sodium 134 L Chloride 95 L Carbon Dioxide 32 H BUN 25 H Creatinine Glucose 109 H POC Glucose (mg/dL) 197 H Plasma Lactic Acid Calin Calcium 07/11/19 07/12/19 07/12/19 20:13 07:10 07:56 WBC 15.3 H RBC 3.71 L Hgb 10.8 L Hct 35.1 L MCHC 30.7 L Plt Count Neutrophils # 14.5 H Lymphocytes # 0.4 L D-Dimer Sodium Chloride Carbon Dioxide BUN Creatinine Glucose POC Glucose (mg/dL) 151 H 134 H Plasma Lactic Acid Calin Calcium 07/12/19 07/12/19 07/12/19 07:56 07:56 07:56 WBC RBC Hgb Hct MCHC Plt Count Neutrophils # Lymphocytes # D-Dimer 5.21 H Sodium 134 L Chloride Carbon Dioxide BUN 22 H Creatinine 0.57 L Glucose 116 H POC Glucose (mg/dL) Plasma Lactic Acid Calin 2.4 H* Calcium 8.1 L 07/12/19 07/12/19 11:54 12:21 WBC RBC Hgb Hct MCHC Plt Count Neutrophils # Lymphocytes # D-Dimer Sodium Chloride Carbon Dioxide BUN Creatinine Glucose POC Glucose (mg/dL) 131 H Plasma Lactic Acid Calin 4.0 H* Calcium - Diagnostic Findings Chest x-ray: report reviewed, image reviewed CT scan - chest: report reviewed, image reviewed Assessment and Plan Assessment: acute on chronic hypoxic respiratory failure Extensive right-sided pneumonia with air bronchogram, neoplasm cannot be ruled out but however less likely Atrial fibrillation Chronic neuropathy Severe degree of degenerative joint disease of spine Cachexia and protein calorie malnourishment salt severe category Plan: agree with broad-spectrum antibiotics Breathing treatments IV steroids Continue home medications Bronchoscopy cannot be performed at this time given the status, we'll observe him closely with serial radiographic studies to document resolution of pneumonia further recommendations pending plan of care as per clinical response of the patient Time with Patient: Greater than 30
[2019-07-12 16:35] LABS: Glucose,Whole Blood 166 mg/dL (75-99)
[2019-07-12 20:25] LABS: Glucose,Whole Blood 176 mg/dL (75-99)
[2019-07-12] MEDS: SENNOSIDES 8.6 MG TAB PO SCH (21:09)
[2019-07-12] MEDS: VANCOMYCIN 750 MG in SODIUM CHLORIDE 0.9% 250 ML IVPB SCH (22:46)
[2019-07-13] MEDS: methylPREDNISolone SOD SUCCI 125 MG/2 ML VIAL IV SCH ×4 (00:13→17:50)
[2019-07-13] MEDS: PIPERACILLIN-TAZOBACTAM 3.375 GM in SODIUM CHLORIDE 0.9% 100 ML IVPB SCH ×3 (00:23→17:51)
[2019-07-13 06:04] LABS: Basophils % (A) 0 %; Eosinophils % (A) 0 %; HCT 32.2 % (39.0-53.0); HGB 9.8 gm/dL (13.0-17.5); Hypochromasia Slight; Lymphocytes # (A) 0.4 k/uL (1.0-4.8); Lymphocytes % (A) 2 %; MCH 28.2 pg (25.0-35.0); MCHC 30.4 g/dL (31.0-37.0); MCV 92.8 fL (80.0-100.0); Mean Platelet Volume 7.3; Monocytes # (A) 0.4 k/uL (0-1.0); Monocytes % (A) 2 %; Neutrophils # (A) 19.3 k/uL (1.3-7.7); Neutrophils % (A) 95 %; Platelet Count 432 k/uL (150-450); RBC 3.46 m/uL (4.30-5.90); RDW 13.3 % (11.5-15.5); WBC 20.2 k/uL (3.8-10.6)
[2019-07-13 06:13] LABS: ALT 41 U/L (4-49); AST 43 U/L (17-59); African American GFR (CKD) >90 (>60 ml/min/1.73 sqM); Albumin 2.3 g/dL (3.5-5.0); Alkaline Phosphatase 54 U/L (38-126); Anion Gap 5 mmol/L; Blood Urea Nitrogen 24 mg/dL (9-20); Calcium 8.2 mg/dL (8.4-10.2); Carbon Dioxide 28 mmol/L (22-30); Chloride 103 mmol/L (98-107); Glucose 111 mg/dL (74-99); Non-African American GFR(CKD) >90 (>60 ml/min/1.73 sqM); Potassium 5.2 mmol/L (3.5-5.1); Sodium 136 mmol/L (137-145); Total Bilirubin 0.3 mg/dL (0.2-1.3); Total Protein 5.2 g/dL (6.3-8.2)
[2019-07-13] MEDS: IPRATROPIUM-ALBUTEROL 3 ML NEB INHALATION SCH ×4 (07:08→19:41)
[2019-07-13] MEDS: SYMBICORT 160-4.5 MCG INHALER INHALATION SCH ×2 (07:12→19:41)
[2019-07-13 07:16] LABS: Glucose,Whole Blood 103 mg/dL (75-99)
[2019-07-13] MEDS: INSULIN ASPART (NovoLOG) 100 UNIT/ML VIAL SQ SCH ×4 (08:18→20:03)
[2019-07-13] MEDS: MORPHINE SULFATE ER 30 MG TABLET PO SCH ×2 (08:28→19:56)
[2019-07-13] MEDS: APIXABAN 2.5 MG TABLET PO SCH ×2 (08:29→19:56)
[2019-07-13] MEDS: PANTOPRAZOLE 40 MG TABLET PO SCH ×2 (08:29→17:51)
[2019-07-13] MEDS: CYANOCOBALAMIN 500 MCG TAB PO SCH (08:29)
--- NOTE | 2019-07-13 11:36 | P.PN ---
Subjective Progress Note Date: 07/13/19 Principal diagnosis: acute on chronic hypoxic respiratory failure Extensive right-sided pneumonia with air bronchogram, neoplasm cannot be ruled out but however less likely Atrial fibrillation Chronic neuropathy Severe degree of degenerative joint disease of spine Cachexia and protein calorie malnourishment of severe category 07/13/2019, patient seen eval examined during the rounds labs reviewed medications reviewed patient is still have ongoing cough congestion shortness of breath symptoms slightly better chest x-ray and CAT scan finding reviewed with the patient in length this is a well-known 68-year-old male with past medical history of 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 patient has been recently placed on foster care, due to respiratory problem patient was seen and evaluated by primary care's office advised to be admitted into the hospital patient has been outpatient treated with antibiotics and steroid without any s ignificant improvement on 4 L his sats are in the low 80s patient underwent chest x-ray and CAT scan, x-ray shows significant right lower lobe disease likely pneumonia along with evidence of pulmonary hypertension, the computed tomography scan informants presence of right upper lobe pneumonia with extensive emphysematous changes, dense pneumonia seen on the lower lobe, neoplasm cannot be excluded Objective - Vital Signs Vital signs: Vital Signs Temp 97.5 F L 07/13/19 05:50 Pulse 74 07/13/19 11:28 Resp 16 07/13/19 05:50 BP 132/60 07/13/19 05:50 Pulse Ox 98 07/13/19 05:50 Intake & Output 07/12/19 07/13/19 07/13/19 18:59 06:59 18:59 Intake Total 480 Output Total 600 625 Balance -120 -625 Weight 43.2 kg 46.5 kg Intake: Oral 480 Output: Urine 600 625 Other: Voiding Method Urinal - Exam - Constitutional General appearance: disheveled, mild distress - EENT Eyes: EOMI, PERRLA, poor dentition, normal appearance Ears: bilateral: normal - Neck Neck: normal ROM Carotids: bilateral: upstroke normal Thyroid: bilateral: normal size - Respiratory Respiratory: bilateral: diminished, rales, rhonchi, wheezing, prolonged expiration - Cardiovascular Rhythm: regular Heart sounds: normal: S1, S2 - Gastrointestinal General gastrointestinal: decreased bowel sounds, soft - Neurologic Neurologic: CNII-XII intact - Musculoskeletal Musculoskeletal: gait normal, generalized weakness, strength equal bilaterally - Psychiatric Psychiatric: A&O x's 3, appropriate affect, intact judgment & insight - Labs CBC & Chem 7: 07/13/19 05:46 07/13/19 05:46 Labs: Abnormal Lab Results - Last 24 Hours (Table) 07/12/19 07/12/19 07/12/19 Range/Units 11:54 12:21 16:20 WBC (3.8-10.6) k/uL RBC (4.30-5.90) m/uL Hgb (13.0-17.5) gm/dL Hct (39.0-53.0) % MCHC (31.0-37.0) g/dL Neutrophils # (1.3-7.7) k/uL Lymphocytes # (1.0-4.8) k/uL Sodium (137-145) mmol/L Potassium (3.5-5.1) mmol/L BUN (9-20) mg/dL Creatinine (0.66-1.25) mg/dL Glucose (74-99) mg/dL POC Glucose (mg/dL) 131 H (75-99) mg/dL Plasma Lactic Acid Calin 4.0 H* 5.1 H* (0.7-2.0) mmol/L Calcium (8.4-10.2) mg/dL Total Protein (6.3-8.2) g/dL Albumin (3.5-5.0) g/dL 07/12/19 07/12/19 07/12/19 Range/Units 16:34 20:23 20:25 WBC (3.8-10.6) k/uL RBC (4.30-5.90) m/uL Hgb (13.0-17.5) gm/dL Hct (39.0-53.0) % MCHC (31.0-37.0) g/dL Neutrophils # (1.3-7.7) k/uL Lymphocytes # (1.0-4.8) k/uL Sodium (137-145) mmol/L Potassium (3.5-5.1) mmol/L BUN (9-20) mg/dL Creatinine (0.66-1.25) mg/dL Glucose (74-99) mg/dL POC Glucose (mg/dL) 166 H 176 H (75-99) mg/dL Plasma Lactic Acid Calin 4.2 H* (0.7-2.0) mmol/L Calcium (8.4-10.2) mg/dL Total Protein (6.3-8.2) g/dL Albumin (3.5-5.0) g/dL 07/13/19 07/13/19 07/13/19 Range/Units 01:09 05:46 05:46 WBC 20.2 H (3.8-10.6) k/uL RBC 3.46 L (4.30-5.90) m/uL Hgb 9.8 L (13.0-17.5) gm/dL Hct 32.2 L (39.0-53.0) % MCHC 30.4 L (31.0-37.0) g/dL Neutrophils # 19.3 H (1.3-7.7) k/uL Lymphocytes # 0.4 L (1.0-4.8) k/uL Sodium 136 L (137-145) mmol/L Potassium 5.2 H (3.5-5.1) mmol/L BUN 24 H (9-20) mg/dL Creatinine 0.63 L (0.66-1.25) mg/dL Glucose 111 H (74-99) mg/dL POC Glucose (mg/dL) (75-99) mg/dL Plasma Lactic Acid Calin 2.6 H* (0.7-2.0) mmol/L Calcium 8.2 L (8.4-10.2) mg/dL Total Protein 5.2 L (6.3-8.2) g/dL Albumin 2.3 L (3.5-5.0) g/dL 07/13/19 07/13/19 Range/Units 05:46 07:07 WBC (3.8-10.6) k/uL RBC (4.30-5.90) m/uL Hgb (13.0-17.5) gm/dL Hct (39.0-53.0) % MCHC (31.0-37.0) g/dL Neutrophils # (1.3-7.7) k/uL Lymphocytes # (1.0-4.8) k/uL Sodium (137-145) mmol/L Potassium (3.5-5.1) mmol/L BUN (9-20) mg/dL Creatinine (0.66-1.25) mg/dL Glucose (74-99) mg/dL POC Glucose (mg/dL) 103 H (75-99) mg/dL Plasma Lactic Acid Calin 2.6 H* (0.7-2.0) mmol/L Calcium (8.4-10.2) mg/dL Total Protein (6.3-8.2) g/dL Albumin (3.5-5.0) g/dL Microbiology - Last 24 Hours (Table) 07/12/19 07:56 Blood Culture - Preliminary Blood No Growth after 24 hours 07/12/19 19:57 Gram Stain - Preliminary Sputum Sputum Culture - Preliminary Assessment and Plan Assessment: acute on chronic hypoxic respiratory failure Extensive right-sided pneumonia with air bronchogram, neoplasm cannot be ruled out but however less likely Atrial fibrillation Chronic neuropathy Severe degree of degenerative joint disease of spine Cachexia and protein calorie malnourishment salt severe category Plan: Continue broad-spectrum antibiotics Breathing treatments IV steroids Continue home medications Bronchoscopy cannot be performed at this time given the status, we'll observe him closely with serial radiographic studies to document resolution of pneumonia further recommendations pending plan of care as per clinical response of the patient Time with Patient: Greater than 30
[2019-07-13] MEDS: VANCOMYCIN 750 MG in SODIUM CHLORIDE 0.9% 250 ML IVPB SCH ×2 (12:34→22:30)
--- NOTE | 2019-07-13 15:59 | P.PN ---
Subjective Progress Note Date: 07/13/19 since 68-year-old gentleman admitted with acute on chronic respiratory failure, extensive right-sided pneumonia, possible neoplasm and multiple other medical issues.continues on 4 L nasal cannula (patient's baseline),with breathing slowly improving. Reports productive cough with thick dark yellow sputum.maintained on vancomycin, Zosyn, nebulized bronchodilators, steroids.afebrile.good diet intake, consuming 100% with no nausea vomiting or diarrhea. Denies abdominal pain. Consuming protein supplements as well. Objective - Vital Signs Vital signs: Vital Signs Temp 97.5 F L 07/13/19 05:50 Pulse 74 07/13/19 11:28 Resp 16 07/13/19 05:50 BP 132/60 07/13/19 05:50 Pulse Ox 98 07/13/19 05:50 Intake & Output 07/12/19 07/13/19 07/13/19 18:59 06:59 18:59 Intake Total 480 Output Total 600 625 Balance -120 -625 Weight 43.2 kg 46.5 kg Intake: Oral 480 Output: Urine 600 625 Other: Voiding Method Urinal - Exam PHYSICAL EXAM: VITAL SIGNS: [as above] GENERAL: sitting up in bed, no acute distress HEENT: Conjunctivae normal. eyes normal. oral mucosa moist NECK: No JVD. No thyroid enlargement. No LNs CARDIOVASCULAR: S1, S2 regular.. No murmur RESPIRATION: Breath sounds diminished in the bases. scattered rhonchi with expiratory wheezing. ABDOMEN: Soft, nontender . No guarding. no masses palpable. No ascites, No hepatosplenomegaly.Bowel sounds heard. LEGS: No edema. no swelling PSYCHIATRY: Alert and oriented X3, mood and affect normal. NERVOUS SYSTEM: Cranial N 2-12 grossly normal. Moves all 4 limbs. Diffuse weakness No focal deficits. Strength and sensation grossly intact. Skin: no lesions, no rash - Labs CBC & Chem 7: 07/13/19 05:46 07/13/19 05:46 Labs: Abnormal Lab Results - Last 24 Hours (Table) 07/12/19 07/12/19 07/12/19 Range/Units 12:21 16:20 16:34 WBC (3.8-10.6) k/uL RBC (4.30-5.90) m/uL Hgb (13.0-17.5) gm/dL Hct (39.0-53.0) % MCHC (31.0-37.0) g/dL Neutrophils # (1.3-7.7) k/uL Lymphocytes # (1.0-4.8) k/uL Sodium (137-145) mmol/L Potassium (3.5-5.1) mmol/L BUN (9-20) mg/dL Creatinine (0.66-1.25) mg/dL Glucose (74-99) mg/dL POC Glucose (mg/dL) 166 H (75-99) mg/dL Plasma Lactic Acid Calin 4.0 H* 5.1 H* (0.7-2.0) mmol/L Calcium (8.4-10.2) mg/dL Total Protein (6.3-8.2) g/dL Albumin (3.5-5.0) g/dL 07/12/19 07/12/19 07/13/19 Range/Units 20:23 20:25 01:09 WBC (3.8-10.6) k/uL RBC (4.30-5.90) m/uL Hgb (13.0-17.5) gm/dL Hct (39.0-53.0) % MCHC (31.0-37.0) g/dL Neutrophils # (1.3-7.7) k/uL Lymphocytes # (1.0-4.8) k/uL Sodium (137-145) mmol/L Potassium (3.5-5.1) mmol/L BUN (9-20) mg/dL Creatinine (0.66-1.25) mg/dL Glucose (74-99) mg/dL POC Glucose (mg/dL) 176 H (75-99) mg/dL Plasma Lactic Acid Calin 4.2 H* 2.6 H* (0.7-2.0) mmol/L Calcium (8.4-10.2) mg/dL Total Protein (6.3-8.2) g/dL Albumin (3.5-5.0) g/dL 07/13/19 07/13/19 07/13/19 Range/Units 05:46 05:46 05:46 WBC 20.2 H (3.8-10.6) k/uL RBC 3.46 L (4.30-5.90) m/uL Hgb 9.8 L (13.0-17.5) gm/dL Hct 32.2 L (39.0-53.0) % MCHC 30.4 L (31.0-37.0) g/dL Neutrophils # 19.3 H (1.3-7.7) k/uL Lymphocytes # 0.4 L (1.0-4.8) k/uL Sodium 136 L (137-145) mmol/L Potassium 5.2 H (3.5-5.1) mmol/L BUN 24 H (9-20) mg/dL Creatinine 0.63 L (0.66-1.25) mg/dL Glucose 111 H (74-99) mg/dL POC Glucose (mg/dL) (75-99) mg/dL Plasma Lactic Acid Calin 2.6 H* (0.7-2.0) mmol/L Calcium 8.2 L (8.4-10.2) mg/dL Total Protein 5.2 L (6.3-8.2) g/dL Albumin 2.3 L (3.5-5.0) g/dL 07/13/19 Range/Units 07:07 WBC (3.8-10.6) k/uL RBC (4.30-5.90) m/uL Hgb (13.0-17.5) gm/dL Hct (39.0-53.0) % MCHC (31.0-37.0) g/dL Neutrophils # (1.3-7.7) k/uL Lymphocytes # (1.0-4.8) k/uL Sodium (137-145) mmol/L Potassium (3.5-5.1) mmol/L BUN (9-20) mg/dL Creatinine (0.66-1.25) mg/dL Glucose (74-99) mg/dL POC Glucose (mg/dL) 103 H (75-99) mg/dL Plasma Lactic Acid Calin (0.7-2.0) mmol/L Calcium (8.4-10.2) mg/dL Total Protein (6.3-8.2) g/dL Albumin (3.5-5.0) g/dL Microbiology - Last 24 Hours (Table) 07/12/19 07:56 Blood Culture - Preliminary Blood No Growth after 24 hours 07/12/19 19:57 Gram Stain - Preliminary Sputum Sputum Culture - Preliminary Assessment and Plan Assessment: acute community-acquired pneumonia,extensive right-sided pneumonia, possible neoplasm End-stage COPD acute on chronic hypercapnic, hypoxic respiratory failure, wears 4 L at home degenerative disc disease Chronic paroxysmal atrial fibrillation Neuropathy Nicotine dependence severe protein calorie malnourishment, BMI 15.6 Plan: Continue on current medication regime ,monitoring and symptomatic treatment.protein supplements between meals. Nebulized bronchodilators, steroids and antibiotics as ordered.cultures pending.follow closely with pulmonary. close monitoring of renal function, electrolytes with repeat labs ordered for a.m. Prognosis guarded given multiple complex medical issues. The impression and plan of care has been dictated as directed. : I performed a history and examination of this patient, discussed the same with the dictator. I agree with the dictator's note ,documented as a scribe. Any additional findings or plans will be noted.
[2019-07-13 17:08] LABS: Glucose,Whole Blood 133 mg/dL (75-99)
[2019-07-13] MEDS: SENNOSIDES 8.6 MG TAB PO SCH (19:56)
[2019-07-13 20:13] LABS: Glucose,Whole Blood 124 mg/dL (75-99)
[2019-07-14] MEDS: methylPREDNISolone SOD SUCCI 125 MG/2 ML VIAL IV SCH ×5 (00:37→23:28)
[2019-07-14] MEDS: PIPERACILLIN-TAZOBACTAM 3.375 GM in SODIUM CHLORIDE 0.9% 100 ML IVPB SCH ×4 (00:38→23:28)
[2019-07-14 07:14] LABS: Glucose,Whole Blood 115 mg/dL (75-99)
[2019-07-14] MEDS: IPRATROPIUM-ALBUTEROL 3 ML NEB INHALATION SCH ×4 (07:18→18:58)
[2019-07-14] MEDS: SYMBICORT 160-4.5 MCG INHALER INHALATION SCH ×2 (07:18→18:58)
[2019-07-14] MEDS: INSULIN ASPART (NovoLOG) 100 UNIT/ML VIAL SQ SCH ×4 (07:23→20:30)
[2019-07-14] MEDS: MORPHINE SULFATE ER 30 MG TABLET PO SCH ×2 (07:41→20:21)
[2019-07-14] MEDS: APIXABAN 2.5 MG TABLET PO SCH ×2 (07:42→20:22)
[2019-07-14] MEDS: PANTOPRAZOLE 40 MG TABLET PO SCH ×2 (07:42→17:37)
[2019-07-14] MEDS: CYANOCOBALAMIN 500 MCG TAB PO SCH (07:42)
[2019-07-14 07:53] LABS: Basophils % (A) 0 %; Eosinophils % (A) 0 %; HCT 31.9 % (39.0-53.0); Hypochromasia Slight; Lymphocytes # (A) 0.4 k/uL (1.0-4.8); Lymphocytes % (A) 2 %; MCH 28.6 pg (25.0-35.0); MCHC 31.4 g/dL (31.0-37.0); Monocytes # (A) 0.4 k/uL (0-1.0); Monocytes % (A) 2 %; Neutrophils % (A) 95 %; Platelet Count 456 k/uL (150-450); RDW 13.4 % (11.5-15.5); WBC 17.9 k/uL (3.8-10.6)
[2019-07-14 08:02] LABS: African American GFR (CKD) >90 (>60 ml/min/1.73 sqM); Anion Gap 5 mmol/L; Blood Urea Nitrogen 20 mg/dL (9-20); Calcium 8.2 mg/dL (8.4-10.2); Carbon Dioxide 27 mmol/L (22-30); Chloride 101 mmol/L (98-107); Glucose 99 mg/dL (74-99); Non-African American GFR(CKD) >90 (>60 ml/min/1.73 sqM); Potassium 5.1 mmol/L (3.5-5.1); Sodium 133 mmol/L (137-145)
--- NOTE | 2019-07-14 10:42 | P.PN ---
Subjective Progress Note Date: 07/14/19 Principal diagnosis: acute on chronic hypoxic respiratory failure Extensive right-sided pneumonia with air bronchogram, neoplasm cannot be ruled out but however less likely Atrial fibrillation Chronic neuropathy Severe degree of degenerative joint disease of spine Cachexia and protein calorie malnourishment of severe category 07/14/2019, patient seen eval examined during the rounds thick purulent sputum production is present cuff and shortness of breath is better breathing slightly improved patient remains on broad-spectrum antibiotics, we'll send a sputum for Gram stain and culture 07/13/2019, patient seen eval examined during the rounds labs reviewed medications reviewed patient is still have ongoing cough congestion shortness of breath symptoms slightly better chest x-ray and CAT scan finding reviewed with the patient in length this is a well-known 68-year-old male with past medical history of 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 patient has been recently placed on foster care, due to respiratory problem patient was seen and evaluated by primary care's office advised to be admitted into the hospital patient has been outpatient treated with antibiotics and steroid without any significant improvement on 4 L his sats are in the low 80s patient underwent chest x-ray and CAT scan, x-ray shows significant right lower lobe disease likely pneumonia along with evidence of pulmonary hypertension, the computed tomography scan informants presence of right upper lobe pneumonia with extensive emphysematous changes, dense pneumonia seen on the lower lobe, neoplasm cannot be excluded Objective - Vital Signs Vital signs: Vital Signs Temp 97.6 F 07/14/19 05:00 Pulse 76 07/14/19 07:37 Resp 20 07/14/19 05:00 BP 126/77 07/14/19 05:00 Pulse Ox 92 L 07/14/19 05:00 Intake & Output 07/13/19 07/14/19 07/14/19 18:59 06:59 18:59 Intake Total 850 Output Total 300 700 Balance -300 150 Weight 48.2 kg Intake: Intake, IV Titration 350 Amount Piperacillin-Tazobactam 3 100 .375 gm In Sodium Chloride 0.9% 100 ml @ 25 mls/hr IVPB Q8HR [facility] Rx# :[id number] Vancomycin 750 mg In 250 Sodium Chloride 0.9% 250 ml @ 125 mls/hr IVPB Q12H [facility] Rx#:[id number] Oral 500 Output: Urine 300 700 Other: Voiding Method Urinal Urinal # Voids 2 - Exam - Constitutional General appearance: disheveled, mild distress - EENT Eyes: EOMI, PERRLA, poor dentition, normal appearance Ears: bilateral: normal - Neck Neck: normal ROM Carotids: bilateral: upstroke normal Thyroid: bilateral: normal size - Respiratory Respiratory: bilateral: diminished, rales, rhonchi, wheezing, prolonged expiration - Cardiovascular Rhythm: regular Heart sounds: normal: S1, S2 - Gastrointestinal General gastrointestinal: decreased bowel sounds, soft - Neurologic Neurologic: CNII-XII intact - Musculoskeletal Musculoskeletal: gait normal, generalized weakness, strength equal bilaterally - Psychiatric Psychiatric: A&O x's 3, appropriate affect, intact judgment & insight - Labs CBC & Chem 7: 07/14/19 07:29 07/14/19 07:29 Labs: Abnormal Lab Results - Last 24 Hours (Table) 07/13/19 07/13/19 07/14/19 Range/Units 17:06 20:02 07:12 WBC (3.8-10.6) k/uL RBC (4.30-5.90) m/uL Hgb (13.0-17.5) gm/dL Hct (39.0-53.0) % Plt Count (150-450) k/uL Neutrophils # (1.3-7.7) k/uL Lymphocytes # (1.0-4.8) k/uL Sodium (137-145) mmol/L Creatinine (0.66-1.25) mg/dL POC Glucose (mg/dL) 133 H 124 H 115 H (75-99) mg/dL Calcium (8.4-10.2) mg/dL 07/14/19 07/14/19 Range/Units 07:29 07:29 WBC 17.9 H (3.8-10.6) k/uL RBC 3.50 L (4.30-5.90) m/uL Hgb 10.0 L (13.0-17.5) gm/dL Hct 31.9 L (39.0-53.0) % Plt Count 456 H (150-450) k/uL Neutrophils # 17.0 H (1.3-7.7) k/uL Lymphocytes # 0.4 L (1.0-4.8) k/uL Sodium 133 L (137-145) mmol/L Creatinine 0.59 L (0.66-1.25) mg/dL POC Glucose (mg/dL) (75-99) mg/dL Calcium 8.2 L (8.4-10.2) mg/dL Microbiology - Last 24 Hours (Table) 07/12/19 07:56 Blood Culture - Preliminary Blood No Growth after 48 hours 07/12/19 19:57 Gram Stain - Preliminary Sputum Sputum Culture - Preliminary Assessment and Plan Assessment: acute on chronic hypoxic respiratory failure Extensive right-sided pneumonia with air bronchogram, neoplasm cannot be ruled out but however less likely Atrial fibrillation Chronic neuropathy Severe degree of degenerative joint disease of spine Cachexia and protein calorie malnourishment salt severe category Plan: Continue broad-spectrum antibiotics Breathing treatments IV steroids Continue home medications Bronchoscopy cannot be performed at this time given the status, we'll observe him closely with serial radiographic studies to document resolution of pneumonia further recommendations pending plan of care as per clinical response of the patient
[2019-07-14 11:55] LABS: Glucose,Whole Blood 117 mg/dL (75-99)
[2019-07-14] MEDS: VANCOMYCIN 750 MG in SODIUM CHLORIDE 0.9% 250 ML IVPB SCH ×2 (12:01→19:41)
[2019-07-14 13:22] VITALS: BMI 16.1
[2019-07-14] MEDS ORDERED: BISACODYL 10 MG SUPP RECTAL STA (15:36)
[2019-07-14 17:15] LABS: Glucose,Whole Blood 96 mg/dL (75-99)
[2019-07-14] MEDS: SENNOSIDES 8.6 MG TAB PO SCH (20:22)
[2019-07-14 20:37] LABS: Glucose,Whole Blood 151 mg/dL (75-99)
--- NOTE | 2019-07-14 22:30 | PN ---
PROGRESS NOTE SUBJECTIVE: This 68-year-old white male, bilateral multilobular pneumonias, community-acquired pneumonia, COPD exacerbation, end-stage COPD, acute hypoxemic respiratory distress, slowly improving. Still has a lot of cough, congestion, nasal congestion. Cardiovascular S1-S2. Lungs decreased breath sounds x4. GI soft. Hematologic negative Homans. Integument: Dry skin turgor. Endocrinology: Low BMI. ASSESSMENT: 1. Bilateral multilobular pneumonia. 2. Community-acquired pneumonia. 3. Chronic obstructive pulmonary disease exacerbation. 4. Acute hypoxemic respiratory distress. Continue on broad-spectrum antibiotics. Await pulmonary recommendations and Infectious Disease. PT/OT. Continue IV steroids, updraft treatments. MMODL / IJN: [id number] /
[2019-07-15] MEDS: VANCOMYCIN 750 MG in SODIUM CHLORIDE 0.9% 250 ML IVPB SCH ×3 (03:37→20:14)
[2019-07-15 06:01] LABS: Glucose,Whole Blood 88 mg/dL (75-99)
[2019-07-15] MEDS: methylPREDNISolone SOD SUCCI 125 MG/2 ML VIAL IV SCH ×3 (06:12→16:27)
[2019-07-15 06:16] LABS: Basophils % (A) 0 %; Eosinophils % (A) 0 %; HCT 35.4 % (39.0-53.0); HGB 10.7 gm/dL (13.0-17.5); Hypochromasia Moderate; Lymphocytes # (A) 0.5 k/uL (1.0-4.8); Lymphocytes % (A) 3 %; MCH 28.6 pg (25.0-35.0); MCHC 30.2 g/dL (31.0-37.0); MCV 94.5 fL (80.0-100.0); Monocytes # (A) 0.5 k/uL (0-1.0); Monocytes % (A) 3 %; Neutrophils # (A) 16.2 k/uL (1.3-7.7); Neutrophils % (A) 94 %; Platelet Count 477 k/uL (150-450); RBC 3.75 m/uL (4.30-5.90); RDW 13.5 % (11.5-15.5); WBC 17.3 k/uL (3.8-10.6)
[2019-07-15 06:28] LABS: ALT 50 U/L (4-49); AST 32 U/L (17-59); African American GFR (CKD) >90 (>60 ml/min/1.73 sqM); Albumin 2.3 g/dL (3.5-5.0); Alkaline Phosphatase 56 U/L (38-126); Anion Gap 1 mmol/L; Blood Urea Nitrogen 19 mg/dL (9-20); Calcium 8.3 mg/dL (8.4-10.2); Carbon Dioxide 33 mmol/L (22-30); Chloride 101 mmol/L (98-107); Glucose 87 mg/dL (74-99); Non-African American GFR(CKD) >90 (>60 ml/min/1.73 sqM); Potassium 5.6 mmol/L (3.5-5.1); Sodium 135 mmol/L (137-145); Total Bilirubin 0.4 mg/dL (0.2-1.3); Total Protein 5.2 g/dL (6.3-8.2)
[2019-07-15] MEDS: INSULIN ASPART (NovoLOG) 100 UNIT/ML VIAL SQ SCH ×4 (06:35→20:39)
[2019-07-15] MEDS: IPRATROPIUM-ALBUTEROL 3 ML NEB INHALATION SCH ×4 (07:10→20:32)
[2019-07-15] MEDS: SYMBICORT 160-4.5 MCG INHALER INHALATION SCH ×2 (07:10→20:32)
[2019-07-15] MEDS: CYANOCOBALAMIN 500 MCG TAB PO SCH (08:34)
[2019-07-15] MEDS: PANTOPRAZOLE 40 MG TABLET PO SCH ×2 (08:34→16:27)
[2019-07-15] MEDS: APIXABAN 2.5 MG TABLET PO SCH ×2 (08:34→20:15)
[2019-07-15] MEDS: PIPERACILLIN-TAZOBACTAM 3.375 GM in SODIUM CHLORIDE 0.9% 100 ML IVPB SCH ×2 (09:17→16:14)
[2019-07-15] MEDS: MORPHINE SULFATE ER 30 MG TABLET PO SCH ×2 (09:17→20:15)
[2019-07-15 11:52] LABS: Glucose,Whole Blood 152 mg/dL (75-99)
--- NOTE | 2019-07-15 13:20 | P.PN ---
Subjective Progress Note Date: 07/15/19 Principal diagnosis: acute on chronic hypoxic respiratory failure Extensive right-sided pneumonia with air bronchogram, neoplasm cannot be ruled out but however less likely Atrial fibrillation Chronic neuropathy Severe degree of degenerative joint disease of spine Cachexia and protein calorie malnourishment of severe category 07/15/2019, patient seen eval examined during the rounds labs reviewed medications reviewed care plan discussed with the patient at length still having significant amount of cough and sputum production patient remains on oxygen get short of breath on minimal activity and exertion, will order chest x-ray were tomorrow to follow up on pneumonia continue antibiotics in the meantime 07/14/2019, patient seen eval examined during the rounds thick purulent sputum production is present cuff and shortness of breath is better breathing slightly improved patient remains on broad-spectrum antibiotics, we'll send a sputum for Gram stain and culture 07/13/2019, patient seen eval examined during the rounds labs reviewed medications reviewed patient is still have ongoing cough congestion shortness of breath symptoms slightly better chest x-ray and CAT scan finding reviewed with the patient in length this is a well-known 68-year-old male with past medical history of 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 patient has been recently placed on foster care, due to respiratory problem patient was seen and evaluated by primary care's office advised to be admitted into the hospital patient has been outpatient treated with antibiotics and steroid without any significant improvement on 4 L his sats are in the low 80s patient underwent chest x-ray and CAT scan, x-ray shows significant right lower lobe disease like ly pneumonia along with evidence of pulmonary hypertension, the computed tomography scan informants presence of right upper lobe pneumonia with extensive emphysematous changes, dense pneumonia seen on the lower lobe, neoplasm cannot be excluded Objective - Vital Signs Vital signs: Vital Signs Temp 97.7 F 07/15/19 04:58 Pulse 84 07/15/19 07:29 Resp 20 07/15/19 04:58 BP 133/71 07/15/19 04:58 Pulse Ox 93 L 07/15/19 04:58 Intake & Output 07/14/19 07/15/19 07/15/19 18:59 06:59 18:59 Intake Total 300 Output Total 700 Balance -700 300 Weight 48.2 kg 48.081 kg Intake: Oral 300 Output: Urine 700 Other: Voiding Method Urinal # Voids 4 1 # Bowel Movements 1 0 - Exam - Constitutional General appearance: disheveled, mild distress - EENT Eyes: EOMI, PERRLA, poor dentition, normal appearance Ears: bilateral: normal - Neck Neck: normal ROM Carotids: bilateral: upstroke normal Thyroid: bilateral: normal size - Respiratory Respiratory: bilateral: diminished, rales, rhonchi, wheezing, prolonged expiration - Cardiovascular Rhythm: regular Heart sounds: normal: S1, S2 - Gastrointestinal General gastrointestinal: decreased bowel sounds, soft - Neurologic Neurologic: CNII-XII intact - Musculoskeletal Musculoskeletal: gait normal, generalized weakness, strength equal bilaterally - Psychiatric Psychiatric: A&O x's 3, appropriate affect, intact judgment & insight - Labs CBC & Chem 7: 07/15/19 05:49 07/15/19 05:49 Labs: Abnormal Lab Results - Last 24 Hours (Table) 07/14/19 07/15/19 07/15/19 Range/Units 20:25 05:49 05:49 WBC 17.3 H (3.8-10.6) k/uL RBC 3.75 L (4.30-5.90) m/uL Hgb 10.7 L (13.0-17.5) gm/dL Hct 35.4 L (39.0-53.0) % MCHC 30.2 L (31.0-37.0) g/dL Plt Count 477 H (150-450) k/uL Neutrophils # 16.2 H (1.3-7.7) k/uL Lymphocytes # 0.5 L (1.0-4.8) k/uL Sodium 135 L (137-145) mmol/L Potassium 5.6 H (3.5-5.1) mmol/L Carbon Dioxide 33 H (22-30) mmol/L Creatinine 0.58 L (0.66-1.25) mg/dL POC Glucose (mg/dL) 151 H (75-99) mg/dL Calcium 8.3 L (8.4-10.2) mg/dL ALT 50 H (4-49) U/L Total Protein 5.2 L (6.3-8.2) g/dL Albumin 2.3 L (3.5-5.0) g/dL 07/15/19 Range/Units 11:45 WBC (3.8-10.6) k/uL RBC (4.30-5.90) m/uL Hgb (13.0-17.5) gm/dL Hct (39.0-53.0) % MCHC (31.0-37.0) g/dL Plt Count (150-450) k/uL Neutrophils # (1.3-7.7) k/uL Lymphocytes # (1.0-4.8) k/uL Sodium (137-145) mmol/L Potassium (3.5-5.1) mmol/L Carbon Dioxide (22-30) mmol/L Creatinine (0.66-1.25) mg/dL POC Glucose (mg/dL) 152 H (75-99) mg/dL Calcium (8.4-10.2) mg/dL ALT (4-49) U/L Total Protein (6.3-8.2) g/dL Albumin (3.5-5.0) g/dL Microbiology - Last 24 Hours (Table) 07/12/19 07:56 Blood Culture - Preliminary Blood No Growth after 72 hours 07/12/19 19:57 Gram Stain - Final Sputum Sputum Culture - Final Assessment and Plan Assessment: acute on chronic hypoxic respiratory failure Extensive right-sided pneumonia with air bronchogram, neoplasm cannot be ruled out but however less likely Atrial fibrillation Chronic neuropathy Severe degree of degenerative joint disease of spine Cachexia and protein calorie malnourishment salt severe category Plan: Continue broad-spectrum antibiotics Breathing treatments IV steroids Continue home medications repeat x-ray tomorrow Bronchoscopy cannot be performed at this time given the status, we'll observe him closely with serial radiographic studies to document resolution of pneumonia further recommendations pending plan of care as per clinical response of the patient Time with Patient: Greater than 30
[2019-07-15 17:04] LABS: Glucose,Whole Blood 115 mg/dL (75-99)
[2019-07-15] MEDS: SENNOSIDES 8.6 MG TAB PO SCH (20:15)
[2019-07-15 20:31] LABS: Glucose,Whole Blood 189 mg/dL (75-99)
[2019-07-16] MEDS: PIPERACILLIN-TAZOBACTAM 3.375 GM in SODIUM CHLORIDE 0.9% 100 ML IVPB SCH ×4 (00:06→23:59)
[2019-07-16] MEDS: methylPREDNISolone SOD SUCCI 125 MG/2 ML VIAL IV SCH ×3 (00:07→11:51)
--- NOTE | 2019-07-16 00:15 | PN ---
PROGRESS NOTE SUBJECTIVE: Followup bilateral pneumonia, community-acquired pneumonia, COPD exacerbation, large purulent phlegm still being produced. Cardiovascular S1-S2. Lungs wheezes, rhonchi x4. Hematology negative Homans. Psych fair mood and affect. ASSESSMENT: 1. Acute hypoxemic respiratory distress. 2. Bilateral pneumonias. 3. Community-acquired pneumonia. 4. Chronic obstructive pulmonary disease exacerbation. Broad-spectrum IV antibiotics. IV steroids, updraft treatments. Follow up in the next 24-48 hours. MMODL / IJN: [id number] /
[2019-07-16] MEDS: VANCOMYCIN 750 MG in SODIUM CHLORIDE 0.9% 250 ML IVPB SCH ×3 (03:31→18:00)
[2019-07-16] MEDS: INSULIN ASPART (NovoLOG) 100 UNIT/ML VIAL SQ SCH ×4 (07:01→21:33)
[2019-07-16 07:04] LABS: Glucose,Whole Blood 112 mg/dL (75-99)
[2019-07-16] MEDS: IPRATROPIUM-ALBUTEROL 3 ML NEB INHALATION SCH ×4 (07:17→19:35)
[2019-07-16] MEDS: SYMBICORT 160-4.5 MCG INHALER INHALATION SCH ×2 (07:17→19:35)
[2019-07-16] MEDS: PANTOPRAZOLE 40 MG TABLET PO SCH ×2 (08:58→17:08)
[2019-07-16] MEDS: MORPHINE SULFATE ER 30 MG TABLET PO SCH ×2 (08:58→20:51)
[2019-07-16] MEDS: APIXABAN 2.5 MG TABLET PO SCH ×2 (08:59→20:51)
[2019-07-16] MEDS: CYANOCOBALAMIN 500 MCG TAB PO SCH (08:59)
[2019-07-16] MEDS ORDERED: VANCOMYCIN TROUGH DUE 1 EACH MISC MISCELLANE ONE (10:00)
[2019-07-16 10:30] LABS: African American GFR (CKD) >90 (>60 ml/min/1.73 sqM); Non-African American GFR(CKD) >90 (>60 ml/min/1.73 sqM)
[2019-07-16 11:38] LABS: Glucose,Whole Blood 130 mg/dL (75-99)
--- NOTE | 2019-07-16 14:15 | P.PN ---
Subjective Progress Note Date: 07/16/19 Principal diagnosis: acute on chronic hypoxic respiratory failure Extensive right-sided pneumonia with air bronchogram, neoplasm cannot be ruled out but however less likely Atrial fibrillation Chronic neuropathy Severe degree of degenerative joint disease of spine Cachexia and protein calorie malnourishment of severe category 07/16/2019, patient seen eval examined during the rounds labs reviewed medications reviewed reviewed radiographic studies done this morning unable to download them, patient has been doing well breathing comfortably, saturations 99% on 3 L, white cell count is stable slowly improving a month and sputum cultures no pathogen identified normal respiratory ashwini will start tapering down the steroids 07/15/2019, patient seen eval examined during the rounds labs reviewed medications reviewed care plan discussed with the patient at length still having significant amount of cough and sputum production patient remains on oxygen get short of breath on minimal activity and exertion, will order chest x-ray were tomorrow to follow up on pneumonia continue antibiotics in the meantime 07/14/2019, patient seen eval examined during the rounds thick purulent sputum production is present cuff and shortness of breath is better breathing slightly improved patient remains on broad-spectrum antibiotics, we'll send a sputum for Gram stain and culture 07/13/2019, patient seen eval examined during the rounds labs reviewed medications reviewed patient is still have ongoing cough congestion shortness of breath symptoms slightly better chest x-ray and CAT scan finding reviewed with the patient in length this is a well-known 68-year-old male with past medical history of 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 patient has been recently placed on foster care, due to respiratory problem patient was seen and evaluated by primary care's office advised to be admitted into the hospital patient has been outpatient treated with antibiotics and steroid without any significant improvement on 4 L his sats are in the low 80s patient underwent chest x-ray and CAT scan, x-ray shows significant right lower lobe disease likel y pneumonia along with evidence of pulmonary hypertension, the computed tomography scan informants presence of right upper lobe pneumonia with extensive emphysematous changes, dense pneumonia seen on the lower lobe, neoplasm cannot be excluded Objective - Vital Signs Vital signs: Vital Signs Temp 98.1 F 07/16/19 05:47 Pulse 68 07/16/19 11:31 Resp 16 07/16/19 05:47 BP 134/68 07/16/19 05:47 Pulse Ox 99 07/16/19 07:19 Intake & Output 07/15/19 07/16/19 07/16/19 18:59 06:59 18:59 Intake Total 300 Output Total 200 700 Balance 100 -700 Weight 50.4 kg Intake: Oral 300 Output: Urine 200 700 Other: Voiding Method Urinal Urinal - Exam - Constitutional General appearance: disheveled, mild distress - EENT Eyes: EOMI, PERRLA, poor dentition, normal appearance Ears: bilateral: normal - Neck Neck: normal ROM Carotids: bilateral: upstroke normal Thyroid: bilateral: normal size - Respiratory Respiratory: bilateral: diminished, rales, rhonchi, wheezing, prolonged expiration - Cardiovascular Rhythm: regular Heart sounds: normal: S1, S2 - Gastrointestinal General gastrointestinal: decreased bowel sounds, soft - Neurologic Neurologic: CNII-XII intact - Musculoskeletal Musculoskeletal: gait normal, generalized weakness, strength equal bilaterally - Psychiatric Psychiatric: A&O x's 3, appropriate affect, intact judgment & insight - Labs CBC & Chem 7: 07/15/19 05:49 07/16/19 09:59 Labs: Abnormal Lab Results - Last 24 Hours (Table) 07/15/19 07/15/19 07/16/19 Range/Units 17:02 20:30 07:00 POC Glucose (mg/dL) 115 H 189 H 112 H (75-99) mg/dL 07/16/19 Range/Units 11:37 POC Glucose (mg/dL) 130 H (75-99) mg/dL Microbiology - Last 24 Hours (Table) 07/12/19 07:56 Blood Culture - Preliminary Blood No Growth after 96 hours 07/12/19 19:57 Gram Stain - Final Sputum Sputum Culture - Final Assessment and Plan Assessment: acute on chronic hypoxic respiratory failure Extensive right-sided pneumonia with air bronchogram, neoplasm cannot be ruled out but however less likely Atrial fibrillation Chronic neuropathy Severe degree of degenerative joint disease of spine Cachexia and protein calorie malnourishment salt severe category Plan: Continue broad-spectrum antibiotics Breathing treatments IV steroids Continue home medications repeat x-ray tomorrow Bronchoscopy cannot be performed at this time given the status, we'll observe him closely with serial radiographic studies to document resolution of pneumonia further recommendations pending plan of care as per clinical response of the patient Time with Patient: Greater than 30
--- NOTE | 2019-07-16 14:51 | XR ---
EXAMINATION TYPE: XR chest 2V DATE OF EXAM: 07/16/2019 COMPARISON: Prior chest x-ray 07/11/2019 HISTORY: Pneumonia, COPD TECHNIQUE: Frontal and lateral views of the chest are obtained. FINDINGS: Prominent lung volumes are compatible with underlying emphysema. Postop changes are noted gastroesophageal junction. There is some improvement in aeration within the right lung. No pneumothor ax or sizable effusion. IMPRESSION: Improvement in aeration
--- NOTE | 2019-07-16 14:52 | CDI ---
Documentation Clarification Form Date: 07/16/2019 2:32:56 PM From: Mercedez Pavon RN CCDS Admit Date: 07/11/2019 11:47:00 AM Patient Name: Rob Coello Visit Number: [id number] Discharge Date: ATTENTION: The Clinical Documentation Specialists (CDI) and [facility] Coding Staff appreciate your assistance in clarifying documentation. Please respond to the clarification below the line at the bottom and electronically sign. The CDI & [facility] Coding staff will review the response and follow-up if needed. Please note: Queries are made part of the Legal Health Record. If you have any questions, please contact the author of this message via ITS. Dr. Nadir Mason Conflicting documentation has been found in the medical record: Acute Respiratory Distress H & P Acute on Chronic Hypercapnic Respiratory Failure H & P Acute on Chronic Hypoxic Respiratory Failure Pulmonology consult 07/12/2019 History/Risk Factors:68-year-old male presents to the ED with shortness of breath. Medical history: 4L home oxygen; End stage COPD Clinical Indicators: Per H & P "Pulse oxing 2-4L in the low 80's at which time he is admitted to the hospital and sent to the hospital and CAT scan shows coummunity multilobular pneumonia" Lactic acid 07/12 2.4; 4.0; 5.1; 4.2; 07/13 2.6; 2.6 07/11 20 RR 96% 3L nasal cannula; 07/12 92% 4L nasal cannula; 07/15 RR 16 93% 2L nasal cannula; 07/16 99% 3L nasal cannula Treatment oxygen via nasal cannula; Duoneb; Symbicort; Solumedrol; In your opinion, what is the most clinically appropriate diagnosis for this patient? * Acute Respiratory Distress * Acute on Chronic Hypoxic Respiratory Failure * Acute on Chronic Hypercapnic Respiratory Failure * Other explanation of clinical findings * Unable to determine (no explanation for clinical findings) (Last Revision: October 2017) CELID
[2019-07-16] MEDS: DOCUSATE 100 MG CAP PO SCH ×2 (15:15→21:01)
--- NOTE | 2019-07-16 16:13 | P.PN ---
Subjective Progress Note Date: 07/16/19 since 68-year-old gentleman admitted with acute on chronic respiratory failure, extensive right-sided pneumonia, possible neoplasm and multiple other medical issues.continues on 4 L nasal cannula (patient's baseline),with breathing slowly improving. Reports productive cough with thick dark yellow sputum.maintained on vancomycin, Zosyn, nebulized bronchodilators, steroids.afebrile.good diet intake, consuming 100% with no nausea vomiting or diarrhea. Denies abdominal pain. Consuming protein supplements as well. 07/16/2019 maintained on nebulized bronchodilators, steroids,Zosyn, vancomycin. afebrile, maintaining O2 satsin the 90s on 3 L nasal cannula. Productive cough, patient states is mildly more than his chronic sputum production. sputum culture reporting few normal respiratory ashwini. consuming 75-100%.Complaining of constipation, states last bowel movement was Tuesday.denies chest pain, palpitations or increasing shortness of breath. Objective - Vital Signs Vital signs: Vital Signs Temp 98.1 F 07/16/19 05:47 Pulse 68 07/16/19 11:31 Resp 16 07/16/19 05:47 BP 134/68 07/16/19 05:47 Pulse Ox 99 07/16/19 07:19 Intake & Output 07/15/19 07/16/19 07/16/19 18:59 06:59 18:59 Intake Total 300 Output Total 200 700 Balance 100 -700 Weight 50.4 kg Intake: Oral 300 Output: Urine 200 700 Other: Voiding Method Urinal Urinal - Exam PHYSICAL EXAM: VITAL SIGNS: [as above] GENERAL: sitting up in bed, no acute distress HEENT: Conjunctivae normal. eyes normal. oral mucosa moist NECK: No JVD. No thyroid enlargement. No LNs CARDIOVASCULAR: S1, S2 regular.. No murmur RESPIRATION: Breath sounds diminished in the bases. scattered rhonchi,crackles with expiratory wheezing. ABDOMEN: Soft, nontender . No guarding. no masses palpable. No ascites, No hepatosplenomegaly.Bowel sounds heard. LEGS: No edema. no swelling PSYCHIATRY: Alert and oriented X3, mood and affect normal. NERVOUS SYSTEM: Cranial N 2-12 grossly normal. Moves all 4 limbs. Diffuse weakness No focal deficits. Strength and sensation grossly intact. Skin: no lesions, no rash - Labs CBC & Chem 7: 07/15/19 05:49 07/16/19 09:59 Labs: Abnormal Lab Results - Last 24 Hours (Table) 07/15/19 07/15/19 07/16/19 Range/Units 17:02 20:30 07:00 POC Glucose (mg/dL) 115 H 189 H 112 H (75-99) mg/dL 07/16/19 Range/Units 11:37 POC Glucose (mg/dL) 130 H (75-99) mg/dL Microbiology - Last 24 Hours (Table) 07/12/19 07:56 Blood Culture - Preliminary Blood No Growth after 96 hours 07/12/19 19:57 Gram Stain - Final Sputum Sputum Culture - Final Assessment and Plan Assessment: acute community-acquired pneumonia,extensive right-sided pneumonia, possible neoplasm End-stage COPD acute on chronic hypercapnic, hypoxic respiratory failure, wears 4 L at home degenerative disc disease Chronic paroxysmal atrial fibrillation Neuropathy Nicotine dependence severe protein calorie malnourishment, BMI 15.6 Plan: Continue on current medication regime ,monitoring and symptomatic treatment.protein supplements between meals. Nebulized bronchodilators, steroids and antibiotics as ordered.tapering of steroids in progress.follow closely with pulmonary. PT/OT.increase ambulation as tolerated. The impression and plan of care has been dictated as directed. : I performed a history and examination of this patient, discussed the same with the dictator. I agree with the dictator's note ,documented as a scribe. Any additional findings or plans will be noted.
[2019-07-16 16:42] LABS: Glucose,Whole Blood 133 mg/dL (75-99)
[2019-07-16] MEDS: methylPREDNISolone SOD SUCCI 40 MG/ML 1 ML VIAL IV SCH ×2 (17:06→23:58)
[2019-07-16] MEDS: SENNOSIDES 8.6 MG TAB PO SCH (20:50)
[2019-07-16 21:24] LABS: Glucose,Whole Blood 106 mg/dL (75-99)
[2019-07-17] MEDS: VANCOMYCIN 750 MG in SODIUM CHLORIDE 0.9% 250 ML IVPB SCH ×3 (02:36→19:12)
[2019-07-17 07:03] LABS: Glucose,Whole Blood 83 mg/dL (75-99)
[2019-07-17] MEDS: IPRATROPIUM-ALBUTEROL 3 ML NEB INHALATION SCH ×4 (07:13→19:11)
[2019-07-17] MEDS: SYMBICORT 160-4.5 MCG INHALER INHALATION SCH ×2 (07:13→19:11)
[2019-07-17] MEDS: INSULIN ASPART (NovoLOG) 100 UNIT/ML VIAL SQ SCH ×4 (07:18→22:58)
[2019-07-17 08:28] LABS: HCT 37.5 % (39.0-53.0); HGB 11.4 gm/dL (13.0-17.5); Hypochromasia Slight; MCH 28.3 pg (25.0-35.0); MCHC 30.5 g/dL (31.0-37.0); MCV 92.9 fL (80.0-100.0); Mean Platelet Volume 7.1; Platelet Count 525 k/uL (150-450); RBC 4.03 m/uL (4.30-5.90); RDW 13.8 % (11.5-15.5); WBC 22.1 k/uL (3.8-10.6)
[2019-07-17 08:50] LABS: African American GFR (CKD) >90 (>60 ml/min/1.73 sqM); Anion Gap 5 mmol/L; Blood Urea Nitrogen 17 mg/dL (9-20); Calcium 8.1 mg/dL (8.4-10.2); Carbon Dioxide 33 mmol/L (22-30); Chloride 96 mmol/L (98-107); Glucose 69 mg/dL (74-99); Non-African American GFR(CKD) >90 (>60 ml/min/1.73 sqM); Potassium 4.9 mmol/L (3.5-5.1); Sodium 134 mmol/L (137-145)
[2019-07-17] MEDS: PANTOPRAZOLE 40 MG TABLET PO SCH ×2 (08:51→16:54)
[2019-07-17] MEDS: methylPREDNISolone SOD SUCCI 40 MG/ML 1 ML VIAL IV SCH ×2 (08:51→16:54)
[2019-07-17] MEDS: DOCUSATE 100 MG CAP PO SCH ×2 (08:51→22:54)
[2019-07-17] MEDS: APIXABAN 2.5 MG TABLET PO SCH ×2 (08:51→22:54)
[2019-07-17] MEDS: CYANOCOBALAMIN 500 MCG TAB PO SCH (08:51)
[2019-07-17] MEDS: PIPERACILLIN-TAZOBACTAM 3.375 GM in SODIUM CHLORIDE 0.9% 100 ML IVPB SCH ×2 (08:51→16:53)
[2019-07-17] MEDS: MORPHINE SULFATE ER 30 MG TABLET PO SCH ×2 (08:52→22:54)
[2019-07-17 10:25] LABS: Glucose,Whole Blood 125 mg/dL (75-99)
[2019-07-17 11:47] LABS: Glucose,Whole Blood 99 mg/dL (75-99)
[2019-07-17] MEDS ORDERED: BISACODYL 10 MG SUPP RECTAL STA (12:13)
--- NOTE | 2019-07-17 12:19 | P.PN ---
Subjective Progress Note Date: 07/17/19 since 68-year-old gentleman admitted with acute on chronic respiratory failure, extensive right-sided pneumonia, possible neoplasm and multiple other medical issues.continues on 4 L nasal cannula (patient's baseline),with breathing slowly improving. Reports productive cough with thick dark yellow sputum.maintained on vancomycin, Zosyn, nebulized bronchodilators, steroids.afebrile.good diet intake, consuming 100% with no nausea vomiting or diarrhea. Denies abdominal pain. Consuming protein supplements as well. 07/16/2019 maintained on nebulized bronchodilators, steroids,Zosyn, vancomycin. afebrile, maintaining O2 satsin the 90s on 3 L nasal cannula. Productive cough, patient states is mildly more than his chronic sputum production. sputum culture reporting few normal respiratory ashwini. consuming 75-100%.Complaining of constipation, states last bowel movement was Tuesday.denies chest pain, palpitations or increasing shortness of breath. 07/17/2019 in a with physical therapy, desatted down to 89% on 3 L with exertion.Productive cough with creamy thick yellow sputum. Steroids tapered down yesterday. Continues to do well, afebrile, maintaining O2 sats in the high 90s on 3 L nasal cannula. Patient wears 3-4 L nasal cannula at AFC.denies chest pain, palpitations or increasing shortness breath.blood sugars controlled. Objective - Vital Signs Vital signs: Vital Signs Temp 97.3 F L 07/17/19 05:38 Pulse 72 07/17/19 11:22 Resp 16 07/17/19 05:38 BP 123/64 07/17/19 05:38 Pulse Ox 97 07/17/19 07:15 Intake & Output 07/16/19 07/17/19 07/17/19 18:59 06:59 18:59 Intake Total 1280 200 Output Total 1115 400 Balance 1280 -915 -400 Weight 49.6 kg Intake: Oral 1280 200 Output: Urine 1115 400 Other: Voiding Method Urinal Urinal Urinal # Voids 2 1 # Bowel Movements 0 - Exam PHYSICAL EXAM: VITAL SIGNS: [as above] GENERAL: sitting up in chair, no acute distress HEENT: Conjunctivae normal. eyes normal. oral mucosa moist NECK: No JVD. No thyroid enlargement. No LNs CARDIOVASCULAR: S1, S2 regular.. No murmur RESPIRATION: Breath sounds diminished in the bases.inspiratory and Expiratory wheezing. ABDOMEN: Soft, nontender . No guarding. no masses palpable. No ascites, No hepatosplenomegaly.Bowel sounds heard. LEGS: No edema. no swelling PSYCHIATRY: Alert and oriented X3, mood and affect normal. NERVOUS SYSTEM: Cranial N 2-12 grossly normal. Moves all 4 limbs. Diffuse weakness No focal deficits. Strength and sensation grossly intact. Skin: no lesions, no rash - Labs CBC & Chem 7: 07/17/19 07:57 07/17/19 07:57 Labs: Abnormal Lab Results - Last 24 Hours (Table) 07/16/19 07/16/19 07/17/19 Range/Units 16:38 21:21 07:57 WBC 22.1 H (3.8-10.6) k/uL RBC 4.03 L (4.30-5.90) m/uL Hgb 11.4 L (13.0-17.5) gm/dL Hct 37.5 L (39.0-53.0) % MCHC 30.5 L (31.0-37.0) g/dL Plt Count 525 H (150-450) k/uL Sodium (137-145) mmol/L Chloride (98-107) mmol/L Carbon Dioxide (22-30) mmol/L Creatinine (0.66-1.25) mg/dL Glucose (74-99) mg/dL POC Glucose (mg/dL) 133 H 106 H (75-99) mg/dL Calcium (8.4-10.2) mg/dL 07/17/19 07/17/19 Range/Units 07:57 10:23 WBC (3.8-10.6) k/uL RBC (4.30-5.90) m/uL Hgb (13.0-17.5) gm/dL Hct (39.0-53.0) % MCHC (31.0-37.0) g/dL Plt Count (150-450) k/uL Sodium 134 L (137-145) mmol/L Chloride 96 L (98-107) mmol/L Carbon Dioxide 33 H (22-30) mmol/L Creatinine 0.60 L (0.66-1.25) mg/dL Glucose 69 L (74-99) mg/dL POC Glucose (mg/dL) 125 H (75-99) mg/dL Calcium 8.1 L (8.4-10.2) mg/dL Microbiology - Last 24 Hours (Table) 07/12/19 07:56 Blood Culture - Preliminary Blood No Growth after 120 hours Assessment and Plan Assessment: acute community-acquired pneumonia,extensive right-sided pneumonia, possible neoplasm End-stage COPD acute on chronic hypercapnic, hypoxic respiratory failure, wears 4 L at home degenerative disc disease Chronic paroxysmal atrial fibrillation Neuropathy Nicotine dependence severe protein calorie malnourishment, BMI 15.6 Plan: Continue on current medication regime ,monitoring and symptomatic treatment.Maintain Nebulized bronchodilators, steroids and antibiotics as ordered.tapering of steroids in progress.aggressive pulmonary toileting with incentive spirometer reinforced.follow closely with pulmonary. The impression and plan of care has been dictated as directed. : I performed a history and examination of this patient, discussed the same with the dictator. I agree with the dictator's note ,documented as a scribe. Any additional findings or plans will be noted.
[2019-07-17 16:46] LABS: Glucose,Whole Blood 92 mg/dL (75-99)
--- NOTE | 2019-07-17 18:43 | P.PN ---
Subjective Progress Note Date: 07/17/19 Principal diagnosis: acute on chronic hypoxic respiratory failure Extensive right-sided pneumonia with air bronchogram, neoplasm cannot be ruled out but however less likely Atrial fibrillation Chronic neuropathy Severe degree of degenerative joint disease of spine Cachexia and protein calorie malnourishment of severe category 07/17/2019, patient seen eval reexamined during the rounds labs reviewed medications reviewed care plan discussed continue be on broad-spectrum an tibiotics sugars are negative so farAmmann patient remains on vent: Zosyn and IV steroids which can be simplified to oral prednisone and Augmentin at the time of dischargeAmmann chest x-ray from yesterday reviewed significant clearing and some partial resolution or pneumonia seen 07/16/2019, patient seen eval examined during the rounds labs reviewed medications reviewed reviewed radiographic studies done this morning unable to download them, patient has been doing well breathing comfortably, saturations 99% on 3 L, white cell count is stable slowly improving a month and sputum cultures no pathogen identified normal respiratory ashwini will start tapering down the steroids 07/15/2019, patient seen eval examined during the rounds labs reviewed medications reviewed care plan discussed with the patient at length still having significant amount of cough and sputum production patient remains on oxygen get short of breath on minimal activity and exertion, will order chest x-ray were tomorrow to follow up on pneumonia continue antibiotics in the meantime 07/14/2019, patient seen eval examined during the rounds thick purulent sputum production is present cuff and shortness of breath is better breathing slightly improved patient remains on broad-spectrum antibiotics, we'll send a sputum for Gram stain and culture 07/13/2019, patient seen eval examined during the rounds labs reviewed me dications reviewed patient is still have ongoing cough congestion shortness of breath symptoms slightly better chest x-ray and CAT scan finding reviewed with the patient in length this is a well-known 68-year-old male with past medical history of 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 patient has been recently placed on foster care, due to respiratory problem patient was seen and evaluated by primary care's office advised to be admitted into the hospital patient has been outpatient treated with antibiotics and steroid without any significant improvement on 4 L his sats are in the low 80s patient underwent chest x-ray and CAT scan, x-ray shows significant right lower lobe disease likely pneumonia along with evidence of pulmonary hypertension, the computed tomography scan informants presence of right upper lobe pneumonia with extensive emphysematous changes, dense pneumonia seen on the lower lobe, neoplasm cannot be excluded Objective - Vital Signs Vital signs: Vital Signs Temp 98.1 F 07/17/19 12:45 Pulse 72 07/17/19 15:36 Resp 18 07/17/19 12:45 BP 149/83 07/17/19 12:45 Pulse Ox 94 L 07/17/19 12:45 Intake & Output 07/16/19 07/17/19 07/17/19 18:59 06:59 18:59 Intake Total 5421 694 9370 Output Total 1115 400 Balance 1280 -915 680 Weight 49.6 kg Intake: Oral 8915 478 8528 Output: Urine 1115 400 Other: Voiding Method Urinal Urinal Urinal # Voids 2 1 3 # Bowel Movements 0 - Exam - Constitutional General appearance: disheveled, mild distress - EENT Eyes: EOMI, PERRLA, poor dentition, normal appearance Ears: bilateral: normal - Neck Neck: normal ROM Carotids: bilateral: upstroke normal Thyroid: bilateral: normal size - Respiratory Respiratory: bilateral: diminished, rales, rhonchi, wheezing, prolonged expiration - Cardiovascular Rhythm: regular Heart sounds: normal: S1, S2 - Gastrointestinal General gastrointestinal: decreased bowel sounds, soft - Neurologic Neurologic: CNII-XII intact - Musculoskeletal Musculoskeletal: gait normal, generalized weakness, strength equal bilaterally - Psychiatric Psychiatric: A&O x's 3, appropriate affect, intact judgment & insight - Labs CBC & Chem 7: 07/17/19 07:57 07/17/19 07:57 Labs: Abnormal Lab Results - Last 24 Hours (Table) 07/16/19 07/17/19 07/17/19 Range/Units 21:21 07:57 07:57 WBC 22.1 H (3.8-10.6) k/uL RBC 4.03 L (4.30-5.90) m/uL Hgb 11.4 L (13.0-17.5) gm/dL Hct 37.5 L (39.0-53.0) % MCHC 30.5 L (31.0-37.0) g/dL Plt Count 525 H (150-450) k/uL Sodium 134 L (137-145) mmol/L Chloride 96 L (98-107) mmol/L Carbon Dioxide 33 H (22-30) mmol/L Creatinine 0.60 L (0.66-1.25) mg/dL Glucose 69 L (74-99) mg/dL POC Glucose (mg/dL) 106 H (75-99) mg/dL Calcium 8.1 L (8.4-10.2) mg/dL 07/17/19 Range/Units 10:23 WBC (3.8-10.6) k/uL RBC (4.30-5.90) m/uL Hgb (13.0-17.5) gm/dL Hct (39.0-53.0) % MCHC (31.0-37.0) g/dL Plt Count (150-450) k/uL Sodium (137-145) mmol/L Chloride (98-107) mmol/L Carbon Dioxide (22-30) mmol/L Creatinine (0.66-1.25) mg/dL Glucose (74-99) mg/dL POC Glucose (mg/dL) 125 H (75-99) mg/dL Calcium (8.4-10.2) mg/dL Microbiology - Last 24 Hours (Table) 07/12/19 07:56 Blood Culture - Preliminary Blood No Growth after 120 hours Assessment and Plan Assessment: acute on chronic hypoxic respiratory failure Extensive right-sided pneumonia with air bronchogram, neoplasm cannot be ruled out but however less likely Atrial fibrillation Chronic neuropathy Severe degree of degenerative joint disease of spine Cachexia and protein calorie malnourishment salt severe category Plan: Continue broad-spectrum antibiotics Breathing treatments IV steroids Continue home medications Bronchoscopy cannot be performed at this time given the status, we'll observe him closely with serial radiographic studies to document resolution of pneumonia further recommendations pending plan of care as per clinical response of the patient
[2019-07-17 20:43] LABS: Glucose,Whole Blood 129 mg/dL (75-99)
[2019-07-17] MEDS: SENNOSIDES 8.6 MG TAB PO SCH (22:54)
[2019-07-18] MEDS: PIPERACILLIN-TAZOBACTAM 3.375 GM in SODIUM CHLORIDE 0.9% 100 ML IVPB SCH ×4 (01:07→23:50)
[2019-07-18] MEDS: methylPREDNISolone SOD SUCCI 40 MG/ML 1 ML VIAL IV SCH ×2 (01:07→09:26)
[2019-07-18] MEDS: VANCOMYCIN 750 MG in SODIUM CHLORIDE 0.9% 250 ML IVPB SCH ×3 (03:47→20:41)
[2019-07-18] MEDS: SYMBICORT 160-4.5 MCG INHALER INHALATION SCH ×2 (07:02→19:13)
[2019-07-18] MEDS: IPRATROPIUM-ALBUTEROL 3 ML NEB INHALATION SCH ×4 (07:02→19:13)
[2019-07-18 07:19] LABS: Glucose,Whole Blood 87 mg/dL (75-99)
[2019-07-18] MEDS: INSULIN ASPART (NovoLOG) 100 UNIT/ML VIAL SQ SCH ×4 (08:15→20:45)
[2019-07-18] MEDS: DOCUSATE 100 MG CAP PO SCH ×2 (09:26→20:45)
[2019-07-18] MEDS: CYANOCOBALAMIN 500 MCG TAB PO SCH (09:26)
[2019-07-18] MEDS: APIXABAN 2.5 MG TABLET PO SCH ×2 (09:26→20:44)
[2019-07-18] MEDS: MORPHINE SULFATE ER 30 MG TABLET PO SCH ×2 (09:26→20:44)
[2019-07-18] MEDS: PANTOPRAZOLE 40 MG TABLET PO SCH ×2 (09:26→17:09)
[2019-07-18 10:04] LABS: African American GFR (CKD) >90 (>60 ml/min/1.73 sqM); Anion Gap 7 mmol/L; Basophils % (A) 0 %; Blood Urea Nitrogen 18 mg/dL (9-20); Calcium 8.2 mg/dL (8.4-10.2); Carbon Dioxide 29 mmol/L (22-30); Chloride 97 mmol/L (98-107); Eosinophils % (A) 0 %; Glucose 153 mg/dL (74-99); HCT 39.7 % (39.0-53.0); HGB 11.9 gm/dL (13.0-17.5); Hypochromasia Moderate; Lymphocytes # (A) 0.6 k/uL (1.0-4.8); Lymphocytes % (A) 4 %; MCH 28.1 pg (25.0-35.0); MCV 93.5 fL (80.0-100.0); Mean Platelet Volume 6.9; Monocytes # (A) 0.4 k/uL (0-1.0); Monocytes % (A) 2 %; Neutrophils # (A) 16.4 k/uL (1.3-7.7); Neutrophils % (A) 94 %; Non-African American GFR(CKD) >90 (>60 ml/min/1.73 sqM); Platelet Count 542 k/uL (150-450); RBC 4.24 m/uL (4.30-5.90); RDW 13.9 % (11.5-15.5); Sodium 133 mmol/L (137-145); WBC 17.6 k/uL (3.8-10.6)
[2019-07-18 12:10] LABS: Glucose,Whole Blood 97 mg/dL (75-99)
--- NOTE | 2019-07-18 13:36 | P.PN ---
Subjective Progress Note Date: 07/18/19 since 68-year-old gentleman admitted with acute on chronic respiratory failure, extensive right-sided pneumonia, possible neoplasm and multiple other medical issues.continues on 4 L nasal cannula (patient's baseline),with breathing slowly improving. Reports productive cough with thick dark yellow sputum.maintained on vancomycin, Zosyn, nebulized bronchodilators, steroids.afebrile.good diet intake, consuming 100% with no nausea vomiting or diarrhea. Denies abdominal pain. Consuming protein supplements as well. 07/16/2019 maintained on nebulized bronchodilators, steroids,Zosyn, vancomycin. afebrile, maintaining O2 satsin the 90s on 3 L nasal cannula. Productive cough, patient states is mildly more than his chronic sputum production. sputum culture reporting few normal respiratory ashwini. consuming 75-100%.Complaining of constipation, states last bowel movement was Tuesday.denies chest pain, palpitations or increasing shortness of breath. 07/17/2019 in a with physical therapy, desatted down to 89% on 3 L with exertion.Productive cough with creamy thick yellow sputum. Steroids tapered down yesterday. Continues to do well, afebrile, maintaining O2 sats in the high 90s on 3 L nasal cannula. Patient wears 3-4 L nasal cannula at [facility].denies chest pain, palpitations or increasing shortness breath.blood sugars controlled. 07/18/2019 improving,ambulated to door way with physical therapy,with exertional shortness of breath. Improve diet intake with no nausea vomiting. Declining en sure supplements states it causes bloating.continues to have copious thick yellow sputum production. Afebrile.continues on Zosyn, vancomycin, and nebulized bronchodilators, steroids. Maintaining O2 sats in the high 90s on 3 L nasal cannula.creatinine 0.66. Objective - Vital Signs Vital signs: Vital Signs Temp 97.6 F 07/18/19 05:00 Pulse 74 07/18/19 11:13 Resp 20 07/18/19 05:00 BP 121/64 07/18/19 05:00 Pulse Ox 98 07/18/19 05:00 Intake & Output 07/17/19 07/18/19 07/18/19 18:59 06:59 18:59 Intake Total 1080 600 Output Total 400 1500 Balance 680 -900 Weight 49.9 kg Intake: Oral 1080 600 Output: Urine 400 1500 Other: Voiding Method Urinal Urinal Urinal # Voids 3 # Bowel Movements 1 - Exam PHYSICAL EXAM: VITAL SIGNS: [as above] GENERAL: sitting up in chair, no acute distress HEENT: Conjunctivae normal. eyes normal. oral mucosa moist NECK: No JVD. No thyroid enlargement. No LNs CARDIOVASCULAR: S1, S2 regular.. No murmur RESPIRATION: Breath sounds diminished in the bases.occasional fine expiratory wheeze ABDOMEN: Soft, nontender . No guarding. no masses palpable. No ascites, No hepatosplenomegaly.Bowel sounds heard. LEGS: No edema. no swelling PSYCHIATRY: Alert and oriented X3, mood and affect normal. NERVOUS SYSTEM: Cranial N 2-12 grossly normal. Moves all 4 limbs. Diffuse weakness,No focal deficits. Strength and sensation grossly intact. Skin: no lesions, no rash. - Labs CBC & Chem 7: 07/18/19 09:19 07/18/19 09:19 Labs: Abnormal Lab Results - Last 24 Hours (Table) 07/17/19 07/18/19 07/18/19 Range/Units 20:25 09:19 09:19 WBC 17.6 H (3.8-10.6) k/uL RBC 4.24 L (4.30-5.90) m/uL Hgb 11.9 L (13.0-17.5) gm/dL MCHC 30.0 L (31.0-37.0) g/dL Plt Count 542 H (150-450) k/uL Neutrophils # 16.4 H (1.3-7.7) k/uL Lymphocytes # 0.6 L (1.0-4.8) k/uL Sodium 133 L (137-145) mmol/L Chloride 97 L (98-107) mmol/L Glucose 153 H (74-99) mg/dL POC Glucose (mg/dL) 129 H (75-99) mg/dL Calcium 8.2 L (8.4-10.2) mg/dL Microbiology - Last 24 Hours (Table) 07/12/19 07:56 Blood Culture - Final Blood No Growth after 144 hours Assessment and Plan Assessment: acute community-acquired pneumonia,extensive right-sided pneumonia, possible neoplasm End-stage COPD acute on chronic hypercapnic, hypoxic respiratory failure, wears 4 L at home degenerative disc disease Chronic paroxysmal atrial fibrillation Neuropathy Nicotine dependence severe protein calorie malnourishment, BMI 15.6 Plan: Continue on current medication regime ,monitoring and symptomatic treat ment.Maintain Nebulized bronchodilators, steroids and antibiotics as ordered.Furthertapering of steroids in progress-begin oral prednisone in a.m..aggressive pulmonary toileting with incentive spirometer reinforced.increase ambulation with PT. Discharge planning in progress for Tuesday tentatively. The impression and plan of care has been dictated as directed. : I performed a history and examination of this patient, discussed the same with the dictator. I agree with the dictator's note ,documented as a scribe. Any additional findings or plans will be noted.
[2019-07-18 16:45] LABS: Glucose,Whole Blood 105 mg/dL (75-99)
[2019-07-18 20:44] LABS: Glucose,Whole Blood 80 mg/dL (75-99)
[2019-07-18] MEDS: SENNOSIDES 8.6 MG TAB PO SCH (20:45)
[2019-07-18 21:36] VITALS: RESP 18
[2019-07-19] MEDS: VANCOMYCIN 750 MG in SODIUM CHLORIDE 0.9% 250 ML IVPB SCH ×2 (03:21→11:10)
[2019-07-19 07:08] LABS: Glucose,Whole Blood 67 mg/dL (75-99)
[2019-07-19] MEDS: SYMBICORT 160-4.5 MCG INHALER INHALATION SCH (07:24)
[2019-07-19] MEDS: IPRATROPIUM-ALBUTEROL 3 ML NEB INHALATION SCH ×3 (07:24→15:32)
[2019-07-19 07:28] LABS: Glucose,Whole Blood 77 mg/dL (75-99)
[2019-07-19 07:43] LABS: Glucose,Whole Blood 108 mg/dL (75-99)
[2019-07-19] MEDS: INSULIN ASPART (NovoLOG) 100 UNIT/ML VIAL SQ SCH ×2 (07:46→12:42)
[2019-07-19] MEDS: APIXABAN 2.5 MG TABLET PO SCH (07:54)
[2019-07-19] MEDS: CYANOCOBALAMIN 500 MCG TAB PO SCH (07:54)
[2019-07-19] MEDS: PANTOPRAZOLE 40 MG TABLET PO SCH (07:54)
[2019-07-19] MEDS: DOCUSATE 100 MG CAP PO SCH (07:54)
[2019-07-19] MEDS: MORPHINE SULFATE ER 30 MG TABLET PO SCH (08:07)
[2019-07-19] MEDS: PIPERACILLIN-TAZOBACTAM 3.375 GM in SODIUM CHLORIDE 0.9% 100 ML IVPB SCH (08:44)
[2019-07-19] MEDS ORDERED: predniSONE 20 MG TAB PO SCH (09:00)
[2019-07-19] MEDS ORDERED: AMOXIC-POT CLAV 875-125MG 1 EACH TAB PO SCH (09:45)
[2019-07-19 10:14] LABS: African American GFR (CKD) >90 (>60 ml/min/1.73 sqM); Anion Gap 3 mmol/L; Blood Urea Nitrogen 14 mg/dL (9-20); Calcium 8.1 mg/dL (8.4-10.2); Carbon Dioxide 30 mmol/L (22-30); Chloride 98 mmol/L (98-107); Glucose 101 mg/dL (74-99); Non-African American GFR(CKD) >90 (>60 ml/min/1.73 sqM); Potassium 4.9 mmol/L (3.5-5.1); Sodium 131 mmol/L (137-145)
[2019-07-19 10:32] LABS: HCT 38.4 % (39.0-53.0); HGB 11.8 gm/dL (13.0-17.5); Hypochromasia Moderate; MCH 28.8 pg (25.0-35.0); MCHC 30.8 g/dL (31.0-37.0); MCV 93.7 fL (80.0-100.0); Mean Platelet Volume 6.9; Platelet Count 592 k/uL (150-450); RDW 13.9 % (11.5-15.5); WBC 23.6 k/uL (3.8-10.6)
[2019-07-19 11:49] LABS: Glucose,Whole Blood 90 mg/dL (75-99)
[2019-07-19 12:58] VITALS: BP 107/72; TEMP 97.8
--- NOTE | 2019-07-19 14:19 | P.PN ---
Subjective Progress Note Date: 07/19/19 Principal diagnosis: acute on chronic hypoxic respiratory failure Extensive right-sided pneumonia with air bronchogram, neoplasm cannot be ruled out but however less likely Atrial fibrillation Chronic neuropathy Severe degree of degenerative joint disease of spine Cachexia and protein calorie malnourishment of severe category 07/19/2019, patient seen eval examined during the rounds labs reviewed medications reviewed care plan discussed with patient and staff at length, the sputum production has improved patient is alert feeling less short of breath, denies any hemoptysis denies any chest pain has been getting breathing treatment remains on broad-spectrum antibiotics, radiographic studies reviewed, so far cultures have been negative, patient can be switched to oral antibiotics like Augmentin for 5 days along with tapering his steroids agree with discharge planning 07/17/2019, patient seen eval reexamined during the rounds labs reviewed medications reviewed care plan discussed continue be on broad-spectrum antibiotics sugars are negative so farAmmann patient remains on vent: Zosyn and IV steroids which can be simplified to oral prednisone and Augmentin at the time of dischargeAmmann chest x-ray from yesterday reviewed significant clearing and some partial resolution or pneumonia seen 07/16/2019, patient seen eval examined during the rounds labs reviewed medications reviewed reviewed radiographic studies done this morning unable to download them, patient has been doing well breathing comfortably, saturations 99% on 3 L, white cell count is stable slowly improving a month and sputum cultures no pathogen identified normal respiratory ashwini will start tapering down the steroids 07/15/2019, patient seen eval examined during the rounds labs reviewed medications reviewed care plan discussed with the patient at length still having significant amount of cough and sputum production patient remains on oxygen get short of breath on minimal activity and exertion, will order chest x-ray were tomorrow to follow up on pneumonia continue antibiotics in the meantime 07/14/2019, patient seen eval examined during the rounds thick purulent sputum production is present cuff and shortness of breath is better breathing slightly improved patient remains on broad-spectrum antibiotics, we'll send a sputum for Gram stain and culture 07/13/2019, patient seen eval examined during the rounds labs reviewed medications reviewed patient is still have ongoing cough congestion shortness of breath symptoms slightly better chest x-ray and CAT scan finding reviewed with the patient in length this is a well-known 68-year-old male with past medical history of 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 patient has been recently placed on foster care, due to respiratory problem patient was seen and evaluated by primary care's office advised to be admitted into the hospital patient has been outpatient treated with antibiotics and steroid without any significant improvement on 4 L his sats are in the low 80s patient underwent ch est x-ray and CAT scan, x-ray shows significant right lower lobe disease likely pneumonia along with evidence of pulmonary hypertension, the computed tomography scan informants presence of right upper lobe pneumonia with extensive emphysematous changes, dense pneumonia seen on the lower lobe, neoplasm cannot be excluded Objective - Vital Signs Vital signs: Vital Signs Temp 97.8 F 07/19/19 12:57 Pulse 61 07/19/19 12:57 Resp 18 07/19/19 12:57 BP 107/72 07/19/19 12:57 Pulse Ox 90 L 07/19/19 12:57 Intake & Output 07/18/19 07/19/19 07/19/19 18:59 06:59 18:59 Intake Total 1080 Output Total 1700 500 Balance 1080 -1700 -500 Weight 49.9 kg 47.3 kg Intake: Oral 1080 Output: Urine 1700 500 Other: Voiding Method Urinal Urinal Urinal # Voids 3 0 # Bowel Movements 0 - Exam - Constitutional General appearance: disheveled, mild distress - EENT Eyes: EOMI, PERRLA, poor dentition, normal appearance Ears: bilateral: normal - Neck Neck: normal ROM Carotids: bilateral: upstroke normal Thyroid: bilateral: normal size - Respiratory Respiratory: bilateral: diminished, rales, rhonchi, wheezing, prolonged expiration - Cardiovascular Rhythm: regular Heart sounds: normal: S1, S2 - Gastrointestinal General gastrointestinal: decreased bowel sounds, soft - Neurologic Neurologic: CNII-XII intact - Musculoskeletal Musculoskeletal: gait normal, generalized weakness, strength equal bilaterally - Psychiatric Psychiatric: A&O x's 3, appropriate affect, intact judgment & insight - Labs CBC & Chem 7: 07/19/19 09:45 07/19/19 09:45 Labs: Abnormal Lab Results - Last 24 Hours (Table) 07/18/19 07/19/19 07/19/19 Range/Units 16:43 07:05 07:42 WBC (3.8-10.6) k/uL RBC (4.30-5.90) m/uL Hgb (13.0-17.5) gm/dL Hct (39.0-53.0) % MCHC (31.0-37.0) g/dL Plt Count (150-450) k/uL Sodium (137-145) mmol/L Creatinine (0.66-1.25) mg/dL Glucose (74-99) mg/dL POC Glucose (mg/dL) 105 H 67 L 108 H (75-99) mg/dL Calcium (8.4-10.2) mg/dL 07/19/19 07/19/19 Range/Units 09:45 09:45 WBC 23.6 H (3.8-10.6) k/uL RBC 4.10 L (4.30-5.90) m/uL Hgb 11.8 L (13.0-17.5) gm/dL Hct 38.4 L (39.0-53.0) % MCHC 30.8 L (31.0-37.0) g/dL Plt Count 592 H (150-450) k/uL Sodium 131 L (137-145) mmol/L Creatinine 0.60 L (0.66-1.25) mg/dL Glucose 101 H (74-99) mg/dL POC Glucose (mg/dL) (75-99) mg/dL Calcium 8.1 L (8.4-10.2) mg/dL Microbiology - Last 24 Hours (Table) 07/12/19 07:56 Blood Culture - Final Blood No Growth after 144 hours Assessment and Plan Assessment: acute on chronic hypoxic respiratory failure Extensive right-sided pneumonia with air bronchogram, neoplasm cannot be ruled out but however less likely Atrial fibrillation Chronic neuropathy Severe degree of degenerative joint disease of spine Cachexia and protein calorie malnourishment salt severe category Plan: Continue broad-spectrum antibiotics Breathing treatments IV steroids Continue home medications Bronchoscopy cannot be performed at this time given the status, we'll observe him closely with serial radiographic studies to document resolution of pneumonia further recommendations pending plan of care as per clinical response of the patient Time with Patient: Greater than 30
--- NOTE | 2019-07-19 14:33 | P.DS ---
Providers Date of admission: 07/11/19 11:47 Expected date of discharge: 07/19/19 Attending physician: Nadir Mason Consults: 07/11/19 13:50 Consult Physician Routine Consulting Provider: Yonathan Lowery Consult Reason/Comments: COPD, poss. pneumonia Do you want consulting provider notified?: Yes 07/12/19 06:53 Consult Physician Routine Consulting Provider: Yonathan Lowery Consult Reason/Comments: cap Do you want consulting provider notified?: Yes [facility]: Final Diagnoses: acute community-acquired pneumonia,extensive right-sided pneumonia, possible neoplasm End-stage COPD acute on chronic hypercapnic, hypoxic respiratory failure, wears 4 L at home degenerative disc disease Chronic paroxysmal atrial fibrillation Neuropathy Nicotine dependence severe protein calorie malnourishment, BMI 15.6 Hospital course:since 68-year-old gentleman admitted with acute on chronic respiratory failure, extensive right-sided pneumonia, possible neoplasm and multiple other medical issues.continues on 4 L nasal cannula (patient's baseline),with breathing slowly improving. Reports productive cough with thick dark yellow sputum.maintained on vancomycin, Zosyn, nebulized bronchodilators, steroids.afebrile.good diet intake, consuming 100% with no nausea vomiting or diarrhea. Denies abdominal pain. Consuming protein supplements as well. 07/16/2019 maintained on nebulized bronchodilators, steroids,Zosyn, vancomycin. afebrile, maintaining O2 satsin the 90s on 3 L nasal cannula. Productive cough, patient states is mildly more than his chronic sputum production. sputum culture reporting few normal respiratory ashwini. consuming 75-100%.Complaining of constipation, states last bowel movement was Tuesday.denies chest pain, palpitations or increasing shortness of breath. 07/17/2019 in a with physical therapy, desatted down to 89% on 3 L with exertion.Productive cough with creamy thick yellow sputum. Steroids tapered down yesterday. Continues to do well, afebrile, maintaining O2 sats in the high 90s on 3 L nasal cannula. Patient wears 3-4 L nasal cannula at [facility].denies chest pain, palpitations or increasing shortness breath.blood sugars controlled. 07/18/2019 improving,ambulated to door way with physical therapy,with exertional shortness of breath. Improve diet intake with no nausea vomiting. Declining ensure supplements states it causes bloating.continues to have copious thick yellow sputum production. Afebrile.continues on Zosyn, vancomycin, and nebulized bronchodilators, steroids. Maintaining O2 sats in the high 90s on 3 L nasal cannula.creatinine 0.66. significant clinical improvement. Cleared by pulmonary for discharge. Patient is being discharged to [facility] in a stable condition with guarded prognosis. EXAM: GENERAL: alert and oriented 3 no acute distress CARDIOVASCULAR: S1, S2 regular.. No murmur RESPIRATION: Breath sounds diminished in the bases. ABDOMEN: Soft, nontender . No guarding. no masses palpable. Bowel sounds heard. NERVOUS SYSTEM:No focal deficits The impression and plan of care has been dictated as directed. : I performed a history and examination of this patient, discussed the same with the dictator. I agree with the dictator's note ,documented as a scribe. Any additional findings or plans will be noted. Patient Condition at Discharge: Stable Plan - Discharge Summary Discharge Rx Participant: No New Discharge Prescriptions: New Amoxic-Pot Clav 875-125Mg [Augmentin 875-125] 1 each PO Q12HR #10 tab Docusate [Colace] 100 mg PO BID #30 cap predniSONE 10 mg PO DIRECTED #30 tab Continue Cyanocobalamin [Vitamin B-12] 500 mcg PO DAILY Budesonide-Formot 160-4.5 Mcg [Symbicort 160-4.5 Mcg Inhaler] 2 puff INHALATION RT-BID Apixaban [Eliquis] 2.5 mg PO BID Sennosides [Senna] 17.2 mg PO HS Omeprazole 40 mg PO BID LORazepam [Ativan] 1 mg PO Q6H PRN PRN Reason: Anxiety Albuterol Inhaler [Ventolin Hfa Inhaler] 2 puff INHALATION RT-Q6H PRN PRN Reason: Shortness Of Breath Morphine Sulfate ER [Ms Contin] 30 mg PO BID@0900,2100 HYDROcodone/APAP 10-325MG [Fallon 10-325] 1 tab PO Q4HR PRN PRN Reason: Breakthrough Pain Tiotropium [place] [Spiriva] 1 cap INHALATION DAILY Ranitidine HCl 150 mg PO BID Ipratropium-Albuterol Nebulize [Duoneb 0.5 mg-3 mg/3 ml Soln] 3 ml INHALATION RT-Q4H PRN PRN Reason: Shortness Of Breath Discharge Medication List Budesonide-Formot 160-4.5 Mcg [Symbicort 160-4.5 Mcg Inhaler] 2 puff INHALATION RT-BID 11/25/15 [History] Cyanocobalamin [Vitamin B-12] 500 mcg PO DAILY 11/25/15 [History] Apixaban [Eliquis] 2.5 mg PO BID 12/29/17 [History] Sennosides [Senna] 17.2 mg PO HS 12/29/17 [History] Albuterol Inhaler [Ventolin Hfa Inhaler] 2 puff INHALATION RT-Q6H PRN 03/14/19 [History] HYDROcodone/APAP 10-325MG [Fallon 10-325] 1 tab PO Q4HR PRN 03/14/19 [History] LORazepam [Ativan] 1 mg PO Q6H PRN 03/14/19 [History] Morphine Sulfate ER [Ms Contin] 30 mg PO BID@0900,2100 03/14/19 [History] Omeprazole 40 mg PO BID 03/14/19 [History] Ipratropium-Albuterol Nebulize [Duoneb 0.5 mg-3 mg/3 ml Soln] 3 ml INHALATION RT-Q4H PRN 07/11/19 [History] Ranitidine HCl 150 mg PO BID 07/11/19 [History] Tiotropium [place] [Spiriva] 1 cap INHALATION DAILY 07/11/19 [History] Amoxic-Pot Clav 875-125Mg [Augmentin 875-125] 1 each PO Q12HR #10 tab 07/19/19 [Rx] Docusate [Colace] 100 mg PO BID #30 cap 07/19/19 [Rx] predniSONE 10 mg PO DIRECTED #30 tab 07/19/19 [Rx] Follow up Appointment(s)/Referral(s): Nadir Mason MD [Primary Care Provider] - 3 Days Yonathan Lowery MD [STAFF PHYSICIAN] - 2 Weeks Ambulatory/Diagnostic Orders: Complete Blood Count w/diff [LAB.AMB] Time Frame: 3 Days, Location: None Selected Patient Instructions/Handouts: COPD (Chronic Obstructive Pulmonary Disease) (DC) Activity/Diet/Wound Care/Special Instructions: [facility] requires paper scripts at d/c and they will transport at d/c [phone].
[2019-07-19 15:43] VITALS: PULSE 70
== END 2019-07-19 16:30 | disposition home or self-care (01) | DRG 193 ==
LOC: 4MS4W 11:47 → 6NMEDSUR 07-15 07:44
PROVIDERS: ADMIT Family Medicine; ATTEND Family Medicine
DX: J18.0 Bronchopneumonia, unspecified organism (principal); J96.21 Acute and chronic respiratory failure with hypoxia; J96.22 Acute and chronic respiratory failure with hypercapnia; E43 Unspecified severe protein-calorie malnutrition; Z68.1 Body mass index [BMI] 19.9 or less, adult; R64 Cachexia; F17.200 Nicotine dependence, unspecified, uncomplicated; F41.9 Anxiety disorder, unspecified; G62.9 Polyneuropathy, unspecified; I27.20 Pulmonary hypertension, unspecified; I48.0 Paroxysmal atrial fibrillation; K31.84 Gastroparesis; K59.00 Constipation, unspecified; M47.9 Spondylosis, unspecified; Z79.01 Long term (current) use of anticoagulants; Z79.51 Long term (current) use of inhaled steroids; Z79.52 Long term (current) use of systemic steroids; Z80.7 Family history of other malignant neoplasms of lymphoid, hematopoietic and related tissues; Z86.711 Personal history of pulmonary embolism; Z87.11 Personal history of peptic ulcer disease; Z90.3 Acquired absence of stomach [part of]; Z99.81 Dependence on supplemental oxygen; J43.9 Emphysema, unspecified; Z79.899 Other long term (current) drug therapy; Z88.8 Allergy status to other drugs, medicaments and biological substances
CPT/HCPCS: 71046; 71260; 80048; 80053; 80202; 82565; 83605; 83880; 85025; 85027; 85379; 87040; 87070; 87205; 93005; 94640; 94760

== ENCOUNTER 2019-08-16 10:29 | Inpatient (IN) | payer MEDICARE, OTHER ==
[2019-08-16] MEDS ORDERED: methylPREDNISolone SOD SUCCI 125 MG/2 ML VIAL IV STA (11:23)
[2019-08-16] MEDS ORDERED: IPRATROPIUM-ALBUTEROL 3 ML NEB INHALATION PRN (11:23)
[2019-08-16] MEDS ORDERED: HEPARIN SODIUM,PORCINE 5,000 UNIT/ML 1 ML VIAL SQ SCH (11:30)
[2019-08-16] MEDS: NICOTINE 14MG/24HR PATCH TRANSDERM SCH (11:48)
[2019-08-16] MEDS: SODIUM CHLORIDE 0.9% 1,000 ML IV SCH ×2 (11:53→23:20)
[2019-08-16 12:11] LABS: Basophils # (A) 0.3 k/uL (0-0.2); Basophils % (A) 1 %; Eosinophils # (A) 0.1 k/uL (0-0.7); Eosinophils % (A) 1 %; HCT 43.8 % (39.0-53.0); HGB 13.7 gm/dL (13.0-17.5); Hypochromasia Slight; Lymphocytes # (A) 0.5 k/uL (1.0-4.8); Lymphocytes % (A) 2 %; MCHC 31.3 g/dL (31.0-37.0); MCV 92.7 fL (80.0-100.0); Mean Platelet Volume 7.1; Monocytes # (A) 0.8 k/uL (0-1.0); Monocytes % (A) 3 %; Neutrophils # (A) 21.9 k/uL (1.3-7.7); Neutrophils % (A) 92 %; Platelet Count 331 k/uL (150-450); RBC 4.73 m/uL (4.30-5.90); RDW 14.5 % (11.5-15.5); WBC 23.7 k/uL (3.8-10.6)
[2019-08-16 12:12] LABS: Glucose,Whole Blood 79 mg/dL (75-99)
--- NOTE | 2019-08-16 12:19 | XR ---
EXAMINATION TYPE: XR chest 1V portable DATE OF EXAM: 08/16/2019 COMPARISON: 07/16/2019 HISTORY: Hypoxemia. History of pneumonia. Shortness of breath. TECHNIQUE: Single frontal view of the chest is obtained. FINDINGS: Pulmonary hyperinflation with relative lucency of the left lung in comparison to the right . Improved aeration of the right upper lobe opacity with numerous internal cystic components. Fibrosi s is seen at the right lung base, although coarsened interstitium is improved from the prior. Enlarge ment of the main pulmonary arteries suggesting underlying pulmonary arterial hypertension. Elongated but nonenlarged Cardia mediastinal silhouette. Surgical clips in the left upper quadrant. IMPRESSION: Improved aeration of the right upper lobe and right lung base in comparison the prior wi th chronic fibrotic change and cystic/small cavitary lesions of the right lung apex. Extensive emphys ematous changes with findings suggesting underlying pulmonary arterial hypertension are also seen.
[2019-08-16] MEDS: INSULIN ASPART (NovoLOG) 100 UNIT/ML VIAL SQ SCH ×3 (12:25→20:42)
[2019-08-16 12:26] LABS: ALT 12 U/L (4-49); AST 21 U/L (17-59); African American GFR (CKD) >90 (>60 ml/min/1.73 sqM); Albumin 3.2 g/dL (3.5-5.0); Alkaline Phosphatase 56 U/L (38-126); Anion Gap 4 mmol/L; Blood Urea Nitrogen 21 mg/dL (9-20); Calcium 8.3 mg/dL (8.4-10.2); Carbon Dioxide 35 mmol/L (22-30); Chloride 95 mmol/L (98-107); Glucose 83 mg/dL (74-99); Non-African American GFR(CKD) >90 (>60 ml/min/1.73 sqM); Potassium 4.7 mmol/L (3.5-5.1); Sodium 134 mmol/L (137-145); Total Bilirubin 0.8 mg/dL (0.2-1.3)
[2019-08-16] MEDS: LEVOFLOXACIN 500MG-D5W PMX 500 MG in DEXTROSE/WATER 1 100ML.BAG IVPB SCH (12:26)
[2019-08-16] MEDS: IPRATROPIUM-ALBUTEROL 3 ML NEB INHALATION SCH ×3 (12:29→20:12)
[2019-08-16] MEDS ORDERED: POLYETHYLENE GLYCOL 3350 17 GM POWD.PACK PO PRN (13:07)
--- NOTE | 2019-08-16 13:32 | XR ---
EXAMINATION TYPE: XR chest 2V DATE OF EXAM: 08/16/2019 COMPARISON: 08/16/2019 TECHNIQUE: PA and lateral views submitted. HISTORY: Shortness of breath FINDINGS: Pulmonary hyperinflation with relative lucency of the left lung in comparison to the right. Improved aeration of the right upper lobe opacity with numerous internal cystic components. Fibrosis is seen at the right lung base, although coarsened interstitium is improved from the prior. Enlargement of the main pulmonary arteries suggesting underlying pulmonary arterial hypertension. Audrey ngated but nonenlarged Cardia mediastinal silhouette. Surgical clips in the left upper quadrant. Hype rtrophic and degenerative change of the spine. IMPRESSION: 1. COPD with right upper lobe area of consolidation stable in appearance. Correlate for pneumonia. Cy stic or cavitary lesions of the right upper lobe not excluded. 2. Correlate for pulmonary arterial hypertension.
[2019-08-16 15:24] VITALS: BMI 14.3
--- NOTE | 2019-08-16 15:48 | P.CNPUL ---
History of Present Illness Consult date: 08/16/19 Reason for consult: dyspnea, cough, COPD, pneumonia Chief complaint: Cough shortness of breath, sputum production History of present illness: This is a 68-year-old male with extensive history of end-stage COPD is on home oxygen came into the hospital from primary care's office due to productive sputum shortness of breath and worsening respiratory condition from baseline, patient has been recently hospitalized for right upper lobe pneumonia has improved with IV antibiotics due to progressive symptoms he admitted into the hospital, patient has been started on IV steroids breathing treatment antibiotics labs are significant for white cell count of 23,000, chest x-ray showed right upper lobe consolidation with cavitary changes Review of Systems All systems: negative Past Medical History Past Medical History: Asthma, COPD, Deep Vein Thrombosis (DVT), GERD/Reflux, Pneumonia, Pulmonary Embolus (PE), Respiratory Disorder, Vascular Disorder Additional Past Medical History / Comment(s): End stage COPD, chronic hypoxic respiratory failure, O2 at 4L/NC ATC, R upper lobe spiculating scar, bronchitis, R pulmonary embolism, bilateral lower leg DVTs, PAD-pt recently told he needed surgery but was not a candidate d/t lung disease, neuropathy bilateral feet/legs, pt states he was told he had an EKG that indicated he had had a ME at some time, multiple oseoporotic thracic compression fractures, chronic chest pa in/worse on R side, severe PUD with partial gastrectomy/vagotomy, gastroparesis, diverticulitis, hepatitis C exposure but pt tested negative, constipation. History of Any Multi-Drug Resistant Organisms: None Reported Past Surgical History: Appendectomy Additional Past Surgical History / Comment(s): Partial gastrectomy/partial vagotomy/teminal vagotomy/Billroth's procedure, EGDs, colonoscopy, appendectomy but appendix was healthy-had gangrenous fat removed with appendix, arteriogram/PVR Past Anesthesia/Blood Transfusion Reactions: No Reported Reaction Past Psychological History: Anxiety, Depression Smoking Status: Former smoker Past Alcohol Use History: None Reported Additional Past Alcohol Use History / Comment(s): Pt started smoking in 1969 and quit in 2015 but resumed smoking in 2016 but quit again in June 2019. Pt states in years past he drank a 6 pack of beer a day but now rarely. Past Drug Use History: None Reported - Past Family History Mother Additional Family Medical History / Comment(s): Mother had some sort of brain surgery and . Pt unsure if surgery was for an aneurysm or mass. Father History Unknown: Yes Family Medical History: Cancer Additional Family Medical History / Comment(s): lymphoma Medications and Allergies Home Medications Medication Instructions Recorded Confirmed Type Apixaban [Eliquis] 2.5 mg PO BID 12/29/17 08/16/19 History Omeprazole 40 mg PO DAILY 03/14/19 08/16/19 History Cefuroxime Axetil [Ceftin] 500 mg PO BID 08/16/19 08/16/19 History Furosemide [Lasix] 20 mg PO DAILY 08/16/19 08/16/19 History Morphine Sulfate ER [Ms Contin] 30 mg PO Q12HR 08/16/19 08/16/19 History Polyethylene Glycol 3350 [Miralax] 17 gm PO DAILY PRN 08/16/19 08/16/19 History Potassium Chloride [K-Tab ER] 8 meq PO DAILY 08/16/19 08/16/19 History methylPREDNISolone [Medrol Dose See Taper PO DIRECTED 08/16/19 08/16/19 History Pack] Allergies Allergy/AdvReac Type Severity Reaction Status Date / Time theophylline Allergy Rash/Hives Verified 08/16/19 11:39 metaproterenol sulfate AdvReac shaking Verified 08/16/19 11:39 [From Alupent] Physical Exam Vitals: Vital Signs Temp Pulse Pulse Resp BP BP Pulse Ox 08/16/19 14:30 98.3 F 77 18 94/59 96 08/16/19 12:42 116 H 08/16/19 12:30 113 H 96 08/16/19 11:07 59 L 22 87 L 08/16/19 11:06 98.3 F 77 22 100/63 99/60 77 L Intake and Output 08/16/19 08/16/19 08/16/19 06:59 14:59 22:59 Intake Total 350 Output Total 200 Balance 150 Intake: Oral 350 Output: Urine 200 Other: # Voids 1 Weight 42.638 kg 42.638 kg - Constitutional General appearance: disheveled, mild distress, thin - EENT Eyes: EOMI, PERRLA, normal appearance ENT: normal oropharynx Ears: bilateral: normal - Neck Carotids: bilateral: upstroke normal - Respiratory Respiratory: bilateral: diminished, wheezing - Cardiovascular Rhythm: regular Heart sounds: normal: S1, S2 - Gastrointestinal General gastrointestinal: normal bowel sounds - Neurologic Neurologic: CNII-XII intact - Musculoskeletal Musculoskeletal: gait normal, generalized weakness, strength equal bilaterally - Psychiatric Psychiatric: A&O x's 3, appropriate affect, intact judgment & insight Results - Laboratory Findings CBC and BMP: 08/16/19 11:54 08/16/19 11:54 Abnormal lab findings: Abnormal Labs 08/16/19 08/16/19 11:54 11:54 WBC 23.7 H Neutrophils # 21.9 H Lymphocytes # 0.5 L Basophils # 0.3 H Sodium 134 L Chloride 95 L Carbon Dioxide 35 H BUN 21 H Calcium 8.3 L Total Protein 6.0 L Albumin 3.2 L - Diagnostic Findings Chest x-ray: report reviewed, image reviewed (X-rays and labs reviewed finding as above) Assessment and Plan Assessment: Right upper lobe necrotic pneumonia End-stage COPD with chronic hypoxic hypercapnic respiratory failure Protein calorie malnourishment of severe category Generalized weakness Plan: Overall plan includes Gentle rehydration Supplemental oxygen Broad-spectrum antibiotics Breathing treatment Sputum studies Computed tomography scan of the chest without contrast Further recommendations pending plan of care as per clinical response of the patient Time with Patient: Greater than 30
[2019-08-16 17:03] LABS: Glucose,Whole Blood 119 mg/dL (75-99)
[2019-08-16] MEDS: methylPREDNISolone SOD SUCCI 125 MG/2 ML VIAL IV SCH ×2 (17:34→23:18)
[2019-08-16] MEDS: BUDESONIDE 0.5 MG/2 ML NEBU INHALATION SCH (20:12)
[2019-08-16 20:23] LABS: Glucose,Whole Blood 166 mg/dL (75-99)
--- NOTE | 2019-08-16 20:37 | CT ---
EXAMINATION TYPE: CT chest wo con DATE OF EXAM: 08/16/2019 COMPARISON: CT 07/12/2019; chest radiograph 08/16/2019 HISTORY: SOB CT DLP: 118.3 mGycm. Automated Exposure Control for Dose Reduction was Utilized. TECHNIQUE: CT scan of the thorax is performed without IV contrast. FINDINGS: Compared with 07/12/2019 CT, the volume of consolidative right lung parenchyma has markedly improved, with approximately 15% remaining at this time. There is no mediastinal or left hilar adeno lan, but there is difficulty in assessing the right hilum without IV contrast. It appears there is some prominence in the lymph of the right hilum, but there is adjacent consolidative lung parenchyma. Tracheomegaly is redemonstrated with mild cylindrical diffuse bronchiectasis. A few scattered tiny fi lling defects are noted, likely phlegm. The extensive COPD changes, including hyperlucency of the lef t lower lobe greater than that of the right lower lobe, is redemonstrated. There is no evidence of pulmonary edema. Negative for pneumothorax or pleural effusion. There are prominent left and right coronary calcifications. No cardiomegaly or pericardial effusion. Caliber of the central pulmonary arteries is prominent, suggesting pulmonary hypertension. No acute skeletal findings. IMPRESSION: Marked interval improvement when compared to the 1218 CT
[2019-08-16] MEDS: APIXABAN 2.5 MG TABLET PO SCH (20:41)
[2019-08-16] MEDS: MORPHINE SULFATE ER 30 MG TABLET PO SCH (20:41)
[2019-08-17] MEDS: methylPREDNISolone SOD SUCCI 125 MG/2 ML VIAL IV SCH ×3 (05:45→17:16)
--- NOTE | 2019-08-17 06:11 | HP ---
HISTORY AND PHYSICAL This 68-year-old white male, admitted with COPD exacerbation, nausea, vomiting, dehydration. Oxygenation on 2-3 L in the mid 80s is admitted with pneumonia versus gastroenteritis with dehydration. He is on , antibiotics steroids and fluid rehydration. He had a white count 23,000. Chest x-ray right lower lobe consolidation with cavitary changes. Pulmonary consult with Dr. Lowery is there. PAST MEDICAL HISTORY: Asthma, COPD, DVT, GERD, pneumonia, pulmonary embolism, vascular disorder. He normally wears oxygen at 4 L nasal cannula. He has history of pulmonary embolism, compression fractures, chronic pain, PUD, gastroparesis, diverticulitis, hepatitis C exposure. SURGERIES: Partial gastrectomy, partial vagotomy, Billroth procedure. REVIEW OF SYSTEMS: Fourteen-point review of systems negative except for mentioned in HPI. HOME MEDICATIONS: See list. FAMILY HISTORY: Father with lymphoma. Mother had brain surgery and . PHYSICAL EXAMINATION: Temp 98.3, pulse is mid 100 to 120s, respiratory rate 22 to 28, blood pressure is 94 to 100 over 50s to 60s, O2 is 87 to 77 on 4 L. CARDIOVASCULAR: S1, S2. LUNGS: Show rales at the base, scattered wheeze. HEMATOLOGY: Negative Homans. PSYCH: Fair mood and affect. NEUROLOGIC: Alert and oriented x3. GI: Has decreased bowel sounds x4. ASSESSMENT: 1. Chronic obstructive pulmonary disease exacerbation. 2. Right lower lobe pneumonia. 3. Acute hypoxemic respiratory distress. 4. Gastroparesis. 5. Gastroenteritis. 6. Dehydration. Continue with fluid rehydration, IV steroids, IV antibiotics. Pulmonary consult. Rehydration. Prognosis guarded. MMODL / IJN: [id number] /
[2019-08-17 07:15] LABS: Glucose,Whole Blood 196 mg/dL (75-99)
[2019-08-17] MEDS: MORPHINE SULFATE ER 30 MG TABLET PO SCH ×2 (07:15→20:24)
[2019-08-17] MEDS: POTASSIUM CHLORIDE ER 10 MEQ TAB.ER.PRT PO SCH (07:16)
[2019-08-17] MEDS: APIXABAN 2.5 MG TABLET PO SCH ×2 (07:16→20:24)
[2019-08-17] MEDS: FUROSEMIDE 20 MG TAB PO SCH (07:17)
[2019-08-17] MEDS: NICOTINE 14MG/24HR PATCH TRANSDERM SCH ×2 (07:17→08:32)
[2019-08-17] MEDS: PANTOPRAZOLE 40 MG TABLET PO SCH (07:58)
[2019-08-17] MEDS: INSULIN ASPART (NovoLOG) 100 UNIT/ML VIAL SQ SCH ×4 (08:03→22:30)
[2019-08-17] MEDS: IPRATROPIUM-ALBUTEROL 3 ML NEB INHALATION SCH ×4 (08:23→21:39)
[2019-08-17] MEDS: BUDESONIDE 0.5 MG/2 ML NEBU INHALATION SCH ×2 (08:23→21:38)
--- NOTE | 2019-08-17 09:20 | P.PN ---
Subjective On-call hospitalist covering for Dr. Mason on Tuesday and over the weekend This is a pleasant 68 years old male with past medical history of asthma/COPD, deep venous thrombosis, GERD, pneumonia, pulmonary embolism, end-stage COPD, chronic hypoxic respiratory failure and 4 L oxygen. Nasal cannula, bilateral lower extremity neuropathy, compression fractures of the thoracic spine history of severe peptic ulcer disease status post Lesa gastrectomy, gastroparesis, Patient was admitted yesterday, Due to dyspnea with cough and productive ph legm, patient has recently admitted to the hospital for right upper lobe pneumonia at that time it was improved with IV antibiotics. chest x-rays showing COPD and right upper consolidation. CT of the thorax showing improvement consolidation in the right upper lung compared to last time was approximately 15% treatment and at this time per radiologist, with possible lymphadenopathy as well as COPD. Patient still have dyspnea with a dry cough. He is not sure why abdominal ultrasound was ordered but is complaining of from constipation, he had only little bowel movement yesterday. This is smoking for a while, occasional alcohol no illicit drugs. He follows up with anticoagulation clinic in [place] and they lowered his Eliquis 44.5 mg Vitas looks stable. He was hypotensive on admission 99/60. WBC is 20 3.7K, creatinine 0.6. Sugar is controlled. Liver enzymes not elevated. Patient is already on Levaquin, Solu-Medrol 60 mg, nicotine patch, and normal saline at 75 mL/h Objective - Vital Signs Vital signs: Vital Signs Temp 97.1 F L 08/17/19 05:00 Pulse 84 08/17/19 08:37 Resp 18 08/17/19 08:00 BP 116/63 08/17/19 05:00 Pulse Ox 97 08/17/19 05:00 Intake & Output 08/16/19 08/17/19 08/17/19 18:59 06:59 18:59 Intake Total 350 500 Output Total 200 Balance 150 500 Weight 42.638 kg Intake: Oral 350 500 Output: Urine 200 Other: # Voids 1 0 - Exam GENERAL: The patient is alert and oriented x3, not in any acute distress. Well developed, well nourished. HEENT: Pupils are round and equally reacting to light. EOMI. No scleral icterus. No conjunctival pallor. Normocephalic, atraumatic. No pharyngeal erythema. No thyromegaly. CARDIOVASCULAR: S1 and S2 present. No murmurs, rubs, or gallops. -PULMONARY: Chest is clear to auscultation, bilateral scattered wheezing. BRCA breathing in the right upper lung ABDOMEN: Soft, nontender, nondistended, normoactive bowel sounds. No palpable organomegaly. MUSCULOSKELETAL: No joint swelling or deformity. EXTREMITIES: No cyanosis, clubbing, or pedal edema. NEUROLOGICAL: Gross neurological examination did not reveal any focal deficits. SKIN: No rashes. no petechiae. - Labs CBC & Chem 7: 08/16/19 11:54 08/16/19 11:54 Labs: Abnormal Lab Results - Last 24 Hours (Table) 08/16/19 08/16/19 08/16/19 Range/Units 11:54 11:54 17:02 WBC 23.7 H (3.8-10.6) k/uL Neutrophils # 21.9 H (1.3-7.7) k/uL Lymphocytes # 0.5 L (1.0-4.8) k/uL Basophils # 0.3 H (0-0.2) k/uL Sodium 134 L (137-145) mmol/L Chloride 95 L (98-107) mmol/L Carbon Dioxide 35 H (22-30) mmol/L BUN 21 H (9-20) mg/dL POC Glucose (mg/dL) 119 H (75-99) mg/dL Calcium 8.3 L (8.4-10.2) mg/dL Total Protein 6.0 L (6.3-8.2) g/dL Albumin 3.2 L (3.5-5.0) g/dL 08/16/19 08/17/19 Range/Units 20:12 07:14 WBC (3.8-10.6) k/uL Neutrophils # (1.3-7.7) k/uL Lymphocytes # (1.0-4.8) k/uL Basophils # (0-0.2) k/uL Sodium (137-145) mmol/L Chloride (98-107) mmol/L Carbon Dioxide (22-30) mmol/L BUN (9-20) mg/dL POC Glucose (mg/dL) 166 H 196 H (75-99) mg/dL Calcium (8.4-10.2) mg/dL Total Protein (6.3-8.2) g/dL Albumin (3.5-5.0) g/dL Assessment and Plan Assessment: Acute COPD exacerbation in view of his end stage COPD Right upper lobe consolidation with a cavitary changes, recently treated for right upper lobe pneumonia. Possible pulmonary hypertension History of bilateral DVT and pulmonary embolism Chronic hypoxic respiratory failure on 4 L oxygen via nasal cannula Peripheral neuropathy Compression fracture of thoracic spine history of severe peptic ulcer disease status post Lesa gastrectomy, gastr oparesis Plan: This is a pleasant 68 years old male who presents with acute exacerbation of end-stage COPD, with right upper cavitary consolidation in view of recent pneum onia. Continue with antibiotics, steroids, bronchodilator. Continue with nicotine patch. Gentle hydration. Follow-up recommendation by resource agent Labs and medication were reviewed.. Continue same treatment. Continue with symptomatic treatment. Resume home medication. Monitor lytes and vitals. DVT and GI prophylaxis. Further recommendations of the clinical course of the patient DVT prophylaxis: Eliquis GI Prophylaxis: Protonix PT/OT: Pending Prognosis is guarded
--- NOTE | 2019-08-17 09:53 | US ---
EXAMINATION TYPE: US abdomen complete DATE OF EXAM: 08/17/2019 COMPARISON: NONE CLINICAL HISTORY: emesis. EXAM MEASUREMENTS: Liver Length: 14.0 cm Gallbladder Wall: 0.4 cm CBD: 0.7 cm Spleen: unable to well visualize Right Kidney: 10.5 x 3.4 x 5.8 cm Left Kidney: 9.3 x 4.2 x 4.5 cm Pancreas: prominent duct Liver: wnl Gallbladder: wall slightly thickened Evidence for sonographic Walsh's sign: no CBD: ?intrahepatic duct dilatation Spleen: unable to well visualize due to patient size, 5'8, 94lbs, Right Kidney: echogenic compared to liver parenchyma. Correlate for chronic medical renal disease. Left Kidney: wnl Upper IVC: wnl Abd Aorta: calcifications noted IMPRESSION: 1. Gallbladder wall slightly thickened measuring 4 mm with no definite gallstones correlate clinicall y. Correlation with HIDA scan could be performed. Cholecystitis in the differential diagnosis. 2. Suggestion of mild intrahepatic biliary ductal dilation. 3. Pancreas is a prominent duct was otherwise obscured. Recommend CT of the abdomen pelvis given the limitation of the exam to assess for biliary obstruction or ampullary mass
[2019-08-17] MEDS: LEVOFLOXACIN 500MG-D5W PMX 500 MG in DEXTROSE/WATER 1 100ML.BAG IVPB SCH (11:00)
[2019-08-17 12:12] LABS: Glucose,Whole Blood 100 mg/dL (75-99)
[2019-08-17] MEDS: SODIUM CHLORIDE 0.9% 1,000 ML IV SCH (13:00)
[2019-08-17] MEDS ORDERED: DOCUSATE 100 MG CAP PO PRN (14:51)
[2019-08-17 16:51] LABS: Glucose,Whole Blood 124 mg/dL (75-99)
[2019-08-17 22:09] LABS: Glucose,Whole Blood 163 mg/dL (75-99)
[2019-08-18] MEDS: methylPREDNISolone SOD SUCCI 125 MG/2 ML VIAL IV SCH ×4 (00:06→17:49)
[2019-08-18 07:10] LABS: Glucose,Whole Blood 118 mg/dL (75-99)
[2019-08-18] MEDS: INSULIN ASPART (NovoLOG) 100 UNIT/ML VIAL SQ SCH ×4 (07:40→21:22)
[2019-08-18] MEDS: NICOTINE 14MG/24HR PATCH TRANSDERM SCH (07:41)
[2019-08-18] MEDS: POTASSIUM CHLORIDE ER 10 MEQ TAB.ER.PRT PO SCH (07:41)
[2019-08-18] MEDS: APIXABAN 2.5 MG TABLET PO SCH ×2 (07:41→21:22)
[2019-08-18] MEDS: FUROSEMIDE 20 MG TAB PO SCH (07:41)
[2019-08-18] MEDS: PANTOPRAZOLE 40 MG TABLET PO SCH (07:41)
[2019-08-18] MEDS: MORPHINE SULFATE ER 30 MG TABLET PO SCH ×2 (07:42→21:22)
[2019-08-18 07:47] LABS: Basophils % (A) 0 %; Eosinophils % (A) 0 %; Hypochromasia Slight; Lymphocytes # (A) 0.6 k/uL (1.0-4.8); Lymphocytes % (A) 4 %; MCH 29.3 pg (25.0-35.0); MCHC 32.2 g/dL (31.0-37.0); Mean Platelet Volume 7.5; Monocytes # (A) 0.2 k/uL (0-1.0); Monocytes % (A) 1 %; Neutrophils # (A) 17.2 k/uL (1.3-7.7); Neutrophils % (A) 95 %; Platelet Count 232 k/uL (150-450); RBC 3.62 m/uL (4.30-5.90); RDW 14.8 % (11.5-15.5); WBC 18.1 k/uL (3.8-10.6)
[2019-08-18 07:57] LABS: ALT 9 U/L (4-49); AST 16 U/L (17-59); African American GFR (CKD) >90 (>60 ml/min/1.73 sqM); Albumin 2.3 g/dL (3.5-5.0); Alkaline Phosphatase 48 U/L (38-126); Anion Gap 4 mmol/L; Bilirubin, Delta 0.2 mg/dL (0.0-0.2); Bilirubin,Unconjugated 0.1 mg/dL (0.0-1.1); Blood Urea Nitrogen 17 mg/dL (9-20); Carbon Dioxide 28 mmol/L (22-30); Chloride 102 mmol/L (98-107); Glucose 111 mg/dL (74-99); Non-African American GFR(CKD) >90 (>60 ml/min/1.73 sqM); Potassium 4.2 mmol/L (3.5-5.1); Sodium 134 mmol/L (137-145); Total Bilirubin 0.3 mg/dL (0.2-1.3); Total Protein 4.7 g/dL (6.3-8.2)
[2019-08-18 08:04] LABS: HGB 10.6 gm/dL (13.0-17.5)
[2019-08-18] MEDS: IPRATROPIUM-ALBUTEROL 3 ML NEB INHALATION SCH ×4 (08:19→19:32)
[2019-08-18] MEDS: BUDESONIDE 0.5 MG/2 ML NEBU INHALATION SCH ×2 (08:19→19:32)
[2019-08-18 11:57] LABS: Glucose,Whole Blood 111 mg/dL (75-99)
[2019-08-18] MEDS: LEVOFLOXACIN 500 MG TAB PO SCH (12:13)
--- NOTE | 2019-08-18 13:24 | P.PN ---
Subjective On-call hospitalist covering for Dr. Mason on Tuesday and over the weekend This is a pleasant 68 years old male with past medical history of asthma/COPD, deep venous thrombosis, GERD, pneumonia, pulmonary embolism, end-stage COPD, chronic hypoxic respiratory failure and 4 L oxygen. Nasal cannula, bilateral lower extremity neuropathy, compression fractures of the thoracic spine history of severe peptic ulcer disease status post Lesa gastrectomy, gastroparesis, Patient was admitted yesterday, Due to dyspnea with cough and productive ph legm, patient has recently admitted to the hospital for right upper lobe pneumonia at that time it was improved with IV antibiotics. chest x-rays showing COPD and right upper consolidation. CT of the thorax showing improvement consolidation in the right upper lung compared to last time was approximately 15% treatment and at this time per radiologist, with possible lymphadenopathy as well as COPD. Patient still have dyspnea with a dry cough. He is not sure why abdominal ultrasound was ordered but is complaining of from constipation, he had only little bowel movement yesterday. This is smoking for a while, occasional alcohol no illicit drugs. He follows up with anticoagulation clinic in [place] and they lowered his Eliquis 44.5 mg Vitas looks stable. He was hypotensive on admission 99/60. WBC is 20 3.7K, creatinine 0.6. Sugar is controlled. Liver enzymes not elevated. Patient is already on Levaquin, Solu-Medrol 60 mg, nicotine patch, and normal saline at 75 mL/h 08/18/2019 Patient states that his shortness of breath is improving, I still have dry cough with no chest pain, he states that sometimes she has bloating and he surgery for peptic ulcer disease in the past. Patient still been treated for advanced end- stage COPD, he still on steroids, however ultrasound there is possible to this mild biliary dilatation, with prominence of the pancreas, therefore we are asking for GI evaluation to rule out ampullary mass or biliary obstruction. Patient informed and discussed with him and he agrees Objective - Vital Signs Vital signs: Vital Signs Temp 97.5 F L 08/18/19 07:00 Pulse 88 08/18/19 08:34 Resp 18 08/18/19 07:00 BP 142/78 08/18/19 07:00 Pulse Ox 99 08/18/19 07:00 Intake & Output 08/17/19 08/18/19 08/18/19 18:59 06:59 18:59 Other: Voiding Method Bedside Commode Bedside Commode # Voids 1 350 # Bowel Movements 1 - Exam GENERAL: The patient is alert and oriented x3, not in any acute distress. Well developed, well nourished. HEENT: Pupils are round and equally reacting to light. EOMI. No scleral icterus. No conjunctival pallor. Normocephalic, atraumatic. No pharyngeal erythema. No thyromegaly. CARDIOVASCULAR: S1 and S2 present. No murmurs, rubs, or gallops. -PULMONARY: Chest is clear to auscultation, bilateral scattered wheezing. BRCA breathing in the right upper lung ABDOMEN: Soft, nontender, nondistended, normoactive bowel sounds. No palpable organomegaly. MUSCULOSKELETAL: No joint swelling or deformity. EXTREMITIES: No cyanosis, clubbing, or pedal edema. NEUROLOGICAL: Gross neurological examination did not reveal any focal deficits. SKIN: No rashes. no petechiae. - Labs CBC & Chem 7: 08/18/19 07:05 08/18/19 07:05 Labs: Abnormal Lab Results - Last 24 Hours (Table) 08/17/19 08/17/19 08/17/19 Range/Units 12:10 16:49 22:02 WBC (3.8-10.6) k/uL RBC (4.30-5.90) m/uL Hgb (13.0-17.5) gm/dL Hct (39.0-53.0) % Neutrophils # (1.3-7.7) k/uL Lymphocytes # (1.0-4.8) k/uL Sodium (137-145) mmol/L Creatinine (0.66-1.25) mg/dL Glucose (74-99) mg/dL POC Glucose (mg/dL) 100 H 124 H 163 H (75-99) mg/dL Calcium (8.4-10.2) mg/dL AST (17-59) U/L Total Protein (6.3-8.2) g/dL Albumin (3.5-5.0) g/dL 08/18/19 08/18/19 08/18/19 Range/Units 07:05 07:05 07:08 WBC 18.1 H (3.8-10.6) k/uL RBC 3.62 L (4.30-5.90) m/uL Hgb 10.6 L D (13.0-17.5) gm/dL Hct 33.0 L (39.0-53.0) % Neutrophils # 17.2 H (1.3-7.7) k/uL Lymphocytes # 0.6 L (1.0-4.8) k/uL Sodium 134 L (137-145) mmol/L Creatinine 0.49 L (0.66-1.25) mg/dL Glucose 111 H (74-99) mg/dL POC Glucose (mg/dL) 118 H (75-99) mg/dL Calcium 8.0 L (8.4-10.2) mg/dL AST 16 L (17-59) U/L Total Protein 4.7 L (6.3-8.2) g/dL Albumin 2.3 L (3.5-5.0) g/dL Assessment and Plan Assessment: Acute COPD exacerbation in view of his end stage COPD Right upper lobe consolidation with a cavitary changes, recently treated for ri ght upper lobe pneumonia. Pancreas with mild biliary dilatation, rule out bile obstruction versus tumor Possible pulmonary hypertension History of bilateral DVT and pulmonary embolism Chronic hypoxic respiratory failure on 4 L oxygen via nasal cannula Peripheral neuropathy Compression fracture of thoracic spine history of severe peptic ulcer disease status post sleeve gastrectomy, and vagectomy gastroparesis Plan: This is a pleasant 68 years old male who presents with acute exacerbation of end-stage COPD, with right upper cavitary consolidation in view of recent pneumonia. Continue with antibiotics, steroids, bronchodilator. Continue with nicotine patch. Gentle hydration. Follow-up recommendation by indoor sports centre manager. Consult GI for biliary lesion Labs and medication were reviewed.. Continue same treatment. Continue with symptomatic treatment. Resume home medication. Monitor lytes and vitals. DVT and GI prophylaxis. Further recommendations of the clinical course of the patient DVT prophylaxis: Eliquis GI Prophylaxis: Protonix PT/OT: Pending Prognosis is guarded
[2019-08-18] MEDS: SODIUM CHLORIDE 0.9% 1,000 ML IV SCH (14:36)
[2019-08-18 16:54] LABS: Glucose,Whole Blood 122 mg/dL (75-99)
[2019-08-18 20:26] LABS: Glucose,Whole Blood 134 mg/dL (75-99)
--- NOTE | 2019-08-18 22:25 | P.CONS ---
History of Present Illness - Reason for Consult Consult date: 08/18/19 Abnormal ultrasound abdomen Requesting physician: Giovanni E Sheet - Chief Complaint Cough, Shortness of breath - History of Present Illness 68-year-old male with a medical history significant for COPD, DVT, GERD, pneumonia, pulmonary embolism, neuropathy, prior history of peptic ulcer disease requiring a Billroth II hysterectomy who presented to the hospital complaining o f shortness of breath and cough. The patient was recently admitted to the hospital with a right upper lobe pneumonia which time he was treated with IV antibiotics. She presented back to the hospital complaining of shortness of breath and productive cough. Currently the patient is being treated with antibiotic therapy and steroid therapy. He had a ultrasound of the abdomen performed with findings of mild gallbladder wall thickening, mild intrahepatic biliary dilation and mild pancreatic duct dilation with an ampullary mass not excluded. The patient denies any prior history of bile duct pathology. No history of pancreatic pathology or pancreatitis. No history of heavy alcohol use. No nausea or vomiting reported. Liver enzymes normal on laboratory evaluation with total bilirubin 0.3, alkaline phosphatase 48, AST 16 and ALT 9. Review of Systems REVIEW OF SYSTEMS: CONSTITUTIONAL: Denies any fevers, chills, weight change or fatigue. CARDIOVASCULAR: Denies any chest pain, palpitations high or low blood pressures RESPIRATORY: Chronic shortness of breath, worsened recently with productive cough reported. GENITOURINARY: No dysuria or hematuria. MUSCULOSKELETAL: No weakness reported. SKIN: Denies any new rashes or lesions, jaundice or pallor. PSYCHIATRIC: Denies any depression or anxiety. NEUROLOGY: Denies headache, denies any new focal deficits. EARS/NOSE/THROAT: No recent hearing change, congestion, nasal discharge or sore throat. EYES: No pain in eyes, discharge or change in vision. GASTROINTESTINAL: As per HPI. Past Medical History Past Medical History: Asthma, COPD, Deep Vein Thrombosis (DVT), GERD/Reflux, Pneumonia, Pulmonary Embolus (PE), Respiratory Disorder, Vascular Disorder Additional Past Medical History / Comment(s): End stage COPD, chronic hypoxic respiratory failure, O2 at 4L/NC ATC, R upper lobe spiculating scar, bronchitis, R pulmonary embolism, bilateral lower leg DVTs, PAD-pt recently told he needed surgery but was not a candidate d/t lung disease, neuropathy bilateral feet/legs, pt states he was told he had an EKG that indicated he had had a FL at some time, multiple oseoporotic thracic compression fractures, chronic chest pain/worse on R side, severe PUD with partial gastrectomy/vagotomy, gastroparesis, diverticulitis, hepatitis C exposure but pt tested negative, constipation. History of Any Multi-Drug Resistant Organisms: None Reported Past Surgical History: Appendectomy Additional Past Surgical History / Comment(s): Partial gastrectomy/partial vagotomy/teminal vagotomy/Billroth's procedure, EGDs, colonoscopy, appendectomy but appendix was healthy-had gangrenous fat removed with appendix, arteriogram/PVR Past Anesthesia/Blood Transfusion Reactions: No Reported Reaction Past Psychological History: Anxiety, Depression Smoking Status: Former smoker Past Alcohol Use History: None Reported Additional Past Alcohol Use History / Comment(s): Pt started smoking in 1969 and quit in 2015 but resumed smoking in 2016 but quit again in June 2019. Pt states in years past he drank a 6 pack of beer a day but now rarely. Past Drug Use History: None Reported - Past Family History Mother Additional Family Medical History / Comment(s): Mother had some sort of brain surgery and . Pt unsure if surgery was for an aneurysm or mass. Father History Unknown: Yes Family Medical History: Cancer Additional Family Medical History / Comment(s): lymphoma Medications and Allergies Home Medications Medication Instructions Recorded Confirmed Type Apixaban [Eliquis] 2.5 mg PO BID 12/29/17 08/16/19 History Omeprazole 40 mg PO DAILY 03/14/19 08/16/19 History Cefuroxime Axetil [Ceftin] 500 mg PO BID 08/16/19 08/16/19 History Furosemide [Lasix] 20 mg PO DAILY 08/16/19 08/16/19 History Morphine Sulfate ER [Ms Contin] 30 mg PO Q12HR 08/16/19 08/16/19 History Polyethylene Glycol 3350 [Miralax] 17 gm PO DAILY PRN 08/16/19 08/16/19 History Potassium Chloride [K-Tab ER] 8 meq PO DAILY 08/16/19 08/16/19 History methylPREDNISolone [Medrol Dose See Taper PO DIRECTED 08/16/19 08/16/19 History Pack] Allergies Allergy/AdvReac Type Severity Reaction Status Date / Time theophylline Allergy Rash/Hives Verified 08/16/19 11:39 metaproterenol sulfate AdvReac shaking Verified 08/16/19 11:39 [From Alupent] Physical Exam Vitals: Vital Signs Temp Pulse Pulse Pulse Resp BP Pulse Ox 08/18/19 12:03 86 08/18/19 11:50 84 08/18/19 08:34 88 08/18/19 08:19 88 08/18/19 07:00 97.5 F L 68 18 142/78 99 08/17/19 22:03 97.9 F 85 19 108/68 100 08/17/19 21:53 84 08/17/19 21:40 82 08/17/19 18:41 82 08/17/19 18:32 76 98 08/17/19 14:38 97.9 F 68 18 112/68 95 08/17/19 12:20 86 Intake and Output 08/17/19 08/18/19 08/18/19 22:59 06:59 14:59 Other: Voiding Method Bedside Commode # Voids 350 # Bowel Movements 1 On physical examination, patient appears comfortable in no apparent distress. HEAD: Normocephalic, atraumatic. EYES: No scleral icterus. No conjunctival injection. MOUTH: No lesions, tongue midline. NECK: Trachea midline, no gross abnormalities. CHEST: Decreased air entry in all lung weir. HEART: Regular rate and rhythm. ABDOMEN: Soft, with scarring from prior surgeries noted. Bowel sounds are positive. No organomegaly. No guarding or rigidity. EXTREMITIES: No pedal edema. SKIN: No rashes, no jaundice. NEUROLOGIC: Alert and oriented x3. No focal deficits. Results CBC & Chem 7: 08/18/19 07:05 08/18/19 07:05 Labs: Abnormal Lab Results - Last 24 Hours (Table) 08/17/19 08/17/19 08/18/19 Range/Units 16:49 22:02 07:05 WBC 18.1 H (3.8-10.6) k/uL RBC 3.62 L (4.30-5.90) m/uL Hgb 10.6 L D (13.0-17.5) gm/dL Hct 33.0 L (39.0-53.0) % Neutrophils # 17.2 H (1.3-7.7) k/uL Lymphocytes # 0.6 L (1.0-4.8) k/uL Sodium (137-145) mmol/L Creatinine (0.66-1.25) mg/dL Glucose (74-99) mg/dL POC Glucose (mg/dL) 124 H 163 H (75-99) mg/dL Calcium (8.4-10.2) mg/dL AST (17-59) U/L Total Protein (6.3-8.2) g/dL Albumin (3.5-5.0) g/dL 08/18/19 08/18/19 08/18/19 Range/Units 07:05 07:08 11:52 WBC (3.8-10.6) k/uL RBC (4.30-5.90) m/uL Hgb (13.0-17.5) gm/dL Hct (39.0-53.0) % Neutrophils # (1.3-7.7) k/uL Lymphocytes # (1.0-4.8) k/uL Sodium 134 L (137-145) mmol/L Creatinine 0.49 L (0.66-1.25) mg/dL Glucose 111 H (74-99) mg/dL POC Glucose (mg/dL) 118 H 111 H (75-99) mg/dL Calcium 8.0 L (8.4-10.2) mg/dL AST 16 L (17-59) U/L Total Protein 4.7 L (6.3-8.2) g/dL Albumin 2.3 L (3.5-5.0) g/dL US - abdomen: report reviewed (Ultrasound of the abdomen with findings of mild gallbladder wall thickening and intrahepatic biliary dilation with mild pancreatic duct dilation and ampullary mass not excluded.) Assessment and Plan (1) Abnormal ultrasound of abdomen Narrative/Plan: 68-year-old with multiple medical comorbidities including recent diagnosis of pneumonia and severe COPD presented back to the hospital with shortness of breath and cough with sputum production. Currently being treated with steroid therapy and antibiotics. The patient did have ultrasound of the abdomen performed with findings of mild intrahepatic biliary dilation, mild thickening of the gallbladder, mild pancreatic ductal ampullary mass not ruled out. Denies any prior history of pancreatic, hepatic or biliary pathology. Liver enzymes within normal limits. No significant family history. Current Visit: Yes Status: Acute Code(s): R93.5 - ABN FINDINGS ON DX IMAGING OF ABD REGIONS, INC RETROPERITON SNOMED Code(s): 73493865544470453 Plan: Supportive care Okay for diet Continue to monitor CBC, CMP Continue treatment of underlying comorbidities Would recommend computed tomography scan of the abdomen with pancreatic protocol for further evaluation No plan for endoscopic evaluation at this time Thank you for allowing us to participate in the care of the patient
[2019-08-19] MEDS: methylPREDNISolone SOD SUCCI 125 MG/2 ML VIAL IV SCH ×4 (00:23→18:12)
[2019-08-19] MEDS: SODIUM CHLORIDE 0.9% 1,000 ML IV SCH (06:06)
[2019-08-19 07:31] LABS: Glucose,Whole Blood 89 mg/dL (75-99)
[2019-08-19] MEDS: FUROSEMIDE 20 MG TAB PO SCH (07:57)
[2019-08-19] MEDS: INSULIN ASPART (NovoLOG) 100 UNIT/ML VIAL SQ SCH ×4 (07:57→21:48)
[2019-08-19] MEDS: APIXABAN 2.5 MG TABLET PO SCH ×2 (07:58→21:47)
[2019-08-19] MEDS: PANTOPRAZOLE 40 MG TABLET PO SCH (07:58)
[2019-08-19] MEDS: NICOTINE 14MG/24HR PATCH TRANSDERM SCH (07:58)
[2019-08-19] MEDS: POTASSIUM CHLORIDE ER 10 MEQ TAB.ER.PRT PO SCH (07:58)
[2019-08-19] MEDS: MORPHINE SULFATE ER 30 MG TABLET PO SCH ×2 (08:00→21:46)
[2019-08-19 08:08] LABS: ALT 17 U/L (4-49); AST 28 U/L (17-59); African American GFR (CKD) >90 (>60 ml/min/1.73 sqM); Albumin 2.5 g/dL (3.5-5.0); Alkaline Phosphatase 50 U/L (38-126); Anion Gap 3 mmol/L; Bilirubin, Delta 0.3 mg/dL (0.0-0.2); Bilirubin,Unconjugated 0.1 mg/dL (0.0-1.1); Blood Urea Nitrogen 19 mg/dL (9-20); Calcium 8.4 mg/dL (8.4-10.2); Carbon Dioxide 30 mmol/L (22-30); Chloride 103 mmol/L (98-107); Glucose 97 mg/dL (74-99); Non-African American GFR(CKD) >90 (>60 ml/min/1.73 sqM); Potassium 5.7 mmol/L (3.5-5.1); Sodium 136 mmol/L (137-145); Total Bilirubin 0.4 mg/dL (0.2-1.3); Total Protein 5.1 g/dL (6.3-8.2)
[2019-08-19] MEDS: IPRATROPIUM-ALBUTEROL 3 ML NEB INHALATION SCH ×4 (08:56→20:05)
[2019-08-19] MEDS: BUDESONIDE 0.5 MG/2 ML NEBU INHALATION SCH ×2 (08:56→20:05)
[2019-08-19 11:45] LABS: Glucose,Whole Blood 100 mg/dL (75-99)
[2019-08-19] MEDS: LEVOFLOXACIN 500 MG TAB PO SCH (12:29)
[2019-08-19] MEDS ORDERED: IOPAMIDOL CONTRAST (ORAL USE) VIAL PO PRN (12:47)
--- NOTE | 2019-08-19 16:08 | P.PN ---
Subjective Progress Note Date: 08/17/19 Principal diagnosis: Right upper lobe necrotic pneumonia End-stage COPD with chronic hypoxic hypercapnic respiratory failure Protein calorie malnourishment of severe category Generalized weakness 08/17/2019, patient seen eval examined during the round cuff congestion shortnes s of breath is still present unable to get sputum so far, small fraction is still there, some adenopathy may be present, will continue current plan of care This is a 68-year-old male with extensive history of end-stage COPD is on home oxygen came into the hospital from primary care's office due to productive sputum shortness of breath and worsening respiratory condition from baseline, patient has been recently hospitalized for right upper lobe pneumonia has improved with IV antibiotics due to progressive symptoms he admitted into the hospital, patient has been started on IV steroids breathing treatment antibiotics labs are significant for white cell count of 23,000, chest x-ray showed right upper lobe consolidation with cavitary changes Objective - Vital Signs Vital signs: Vital Signs Temp 97.9 F 08/17/19 14:38 Pulse 68 08/17/19 14:38 Resp 18 08/17/19 14:38 BP 112/68 08/17/19 14:38 Pulse Ox 95 08/17/19 14:38 Intake & Output 08/16/19 08/17/19 08/17/19 18:59 06:59 18:59 Intake Total 350 500 Output Total 200 Balance 150 500 Weight 42.638 kg Intake: Oral 350 500 Output: Urine 200 Other: Voiding Method Bedside Commode # Voids 1 0 1 - Exam - Constitutional General appearance: disheveled, mild distress, thin - EENT Eyes: EOMI, PERRLA, normal appearance ENT: normal oropharynx Ears: bilateral: normal - Neck Carotids: bilateral: upstroke normal - Respiratory Respiratory: bilateral: diminished, wheezing - Cardiovascular Rhythm: regular Heart sounds: normal: S1, S2 - Gastrointestinal General gastrointestinal: normal bowel sounds - Neurologic Neurologic: CNII-XII intact - Musculoskeletal Musculoskeletal: gait normal, generalized weakness, strength equal bilaterally - Psychiatric Psychiatric: A&O x's 3, appropriate affect, intact judgment & insight - Labs CBC & Chem 7: 08/18/19 07:05 08/19/19 07:20 Labs: Abnormal Lab Results - Last 24 Hours (Table) 08/16/19 08/16/19 08/17/19 Range/Units 17:02 20:12 07:14 POC Glucose (mg/dL) 119 H 166 H 196 H (75-99) mg/dL 08/17/19 Range/Units 12:10 POC Glucose (mg/dL) 100 H (75-99) mg/dL Assessment and Plan Assessment: Right upper lobe necrotic pneumonia End-stage COPD with chronic hypoxic hypercapnic respiratory failure Protein calorie malnourishment of severe category Generalized weakness Plan: Overall plan includes Gentle rehydration Supplemental oxygen Broad-spectrum antibiotics Breathing treatment Sputum studies Computed tomography scan of the chest without contrast reviewed and compared with the one done in July finding discussed with the patient Further recommendations pending plan of care as per clinical response of the patient Time with Patient: Greater than 30
--- NOTE | 2019-08-19 16:09 | P.PN ---
Subjective Progress Note Date: 08/19/19 Principal diagnosis: Right upper lobe necrotic pneumonia End-stage COPD with chronic hypoxic hypercapnic respiratory failure Protein calorie malnourishment of severe category Generalized weakness 08/19/2019, patient seen eval examined during the rounds continue to get antibio tic remain on supplemental oxygen his sputum studies finally send this morning results are pending, patient computed tomography scan has been reviewed discussed with the patient, 08/17/2019, patient seen eval examined during the round cuff congestion shortness of breath is still present unable to get sputum so far, small fraction is still there, some adenopathy may be present, will continue current plan of care This is a 68-year-old male with extensive history of end-stage COPD is on home oxygen came into the hospital from primary care's office due to productive sputum shortness of breath and worsening respiratory condition from baseline, patient has been recently hospitalized for right upper lobe pneumonia has improved with IV antibiotics due to progressive symptoms he admitted into the hospital, patient has been started on IV steroids breathing treatment antibiotics labs are significant for white cell count of 23,000, chest x-ray showed right upper lobe consolidation with cavitary changes Objective - Vital Signs Vital signs: Vital Signs Temp 98.3 F 08/19/19 13:25 Pulse 68 08/19/19 16:06 Resp 18 08/19/19 13:25 BP 148/78 08/19/19 13:25 Pulse Ox 94 L 08/19/19 13:25 Intake & Output 08/18/19 08/19/19 08/19/19 18:59 06:59 18:59 Intake Total 1100 800 Balance 1100 800 Intake: Intake, IV Titration 500 Amount Sodium Chloride 0.9% 1, 500 000 ml @ 50 mls/hr IV . Q20H [facility] Rx#:[id number] Oral 600 800 Other: Voiding Method Bedside Commode # Voids 3 2 - Exam - Constitutional General appearance: disheveled, mild distress, thin - EENT Eyes: EOMI, PERRLA, normal appearance ENT: normal oropharynx Ears: bilateral: normal - Neck Carotids: bilateral: upstroke normal - Respiratory Respiratory: bilateral: diminished, wheezing - Cardiovascular Rhythm: regular Heart sounds: normal: S1, S2 - Gastrointestinal General gastrointestinal: normal bowel sounds - Neurologic Neurologic: CNII-XII intact - Musculoskeletal Musculoskeletal: gait normal, generalized weakness, strength equal bilaterally - Psychiatric Psychiatric: A&O x's 3, appropriate affect, intact judgment & insight - Labs CBC & Chem 7: 08/18/19 07:05 08/19/19 07:20 Labs: Abnormal Lab Results - Last 24 Hours (Table) 08/18/19 08/18/19 08/19/19 Range/Units 16:51 20:18 07:20 Sodium 136 L (137-145) mmol/L Potassium 5.7 H (3.5-5.1) mmol/L Creatinine 0.58 L (0.66-1.25) mg/dL POC Glucose (mg/dL) 122 H 134 H (75-99) mg/dL Delta Bilirubin 0.3 H (0.0-0.2) mg/dL Total Protein 5.1 L (6.3-8.2) g/dL Albumin 2.5 L (3.5-5.0) g/dL 08/19/19 Range/Units 11:44 Sodium (137-145) mmol/L Potassium (3.5-5.1) mmol/L Creatinine (0.66-1.25) mg/dL POC Glucose (mg/dL) 100 H (75-99) mg/dL Delta Bilirubin (0.0-0.2) mg/dL Total Protein (6.3-8.2) g/dL Albumin (3.5-5.0) g/dL Assessment and Plan Assessment: Right upper lobe necrotic pneumonia End-stage COPD with chronic hypoxic hypercapnic respiratory failure Protein calorie malnourishment of severe category Generalized weakness Plan: Overall plan includes Gentle rehydration Supplemental oxygen Broad-spectrum antibiotics Breathing treatment Sputum studies Computed tomography scan of the chest without contrast reviewed and compared with the one done in July finding discussed with the patient Further recommendations pending plan of care as per clinical response of the patient Time with Patient: Greater than 30
--- NOTE | 2019-08-19 16:47 | CT ---
EXAMINATION TYPE: CT pancreas biphase DATE OF EXAM: 08/19/2019 COMPARISON: 02/03/2016 HISTORY: abnormal abdominal US CT DLP: 650.1 mGycm CONTRAST: CT scan of the abdomen and pelvis is performed without Oral Contrast and with IV Contrast, patient i njected with 100 mL of Isovue 300. Dual phase evaluation of the pancreas performed. FINDINGS: LUNG BASES-: No visible nodule. No infiltrate. LIVER/GB: No calcified gallstones. There is a small amount of fluid surrounding the gallbladder how ever there is evidence of mild ascites. No gallbladder wall thickening seen. There is mild intrahepat ic biliary ductal prominence. Common bile duct is mildly dilated at 8.6 mm. PANCREAS: There is atrophic change of the pancreas. No obvious pancreatic mass or pancreatic duct dil atation. No obvious ampullary lesion. If symptoms persist consider MRI. SPLEEN: No splenic enlargement. No lesion seen. ADRENALS: No nodule. No thickening. KIDNEYS/BLADDER: No hydronephrosis. No nephrolithiasis. No distinct renal mass. Urinary bladder g rossly unremarkable. BOWEL: Poorly distended bowel Limited evaluation. Small amount of ascites noted. LYMPH NODES: No greater than 1cm abdominal or pelvic lymph nodes are appreciated. AORTA: No significant abnormality. OSSEOUS STRUCTURES: No significant abnormality is seen. 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 IMPRESSION: 1. No distinct common bile duct lesion or ampullary lesion on this limited study. Pancreas appears to be atrophic. Mild CBD dilatation and apparent biliary ductal dilatation. Consider MRCP.
[2019-08-19 17:40] LABS: Glucose,Whole Blood 107 mg/dL (75-99)
--- NOTE | 2019-08-19 20:04 | P.PN ---
Subjective Progress Note Date: 08/19/19 Principal diagnosis: Abnormal ultrasound abdomen Patient is seen sitting bedside. He is tolerated diet. No nausea or vomiting. He is reporting some constipation with no bowel movement over the past few days. Objective - Vital Signs Vital signs: Vital Signs Temp 98.3 F 08/19/19 13:25 Pulse 68 08/19/19 16:06 Resp 18 08/19/19 13:25 BP 148/78 08/19/19 13:25 Pulse Ox 94 L 08/19/19 13:25 Intake & Output 08/19/19 08/19/19 08/20/19 06:59 18:59 06:59 Intake Total 800 Balance 800 Intake: Oral 800 Other: Voiding Method Bedside Commode # Voids 3 2 - Exam On physical examination, patient appears comfortable in no apparent distress. HEAD: Normocephalic, atraumatic. EYES: No scleral icterus. No conjunctival injection. MOUTH: No lesions, tongue midline. NECK: Trachea midline, no gross abnormalities. ABDOMEN: Soft, thin. Bowel sounds are positive. No organomegaly. No guarding or rigidity. EXTREMITIES: No pedal edema. SKIN: No rashes, no jaundice. NEUROLOGIC: Alert and oriented x3. No focal deficits. - Labs CBC & Chem 7: 08/18/19 07:05 08/19/19 07:20 Labs: Abnormal Lab Results - Last 24 Hours (Table) 08/18/19 08/19/19 08/19/19 Range/Units 20:18 07:20 11:44 Sodium 136 L (137-145) mmol/L Potassium 5.7 H (3.5-5.1) mmol/L Creatinine 0.58 L (0.66-1.25) mg/dL POC Glucose (mg/dL) 134 H 100 H (75-99) mg/dL Delta Bilirubin 0.3 H (0.0-0.2) mg/dL Total Protein 5.1 L (6.3-8.2) g/dL Albumin 2.5 L (3.5-5.0) g/dL 08/19/19 Range/Units 17:37 Sodium (137-145) mmol/L Potassium (3.5-5.1) mmol/L Creatinine (0.66-1.25) mg/dL POC Glucose (mg/dL) 107 H (75-99) mg/dL Delta Bilirubin (0.0-0.2) mg/dL Total Protein (6.3-8.2) g/dL Albumin (3.5-5.0) g/dL Assessment and Plan (1) Abnormal ultrasound of abdomen Narrative/Plan: 68-year-old with multiple medical comorbidities including recent diagnosis of pneumonia and severe COPD presented back to the hospital with shortness of breath and cough with sputum production. Currently being treated with steroid therapy and antibiotics. The patient did have ultrasound of the abdomen performed with findings of mild intrahepatic biliary dilation, mild thickening of the gallbladder, mild pancreatic ductal ampullary mass not ruled out. Denies any prior history of pancreatic, hepatic or biliary pathology. Liver enzymes within normal limits. No significant family history. Computed tomography scan of the abdomen performed with pancreas protocol with no distinct ampullary or biliary pathology noted. Current Visit: Yes Status: Acute Code(s): R93.5 - ABN FINDINGS ON DX IMAGING OF ABD REGIONS, INC RETROPERITON SNOMED Code(s): 50189746255538025 Plan: Supportive care Okay for diet Continue to monitor CBC, CMP Continue treatment of underlying comorbidities Computed tomography scan of the abdomen with pancreas protocol with no distinct ampullary or biliary pathology noted, no further evaluation required at this time in the setting of normal liver enzymes No plan for endoscopic evaluation at this time Thank you for allowing us to participate in the care of the patient, the GI service was normal as well as other questions or concerns
[2019-08-19 20:51] LABS: Glucose,Whole Blood 180 mg/dL (75-99)
[2019-08-19] MEDS ORDERED: LACTULOSE 20 GM/30 ML CUP PO ONE (21:30)
--- NOTE | 2019-08-19 22:08 | P.PN ---
Subjective On-call hospitalist covering for Dr. Mason on Tuesday and over the weekend This is a pleasant 68 years old male with past medical history of asthma/COPD, deep venous thrombosis, GERD, pneumonia, pulmonary embolism, end-stage COPD, chronic hypoxic respiratory failure and 4 L oxygen. Nasal cannula, bilateral lower extremity neuropathy, compression fractures of the thoracic spine history of severe peptic ulcer disease status post Lesa gastrectomy, gastroparesis, Patient was admitted yesterday, Due to dyspnea with cough and productive ph legm, patient has recently admitted to the hospital for right upper lobe pneumonia at that time it was improved with IV antibiotics. chest x-rays showing COPD and right upper consolidation. CT of the thorax showing improvement consolidation in the right upper lung compared to last time was approximately 15% treatment and at this time per radiologist, with possible lymphadenopathy as well as COPD. Patient still have dyspnea with a dry cough. He is not sure why abdominal ultrasound was ordered but is complaining of from constipation, he had only little bowel movement yesterday. This is smoking for a while, occasional alcohol no illicit drugs. He follows up with anticoagulation clinic in [place] and they lowered his Eliquis 44.5 mg Vitas looks stable. He was hypotensive on admission 99/60. WBC is 20 3.7K, creatinine 0.6. Sugar is controlled. Liver enzymes not elevated. Patient is already on Levaquin, Solu-Medrol 60 mg, nicotine patch, and normal saline at 75 mL/h 08/18/2019 Patient states that his shortness of breath is improving, I still have dry cough with no chest pain, he states that sometimes she has bloating and he surgery for peptic ulcer disease in the past. Patient still been treated for advanced end- stage COPD, he still on steroids, however ultrasound there is possible to this mild biliary dilatation, with prominence of the pancreas, therefore we are asking for GI evaluation to rule out ampullary mass or biliary obstruction. Patient informed and discussed with him and he agrees 08/19/2019 Patient still has dyspnea, it looks similar to yesterday. He is saturating 94% within the ureter. Palmaris from the case. Sodium 136, potassium 5.7, creatinine normal at 0.5. WBC is coming down to 18.1 K. GI input is appreciated and they recommended CT of the abdomen, pancreatic protocol which is ordered, discussed with patient and he agrees Objective - Vital Signs Vital signs: Vital Signs Temp 98.3 F 08/19/19 13:25 Pulse 77 08/19/19 13:25 Resp 18 08/19/19 13:25 BP 148/78 08/19/19 13:25 Pulse Ox 94 L 08/19/19 13:25 Intake & Output 08/18/19 08/19/19 08/19/19 18:59 06:59 18:59 Intake Total 1100 800 Balance 1100 800 Intake: Intake, IV Titration 500 Amount Sodium Chloride 0.9% 1, 500 000 ml @ 50 mls/hr IV . Q20H [facility] Rx#:[id number] Oral 600 800 Other: Voiding Method Bedside Commode # Voids 3 2 - Exam GENERAL: The patient is alert and oriented x3, not in any acute distress. Well developed, well nourished. HEENT: Pupils are round and equally reacting to light. EOMI. No scleral icterus. No conjunctival pallor. Normocephalic, atraumatic. No pharyngeal erythema. No thyromegaly. CARDIOVASCULAR: S1 and S2 present. No murmurs, rubs, or gallops. -PULMONARY: Chest is clear to auscultation, bilateral scattered wheezing. BRCA breathing in the right upper lung ABDOMEN: Soft, nontender, nondistended, normoactive bowel sounds. No palpable organomegaly. MUSCULOSKELETAL: No joint swelling or deformity. EXTREMITIES: No cyanosis, clubbing, or pedal edema. NEUROLOGICAL: Gross neurological examination did not reveal any focal deficits. SKIN: No rashes. no petechiae. - Labs CBC & Chem 7: 08/18/19 07:05 08/19/19 07:20 Labs: Abnormal Lab Results - Last 24 Hours (Table) 08/18/19 08/18/19 08/19/19 Range/Units 16:51 20:18 07:20 Sodium 136 L (137-145) mmol/L Potassium 5.7 H (3.5-5.1) mmol/L Creatinine 0.58 L (0.66-1.25) mg/dL POC Glucose (mg/dL) 122 H 134 H (75-99) mg/dL Delta Bilirubin 0.3 H (0.0-0.2) mg/dL Total Protein 5.1 L (6.3-8.2) g/dL Albumin 2.5 L (3.5-5.0) g/dL 08/19/19 Range/Units 11:44 Sodium (137-145) mmol/L Potassium (3.5-5.1) mmol/L Creatinine (0.66-1.25) mg/dL POC Glucose (mg/dL) 100 H (75-99) mg/dL Delta Bilirubin (0.0-0.2) mg/dL Total Protein (6.3-8.2) g/dL Albumin (3.5-5.0) g/dL Assessment and Plan Assessment: Acute COPD exacerbation in view of his end stage COPD Right upper lobe consolidation with a cavitary changes, recently treated for right upper lobe pneumonia. Pancreas with mild biliary dilatation, rule out bile obstruction versus tumor Possible pulmonary hypertension History of bilateral DVT and pulmonary embolism Chronic hypoxic respiratory failure on 4 L oxygen via nasal cannula Peripheral neuropathy Compression fracture of thoracic spine history of severe peptic ulcer disease status post sleeve gastrectomy, and vagectomy gastroparesis Plan: This is a pleasant 68 years old male who presents with acute exacerbation of end-stage COPD, with right upper cavitary consolidation in view of recent pneumonia. Continue with antibiotics, steroids, bronchodilator. Continue with nicotine patch. Gentle hydration. Follow-up recommendation by mechanical shovel operator. Consult GI for biliary lesion Labs and medication were reviewed.. Continue same treatment. Continue with symptomatic treatment. Resume home medication. Monitor lytes and vitals. DVT and GI prophylaxis. Further recommendations of the clinical course of the patient DVT prophylaxis: Eliquis GI Prophylaxis: Protonix PT/OT: Pending Prognosis is guarded
[2019-08-20] MEDS: SODIUM CHLORIDE 0.9% 1,000 ML IV SCH ×2 (01:18→20:19)
[2019-08-20] MEDS: methylPREDNISolone SOD SUCCI 125 MG/2 ML VIAL IV SCH ×5 (01:18→23:52)
[2019-08-20 07:20] LABS: Glucose,Whole Blood 93 mg/dL (75-99)
[2019-08-20 07:43] LABS: African American GFR (CKD) >90 (>60 ml/min/1.73 sqM); Anion Gap 5 mmol/L; Blood Urea Nitrogen 18 mg/dL (9-20); Calcium 7.8 mg/dL (8.4-10.2); Carbon Dioxide 26 mmol/L (22-30); Chloride 103 mmol/L (98-107); Glucose 89 mg/dL (74-99); Non-African American GFR(CKD) >90 (>60 ml/min/1.73 sqM); Potassium 3.8 mmol/L (3.5-5.1); Sodium 134 mmol/L (137-145)
[2019-08-20] MEDS: BUDESONIDE 0.5 MG/2 ML NEBU INHALATION SCH ×2 (08:20→21:55)
[2019-08-20] MEDS: IPRATROPIUM-ALBUTEROL 3 ML NEB INHALATION SCH ×4 (08:20→21:55)
[2019-08-20] MEDS: INSULIN ASPART (NovoLOG) 100 UNIT/ML VIAL SQ SCH ×4 (08:20→20:21)
[2019-08-20] MEDS: APIXABAN 2.5 MG TABLET PO SCH ×2 (08:50→20:21)
[2019-08-20] MEDS: POTASSIUM CHLORIDE ER 10 MEQ TAB.ER.PRT PO SCH (08:50)
[2019-08-20] MEDS: FUROSEMIDE 20 MG TAB PO SCH (08:50)
[2019-08-20] MEDS: PANTOPRAZOLE 40 MG TABLET PO SCH (08:50)
[2019-08-20] MEDS: NICOTINE 14MG/24HR PATCH TRANSDERM SCH (08:52)
[2019-08-20] MEDS: MORPHINE SULFATE ER 30 MG TABLET PO SCH ×2 (08:52→20:20)
[2019-08-20 12:05] LABS: Glucose,Whole Blood 89 mg/dL (75-99)
[2019-08-20] MEDS: LEVOFLOXACIN 500 MG TAB PO SCH (13:39)
[2019-08-20 16:53] LABS: Glucose,Whole Blood 88 mg/dL (75-99)
[2019-08-20 20:31] LABS: Glucose,Whole Blood 138 mg/dL (75-99)
[2019-08-20 21:59] VITALS: RESP 20
--- NOTE | 2019-08-20 22:44 | PN ---
PROGRESS NOTE This patient is a 68-year-old white male admitted with dehydration, COPD exacerbation, tracheobronchitis. He states he has vomiting after he eats so much food. GI consult cleared him for discharge; not going to do any endoscopy; follow him up as outpatient. Cardiovascular: S1, S2. Lungs are clear. GI: Distended, tenderness to palpation in epigastric area. Hematology: Negative Homans. ASSESSMENT: 1. Dehydration. 2. Chronic obstructive pulmonary disease exacerbation. 3. Tracheobronchitis. 4. Persistent emesis. Cleared for discharge from GI. Will discharge him home tomorrow on oral medications, as he is greatly improved with IV medications for his breathing. MMODL / IJN: [id number] /
[2019-08-21] MEDS: methylPREDNISolone SOD SUCCI 125 MG/2 ML VIAL IV SCH ×2 (06:00→12:17)
[2019-08-21 07:04] VITALS: TEMP 97.5
[2019-08-21] MEDS: INSULIN ASPART (NovoLOG) 100 UNIT/ML VIAL SQ SCH ×2 (07:11→12:41)
[2019-08-21] MEDS: FUROSEMIDE 20 MG TAB PO SCH (07:16)
[2019-08-21 07:28] LABS: Glucose,Whole Blood 89 mg/dL (75-99)
[2019-08-21] MEDS: BUDESONIDE 0.5 MG/2 ML NEBU INHALATION SCH (07:30)
[2019-08-21] MEDS: IPRATROPIUM-ALBUTEROL 3 ML NEB INHALATION SCH ×2 (07:30→12:02)
[2019-08-21] MEDS: MORPHINE SULFATE ER 30 MG TABLET PO SCH (08:48)
[2019-08-21] MEDS: NICOTINE 14MG/24HR PATCH TRANSDERM SCH (08:50)
[2019-08-21] MEDS: PANTOPRAZOLE 40 MG TABLET PO SCH (08:50)
[2019-08-21 08:51] VITALS: BP 156/84
[2019-08-21 09:55] LABS: African American GFR (CKD) >90 (>60 ml/min/1.73 sqM); Anion Gap 5 mmol/L; Blood Urea Nitrogen 18 mg/dL (9-20); Calcium 8.3 mg/dL (8.4-10.2); Carbon Dioxide 30 mmol/L (22-30); Chloride 99 mmol/L (98-107); Glucose 74 mg/dL (74-99); Non-African American GFR(CKD) >90 (>60 ml/min/1.73 sqM); Sodium 134 mmol/L (137-145)
[2019-08-21] MEDS ORDERED: LIDOCAINE 1% INJ 10MG/ML (20 ML MDV) ONE (10:01)
[2019-08-21] MEDS ORDERED: IV FLUID CONTINUATION 1,000 ML IV ONE (10:01)
[2019-08-21] MEDS ORDERED: PROPOFOL 10 MG/ML 20 ML VIAL IV ONE (10:01)
[2019-08-21] MEDS ORDERED: MIDAZOLAM 2 MG/2 ML VIAL ONE (10:01)
[2019-08-21] MEDS ORDERED: SODIUM CHLORIDE 0.9% 500 ML IV ONE (10:15)
--- NOTE | 2019-08-21 10:16 | P.OP ---
Date of Procedure: 08/21/19 Preoperative Diagnosis: Abdominal distention, pain Postoperative Diagnosis: Gastritis Esophageal candidiasis Procedure(s) Performed: EGD Anesthesia: MAC Surgeon: Donte Resendez Pathology: other (Antrum, esophagus) Condition: stable Disposition: PACU Description of Procedure: The patient's placed on the endoscopy table in the lateral position. He received IV sedation. The gastroscope placed oropharynx and passed into the esophagus into the stomach. Patient had evidence of previous partial gastrect krunal. The gastrojejunostomy was visualized. There is no evidence of any obstruction of the gastric jejunostomy. This point the stomach was examined there. Be some minimal inflammation. A random biopsy site was performed. Scope was then withdrawn there was no significant hiatal hernia. The GE junction was at 40 cms. The distal esophagus appeared normal. In the mid and proximal esophagus is evidence of candidiasis this area is biopsied. Scope was then withdrawn. Patient top she'll well.
--- NOTE | 2019-08-21 10:18 | P.GSCN ---
History of Present Illness Consult date: 08/20/19 Reason for Consult: Abdominal bloating, pain History of present illness: This a 68-year-old male referred from Dr. Nadir Rubio. Patient had complaints of abdominal pain and distention. Patient states he feels bloating when he eats. He's had some trouble swallowing. Patient states she's had a previous partial gastrectomy due to peptic ulcer disease. Past Medical History Past Medical History: Asthma, COPD, Deep Vein Thrombosis (DVT), GERD/Reflux, Pneumonia, Pulmonary Embolus (PE), Respiratory Disorder, Vascular Disorder Additional Past Medical History / Comment(s): End stage COPD, chronic hypoxic respiratory failure, O2 at 4L/NC ATC, R upper lobe spiculating scar, bronchitis, R pulmonary embolism, bilateral lower leg DVTs, PAD-pt recently told he needed surgery but was not a candidate d/t lung disease, neuropathy bilateral feet/legs, pt states he was told he had an EKG that indicated he had had a NC at some time, multiple oseoporotic thracic compression fractures, chronic chest pain/worse on R side, severe PUD with partial gastrectomy/vagotomy, gastroparesis, diverticulitis, hepatitis C exposure but pt tested negative, constipation. History of Any Multi-Drug Resistant Organisms: None Reported Past Surgical History: Appendectomy Additional Past Surgical History / Comment(s): Partial gastrectomy/partial vagotomy/teminal vagotomy/Billroth's procedure, EGDs, colonoscopy, appendectomy but appendix was healthy-had gangrenous fat removed with appendix, arteriogram/PVR Past Anesthesia/Blood Transfusion Reactions: No Reported Reaction Past Psychological History: Anxiety, Depression Smoking Status: Former smoker Past Alcohol Use History: None Reported Additional Past Alcohol Use History / Comment(s): Pt started smoking in 1969 and quit in 2015 but resumed smoking in 2016 but quit again in June 2019. Pt states in years past he drank a 6 pack of beer a day but now rarely. Past Drug Use History: None Reported - Past Family History Mother Additional Family Medical History / Comment(s): Mother had some sort of brain surgery and . Pt unsure if surgery was for an aneurysm or mass. Father History Unknown: Yes Family Medical History: Cancer Additional Family Medical History / Comment(s): lymphoma Medications and Allergies Home Medications Medication Instructions Recorded Confirmed Type Apixaban [Eliquis] 2.5 mg PO BID 12/29/17 08/16/19 History Omeprazole 40 mg PO DAILY 03/14/19 08/16/19 History Cefuroxime Axetil [Ceftin] 500 mg PO BID 08/16/19 08/16/19 History Furosemide [Lasix] 20 mg PO DAILY 08/16/19 08/16/19 History Morphine Sulfate ER [Ms Contin] 30 mg PO Q12HR 08/16/19 08/16/19 History Polyethylene Glycol 3350 [Miralax] 17 gm PO DAILY PRN 08/16/19 08/16/19 History Potassium Chloride [K-Tab ER] 8 meq PO DAILY 08/16/19 08/16/19 History methylPREDNISolone [Medrol Dose See Taper PO DIRECTED 08/16/19 08/16/19 History Pack] Allergies Allergy/AdvReac Type Severity Reaction Status Date / Time theophylline Allergy Rash/Hives Verified 08/16/19 11:39 metaproterenol sulfate AdvReac shaking Verified 08/16/19 11:39 [From Alupent] Surgical - Exam Vital Signs Temp Pulse Resp BP Pulse Ox 98.3 F 77 22 99/60 77 L 08/16/19 11:06 08/16/19 11:06 08/16/19 11:06 08/16/19 11:06 08/16/19 11:06 - General well developed, no distress, cachectic - Eyes PERRL - ENT normal pinna - Neck no masses - Respiratory normal expansion - Cardiovascular Rhythm: regular - Abdomen Abdomen: soft, non tender Results - Labs 08/18/19 07:05 08/21/19 08:35 Abnormal Lab Results - Last 24 Hours (Table) 08/20/19 08/21/19 Range/Units 20:20 08:35 Sodium 134 L (137-145) mmol/L Creatinine 0.51 L (0.66-1.25) mg/dL POC Glucose (mg/dL) 138 H (75-99) mg/dL Calcium 8.3 L (8.4-10.2) mg/dL Microbiology - Last 24 Hours (Table) 08/19/19 09:02 Gram Stain - Final Sputum Sputum Culture - Final Chikis albicans Diabetes panel 08/21/19 Range/Units 08:35 Sodium 134 L (137-145) mmol/L Potassium 4.0 (3.5-5.1) mmol/L Chloride 99 (98-107) mmol/L Carbon Dioxide 30 (22-30) mmol/L BUN 18 (9-20) mg/dL Creatinine 0.51 L (0.66-1.25) mg/dL Glucose 74 (74-99) mg/dL Calcium 8.3 L (8.4-10.2) mg/dL Calcium panel 08/21/19 Range/Units 08:35 Calcium 8.3 L (8.4-10.2) mg/dL Pituitary panel 08/21/19 Range/Units 08:35 Sodium 134 L (137-145) mmol/L Potassium 4.0 (3.5-5.1) mmol/L Chloride 99 (98-107) mmol/L Carbon Dioxide 30 (22-30) mmol/L BUN 18 (9-20) mg/dL Creatinine 0.51 L (0.66-1.25) mg/dL Glucose 74 (74-99) mg/dL Calcium 8.3 L (8.4-10.2) mg/dL Adrenal panel 08/21/19 Range/Units 08:35 Sodium 134 L (137-145) mmol/L Potassium 4.0 (3.5-5.1) mmol/L Chloride 99 (98-107) mmol/L Carbon Dioxide 30 (22-30) mmol/L BUN 18 (9-20) mg/dL Creatinine 0.51 L (0.66-1.25) mg/dL Glucose 74 (74-99) mg/dL Calcium 8.3 L (8.4-10.2) mg/dL Assessment and Plan Assessment: History of peptic ulcer disease with partial gastrectomy. Patient will undergo EGD in a.m.
[2019-08-21] MEDS: APIXABAN 2.5 MG TABLET PO SCH (10:44)
[2019-08-21] MEDS: POTASSIUM CHLORIDE ER 10 MEQ TAB.ER.PRT PO SCH (10:44)
[2019-08-21 12:04] VITALS: PULSE 64
[2019-08-21] MEDS: LEVOFLOXACIN 500 MG TAB PO SCH (12:17)
[2019-08-21 12:34] LABS: Glucose,Whole Blood 164 mg/dL (75-99)
[2019-08-21] MEDS ORDERED: NYSTATIN 100,000 UNIT/ML SUSP 500,000 UNIT/5 ML CUP PO SCH (13:00)
--- NOTE | 2019-08-21 13:58 | P.PN ---
Subjective Progress Note Date: 08/21/19 Principal diagnosis: Right upper lobe necrotic pneumonia End-stage COPD with chronic hypoxic hypercapnic respiratory failure Protein calorie malnourishment of severe category Generalized weakness 08/21/2019, patient seen eval examined during the rounds he is a status post end oscopy by Dr. Rutherford for persistent emesis patient has history of Billroth II resection 08/19/2019, patient seen eval examined during the rounds continue to get antibiotic remain on supplemental oxygen his sputum studies finally send this morning results are pending, patient computed tomography scan has been reviewed discussed with the patient, 08/17/2019, patient seen eval examined during the round cuff congestion shortness of breath is still present unable to get sputum so far, small fraction is still there, some adenopathy may be present, will continue current plan of care This is a 68-year-old male with extensive history of end-stage COPD is on home oxygen came into the hospital from primary care's office due to productive sputum shortness of breath and worsening respiratory condition from baseline, patient has been recently hospitalized for right upper lobe pneumonia has improved with IV antibiotics due to progressive symptoms he admitted into the hospital, patient has been started on IV steroids breathing treatment antibiotics labs are significant for white cell count of 23,000, chest x-ray showed right upper lobe consolidation with cavitary changes Objective - Vital Signs Vital signs: Vital Signs Temp 97.5 F L 08/21/19 05:00 Pulse 64 08/21/19 12:12 Resp 20 08/21/19 05:00 BP 156/84 08/21/19 08:51 Pulse Ox 100 08/21/19 07:30 Intake & Output 08/20/19 08/21/19 08/21/19 18:59 06:59 18:59 Intake Total 540 425 200 Output Total 450 600 Balance 90 -175 200 Weight 42.638 kg Intake: IV 200 Oral 540 425 Output: Urine 450 600 Other: # Voids 1 1 # Bowel Movements 1 1 - Exam - Constitutional General appearance: disheveled, mild distress, thin - EENT Eyes: EOMI, PERRLA, normal appearance ENT: normal oropharynx Ears: bilateral: normal - Neck Carotids: bilateral: upstroke normal - Respiratory Respiratory: bilateral: diminished, wheezing - Cardiovascular Rhythm: regular Heart sounds: normal: S1, S2 - Gastrointestinal General gastrointestinal: normal bowel sounds - Neurologic Neurologic: CNII-XII intact - Musculoskeletal Musculoskeletal: gait normal, generalized weakness, strength equal bilaterally - Psychiatric Psychiatric: A&O x's 3, appropriate affect, intact judgment & insight - Labs CBC & Chem 7: 08/18/19 07:05 08/21/19 08:35 Labs: Abnormal Lab Results - Last 24 Hours (Table) 08/20/19 08/21/19 08/21/19 Range/Units 20:20 08:35 12:32 Sodium 134 L (137-145) mmol/L Creatinine 0.51 L (0.66-1.25) mg/dL POC Glucose (mg/dL) 138 H 164 H (75-99) mg/dL Calcium 8.3 L (8.4-10.2) mg/dL Microbiology - Last 24 Hours (Table) 08/19/19 09:02 Gram Stain - Final Sputum Sputum Culture - Final Chikis albicans Assessment and Plan Assessment: Right upper lobe necrotic pneumonia End-stage COPD with chronic hypoxic hypercapnic respiratory failure Protein calorie malnourishment of severe category Generalized weakness Plan: Overall plan includes Gentle rehydration Supplemental oxygen Broad-spectrum antibiotics Breathing treatment Sputum studies reviewed Computed tomography scan of the chest without contrast reviewed and compared with the one done in July finding discussed with the patient Further recommendations pending plan of care as per clinical response of the patient Agree with discharge planning follow-up in outpatient setting Time with Patient: Greater than 30
--- NOTE | 2019-08-27 16:34 | CDI ---
Documentation Clarification Form Date: 08/27/19 From: Agueda German CCS Phone: If you have a question about this query, please contact Hailey Moseley, Sterilizer Machine Operator at [phone] between 8am and 5pm. Admit Date: 08/16/19 Discharge Date: 08/21/19 Patient Name: Rob Coello Visit Number: [id number] ATTENTION: The Clinical Documentation Specialists (CDI) and [facility] Coding Staff appreciate your assistance in clarifying documentation. Please respond to the clarification below the line at the bottom and electronically sign. The CDI & [facility] Coding staff will review the response and follow-up if needed. Please note: Queries are made part of the Legal Health Record. If you have any questions, please contact the author of this message via ITS. Dear Dr. Mason, Right upper lobe necrotic pneumonia was documented in PNs, Consult. History/Risk Factors: COPD, Malnutrition, PHTN, Candidal esophagitis Clinical Indicators: Hypoxemic respiratory distress Vital signs: BP 100/63, RR 22, HI 77, O2 sat 77 on 4l WBC: 23.7, 18.1 X-ray: COPD w/ right upper lobe are of consolidation stable in appearance. Correlate for pneumonia Treatment: Nebulizer, oxygen nasal cannula 2 lpm Antibiotics: Levaquin IVPB 500 mg, Levaquin PO 500 mg Q24H In order to capture the severity of condition, please clarify if the condition signifies and you are treating for: Community acquired pneumonia Pneumonia w/ necrosis of lung Bacterial Pneumonia, specify causal organism (if known) Gram Negative Pneumonia Due to Strep ?Due to Staph ?Due to E. Coli ?Other bacteria (please specify) Viral Pneumonia, specify casual organism (if known) Healthcare Acquired Pneumonia/Pneumonia, unspecified Other, please specify Unable to determine MTDD
--- NOTE | 2019-08-27 16:55 | CDI ---
Documentation Clarification Form Date: 08/27/19 From: Agueda German CCS Phone: If you have a question about this query, please contact Hailey Moseley, Marketing Database Consultant at [phone] between 8am and 5pm. Admit Date: 08/16/19 Discharge Date: 08/21/19 Patient Name: Rob Coello Visit Number: [id number] ATTENTION: The Clinical Documentation Specialists (CDI) and [facility] Coding Staff appreciate your assistance in clarifying documentation. Please respond to the clarification below the line at the bottom and electronically sign. The CDI & [facility] Coding staff will review the response and follow-up if needed. Please note: Queries are made part of the Legal Health Record. If you have any questions, please contact the author of this message via ITS. Dear Dr. Mason, This patient is admitted with acute respiratory distress per H&P. History/Risk Factors: Pneumonia, COPD w/ Exac, Chronic respiratory failure, PHTN Clinical Indicators: Acute hypoxemic respiratory distress, O2 sat 77-87 on 4 L Labs: Carbon Dioxide 35 Vital Signs: BP 100/63, RR 22, TX 77, O2 sat 77 Treatment: Oxygen Nasal Cannula 2 lpm, Nebulizer In order to accurately reflect the severity of condition, please indicate if the above clinical findings and treatment signify a respiratory condition, such as: Acute hypoxemic respiratory distress Chronic hypoxemic respiratory failure Acute/ chronic hypoxemic respiratory failure Other, please specify Unable to determine MTDD
--- NOTE | 2019-09-01 12:10 | DS ---
DISCHARGE SUMMARY ADDENDUM TO DISCHARGE SUMMARY: ADDITIONS TO DISCHARGE DIAGNOSES: 1. Community-acquired pneumonia, most likely Gram-negative pneumonia. 2. Acute on chronic hypoxemic respiratory failure. MMODL / IJN: [id number] /
--- NOTE | 2019-09-02 10:45 | DS ---
DISCHARGE SUMMARY DATE OF ADMISSION: 08/16/2019. DISCHARGE DATE: 08/21/2019. DISCHARGE MEDICATIONS: 1. Eliquis 2.5 b.i.d. 2. Omeprazole 40 daily. 3. Potassium chloride 8 mEq daily. 4. Lasix 20 mg daily. 5. Ceftin 500 b.i.d. for a week. 6. Medrol Dosepak. 7. Nicotine patch 14 mg daily. 8. Levaquin 500 mg daily for 5 days. 9. Nystatin suspension 5 mL q.i.d. 10.Prednisone taper. HOSPITAL COURSE OF EVENTS: This is a white male was admitted with community-acquired pneumonia, COPD exacerbation, end-stage COPD, severe dehydration, gastroenteritis, possible shows some mild CHF. The patient was treated with IV steroids, IV antibiotics, antifungals for thrush. The patient was stabilized by pulmonology and Cardiology over the next 24 to 48 hours at which time he was discharged home to follow up as an outpatient. Prognosis guarded due to end-stage COPD and smoking for multiple years. MMODL / IJN: [id number] /
== END 2019-08-21 14:16 | disposition home or self-care (01) | DRG 177 ==
LOC: 6NMEDSUR 10:46
PROVIDERS: ADMIT Family Medicine; ATTEND Family Medicine
PROC: 0DB68ZX Excision of Stomach, Via Natural or Artificial Opening Endoscopic, Diagnostic (ICD-10-PCS; 2019-08-21)
PROC: 0DB28ZX Excision of Middle Esophagus, Via Natural or Artificial Opening Endoscopic, Diagnostic (ICD-10-PCS; principal; 2019-08-21 07:30)
DX: J15.6 Pneumonia due to other Gram-negative bacteria (principal); E43 Unspecified severe protein-calorie malnutrition; J96.21 Acute and chronic respiratory failure with hypoxia; J44.1 Chronic obstructive pulmonary disease with (acute) exacerbation; J96.12 Chronic respiratory failure with hypercapnia; Z68.1 Body mass index [BMI] 19.9 or less, adult; B37.81 Candidal esophagitis; J44.0 Chronic obstructive pulmonary disease with (acute) lower respiratory infection; I27.20 Pulmonary hypertension, unspecified; I95.9 Hypotension, unspecified; E86.0 Dehydration; K21.9 Gastro-esophageal reflux disease without esophagitis; G89.29 Other chronic pain; K31.84 Gastroparesis; G62.9 Polyneuropathy, unspecified; M81.0 Age-related osteoporosis without current pathological fracture; F41.9 Anxiety disorder, unspecified; F32.9 Major depressive disorder, single episode, unspecified; K29.70 Gastritis, unspecified, without bleeding; K59.00 Constipation, unspecified; Z71.3 Dietary counseling and surveillance; Z79.01 Long term (current) use of anticoagulants; Z79.899 Other long term (current) drug therapy; Z86.711 Personal history of pulmonary embolism; Z86.718 Personal history of other venous thrombosis and embolism; Z20.5 Contact with and (suspected) exposure to viral hepatitis; Z87.11 Personal history of peptic ulcer disease; Z98.84 Bariatric surgery status; Z87.19 Personal history of other diseases of the digestive system; Z98.890 Other specified postprocedural states; Z99.81 Dependence on supplemental oxygen; Z87.311 Personal history of (healed) other pathological fracture; Z90.49 Acquired absence of other specified parts of digestive tract; Z87.891 Personal history of nicotine dependence; Z88.8 Allergy status to other drugs, medicaments and biological substances; Z80.7 Family history of other malignant neoplasms of lymphoid, hematopoietic and related tissues; Z84.89 Family history of other specified conditions
CPT/HCPCS: 43239; 71045; 71046; 71250; 74160; 76700; 80048; 80053; 80076; 83735; 85025; 87070; 87205; 87502; 88305; 88312; 93005; 94640; 94760